=== PATIENT | male | born 1965 | race African-American/Black ===

== ENCOUNTER 2018-02-05 22:29 | Emergency (ER) | payer SELFPAY ==
[2018-02-05 22:39] VITALS: BP 156/99; PULSE 96; TEMP 98.8; BMI 24.4
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
== END 2018-02-06 00:11 | disposition home or self-care (01) ==
LOC: JER 22:29
DX: S02.32XA Fracture of orbital floor, left side, initial encounter for closed fracture (principal); S02.40DA Maxillary fracture, left side, initial encounter for closed fracture; S02.2XXA Fracture of nasal bones, initial encounter for closed fracture; Y04.2XXA Assault by strike against or bumped into by another person, initial encounter; Y93.89 Activity, other specified; Y92.414 Local residential or business street as the place of occurrence of the external cause; Y99.8 Other external cause status; H11.31 Conjunctival hemorrhage, right eye; Z59.0 Homelessness
CPT/HCPCS: 70450-TC; 70486-TC; 99284-25

== ENCOUNTER 2018-06-11 16:46 | Inpatient (IN) | payer OTHER ==
[2018-06-11 20:29] VITALS: BMI 24.5
[2018-06-11] MEDS ORDERED: MELATONIN 5 MG TABLETS PO PRN (22:00)
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
[2018-06-11] MEDS ORDERED: P-EPHED 60MG/TRIPROLIDI 2.5MG TABLET PO PRN (22:18)
[2018-06-11] MEDS ORDERED: LOPERAMIDE HCL 2 MG CAPSULE PO PRN (22:18)
[2018-06-11] MEDS ORDERED: MAGNESIUM HYDROX 2400MG/30ML ORAL SUSPENSION 30 ML CUP PO PRN (22:18)
[2018-06-11] MEDS ORDERED: chlordiazePOXIDE HCL 25 MG CAPSULE PO PRN (22:18)
[2018-06-11] MEDS ORDERED: hydrOXYzine PAMOATE 50 MG CAPSULE (FP) PO PRN (22:18)
[2018-06-11] MEDS ORDERED: MAGNESIUM CITRATE 300 ML BOTTLE PO PRN (22:18)
[2018-06-11] MEDS ORDERED: MENTHOL/PHENOL 1 EACH UD MM PRN (22:18)
[2018-06-11] MEDS ORDERED: MAG HYDROX/AL HYDROX/SIMETH 30 ML UNIT-DOSE CUP PO PRN (22:18)
[2018-06-11] MEDS ORDERED: NICOTINE POLACRILEX 2 MG GUM BUC PRN (22:18)
[2018-06-11] MEDS ORDERED: IBUPROFEN 400 MG TABLET (FP) PO PRN (22:18)
[2018-06-11] MEDS ORDERED: guaiFENesin/D-METHORPHAN HB 10 ML UNIT-DOSE CUPS PO PRN (22:18)
[2018-06-11] MEDS ORDERED: ACETAMINOPHEN 325 MG TABLET (FP) PO PRN (22:18)
[2018-06-11] MEDS: chlordiazePOXIDE HCL 25 MG CAPSULE PO SCH (23:56)
[2018-06-12] MEDS: chlordiazePOXIDE HCL 25 MG CAPSULE PO SCH ×4 (05:58→22:57)
[2018-06-12 10:34] LABS: HEMATOCRIT 36.2 % (35.4-49); HEMOGLOBIN 12.5 GM/dL (11.7-16.9); MCH 31.4 pg (25.7-33.7); MCHC 34.6 g/dl (32.0-35.9); MEAN CELL VOLUME 90.6 fl (80-96); MEAN PLT VOLUME 8.2 fl (7.5-11.1); PLATELET COUNT 281 K/MM3 (134-434); RDW 12.7 % (11.9-15.9); WHITE BLOOD COUNT 4.2 K/mm3 (4.0-10.0)
[2018-06-12 10:50] LABS: CHLORIDE 112 mmol/L (98-107); SODIUM 148 mmol/L (136-145)
[2018-06-12] MEDS: PRENATAL VITAMINS W/ FOLIC ACID TABLET (FP) PO SCH (11:04)
[2018-06-12 11:06] LABS: ALBUMIN 2.7 g/dl (3.4-5.0); ALK PHOS 85 U/L (45-117); ANION GAP 10 (8-16); BILIRUBIN,TOTAL 0.3 mg/dL (0.2-1.0); BLOOD UREA NITROGEN 19 mg/dL (7-18); CALCIUM 8.9 mg/dL (8.5-10.1); CO2 26 mmol/L (21-32); CREATININE 1.3 mg/dL (0.7-1.3); GLUCOSE,RANDOM 99 mg/dL (74-106); SGOT/AST 17 U/L (15-37); SGPT/ALT 25 U/L (12-78); TOT PROT 5.5 g/dl (6.4-8.2)
[2018-06-12] MEDS: NICOTINE 14 MG/24 HOURS TOPICAL PATCH TD SCH (11:06)
[2018-06-12] MEDS ORDERED: PNEUMOC 13-VAL CONJ-DIP CRM/PF 0.5 ML DISP.SYRIN IM ONE ×2 (12:00)
[2018-06-12] MEDS ORDERED: PNEUMOCOCCAL 23 VACCINE 0.5 ML VIAL IM ONE (12:00)
--- NOTE | 2018-06-12 13:16 | EKG ---
Test Reason : Blood Pressure : / mmHG Vent. Rate : 059 BPM Atrial Rate : 059 BPM P-R Int : 150 ms QRS Dur : 084 ms QT Int : 444 ms P-R-T Axes : -08 015 031 degrees QTc Int : 439 ms SINUS BRADYCARDIA WITH SINUS ARRHYTHMIA OTHERWISE NORMAL ECG NO PREVIOUS ECGS AVAILABLE Confirmed by Mario Alberto Ruiz MD ([id number]) on 06/12/2018 1:15:59 PM Referred By: Sreedhar Bob Confirmed By:Mario Alberto Ruiz MD
--- NOTE | 2018-06-12 14:36 | PN ---
S CIWA - CIWA Score Nausea/Vomitin-No Nausea/No Vomiting Muscle Tremors: None Anxiety: 4-Mod. Anxious/Guarded Agitation: 2 Paroxysmal Sweats: 2 Orientation: 0-Oriented Tacttile Disturbances: 2-Mild Itch/Numbness/Burn Auditory Disturbances: 0-None Visual Disturbances: 3-Moderate Sensitivity Headache: 0-None Present CIWA-Ar Total Score: 13 S Progress Note (SOAP) Subjective: Sweating, Anxious, Fatigue. Objective: PATIENT A & O X 3. NO ACUTE DISTRESS. 06/12/18 14:37 Vital Signs Temperature 97.3 F L 06/12/18 13:27 Pulse Rate 68 06/12/18 13:27 Respiratory Rate 15 06/12/18 13:27 Blood Pressure 127/80 06/12/18 13:27 O2 Sat by Pulse Oximetry (%) Laboratory Tests 06/12/18 06/12/18 06/12/18 07:30 07:30 07:30 WBC 4.2 RBC 4.00 Hgb 12.5 Hct 36.2 MCV 90.6 MCH 31.4 MCHC 34.6 RDW 12.7 Plt Count 281 MPV 8.2 Sodium 148 H Potassium 4.0 Chloride 112 H Carbon Dioxide 26 Anion Gap 10 BUN 19 H Creatinine 1.3 Creat Clearance w eGFR 57.75 Random Glucose 99 Calcium 8.9 Total Bilirubin 0.3 AST 17 ALT 25 Alkaline Phosphatase 85 Total Protein 5.5 L Albumin 2.7 L RPR Titer Nonreactive LABS NOTED. UA RESULTS PENDING. 06/12/18 14:38 Assessment: 06/12/18 14:37 WITHDRAWAL SYMPTOMS. Plan: CONTINUE DETOX. INCREASE DAILY PO FLUID INTAKE.
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
[2018-06-12] MEDS: THIAMINE HCL 100 MG TABLET (FP) PO SCH (22:56)
[2018-06-13] MEDS: chlordiazePOXIDE HCL 25 MG CAPSULE PO SCH ×3 (06:44→17:47)
[2018-06-13] MEDS: PRENATAL VITAMINS W/ FOLIC ACID TABLET (FP) PO SCH (10:32)
[2018-06-13] MEDS: NICOTINE 14 MG/24 HOURS TOPICAL PATCH TD SCH (10:33)
--- NOTE | 2018-06-13 12:16 | PN ---
S CIWA - CIWA Score Nausea/Vomitin-No Nausea/No Vomiting Muscle Tremors: 2 Anxiety: 3 Agitation: 0-Normal Activity Paroxysmal Sweats: 3 Orientation: 0-Oriented Tacttile Disturbances: 2-Mild Itch/Numbness/Burn Auditory Disturbances: 0-None Visual Disturbances: 2-Mild Sensitivity Headache: 0-None Present CIWA-Ar Total Score: 12 BHS Progress Note (SOAP) Subjective: Sweating, Anxious, Fatigue. Objective: PATIENT A & O X 3. NO ACUTE DISTRESS. 06/13/18 12:20 Vital Signs Temperature 97.7 F 06/13/18 09:57 Pulse Rate 72 06/13/18 09:57 Respiratory Rate 16 06/13/18 09:57 Blood Pressure 126/79 06/13/18 09:57 O2 Sat by Pulse Oximetry (%) Laboratory Tests 06/12/18 06/12/18 06/12/18 07:30 07:30 07:30 WBC 4.2 RBC 4.00 Hgb 12.5 Hct 36.2 MCV 90.6 MCH 31.4 MCHC 34.6 RDW 12.7 Plt Count 281 MPV 8.2 Sodium 148 H Potassium 4.0 Chloride 112 H Carbon Dioxide 26 Anion Gap 10 BUN 19 H Creatinine 1.3 Creat Clearance w eGFR 57.75 Random Glucose 99 Calcium 8.9 Total Bilirubin 0.3 AST 17 ALT 25 Alkaline Phosphatase 85 Total Protein 5.5 L Albumin 2.7 L RPR Titer Nonreactive LABS NOTED. UA RESULTS PENDING. 06/13/18 12:23 Assessment: 06/13/18 12:21 WITHDRAWAL SYMPTOMS. Plan: CONTINUE DETOX. ENCOURAGE AMBULATION.
[2018-06-13 19:22] LABS: URINE APPEARANCE SLCLOUDY; URINE BILIRUBIN NEGATIVE (<2.0 mg/dL); URINE COLOR YELLOW; URINE GLUCOSE (UA) NEGATIVE (NEGATIVE); URINE KETONE NEGATIVE (NEGATIVE); URINE LEUK ESTERASE NEGATIVE (NEGATIVE); URINE NITRITE NEGATIVE (NEGATIVE); URINE PROTEIN NEGATIVE (NEGATIVE); URINE UROBILINOGEN NEGATIVE mg/dL (0.2-1.0)
[2018-06-13] MEDS: chlordiazePOXIDE 5 MG CAPSULE PO SCH (22:17)
[2018-06-13] MEDS: THIAMINE HCL 100 MG TABLET (FP) PO SCH (22:17)
[2018-06-14] MEDS: chlordiazePOXIDE 5 MG CAPSULE PO SCH ×3 (06:20→17:13)
[2018-06-14] MEDS: PRENATAL VITAMINS W/ FOLIC ACID TABLET (FP) PO SCH (12:20)
[2018-06-14] MEDS: NICOTINE 14 MG/24 HOURS TOPICAL PATCH TD SCH (12:20)
--- NOTE | 2018-06-14 13:44 | PN ---
BHS Progress Note (SOAP) Subjective: Sweating, Fatigue. Objective: PATIENT A & O X 3. NO ACUTE DISTRESS. 06/14/18 13:43 Vital Signs Temperature 98.1 F 06/14/18 09:54 Pulse Rate 71 06/14/18 09:54 Respiratory Rate 18 06/14/18 09:54 Blood Pressure 119/71 06/14/18 09:54 O2 Sat by Pulse Oximetry (%) Laboratory Tests 06/12/18 06/12/18 06/12/18 07:30 07:30 07:30 WBC 4.2 RBC 4.00 Hgb 12.5 Hct 36.2 MCV 90.6 MCH 31.4 MCHC 34.6 RDW 12.7 Plt Count 281 MPV 8.2 Sodium 148 H Potassium 4.0 Chloride 112 H Carbon Dioxide 26 Anion Gap 10 BUN 19 H Creatinine 1.3 Creat Clearance w eGFR 57.75 Random Glucose 99 Calcium 8.9 Total Bilirubin 0.3 AST 17 ALT 25 Alkaline Phosphatase 85 Total Protein 5.5 L Albumin 2.7 L Urine Color Urine Appearance Urine pH Ur Specific [place] Urine Protein Urine Glucose (UA) Urine Ketones Urine Blood Urine Nitrite Urine Bilirubin Urine Urobilinogen Ur Leukocyte Esterase RPR Titer Nonreactive 06/13/18 13:35 WBC RBC Hgb Hct MCV MCH MCHC RDW Plt Count MPV Sodium Potassium Chloride Carbon Dioxide Anion Gap BUN Creatinine Creat Clearance w eGFR Random Glucose Calcium Total Bilirubin AST ALT Alkaline Phosphatase Total Protein Albumin Urine Color Yellow Urine Appearance Slcloudy Urine pH 8.0 Ur Specific [place] 1.019 Urine Protein Negative Urine Glucose (UA) Negative Urine Ketones Negative Urine Blood Negative Urine Nitrite Negative Urine Bilirubin Negative Urine Urobilinogen Negative Ur Leukocyte Esterase Negative RPR Titer LABS NOTED. Assessment: 06/14/18 13:43 WITHDRAWAL SYMPTOMS. Plan: CONTINUE DETOX. PATIENT SCHEDULED FOR D/C TOMORROW.
[2018-06-14] MEDS: chlordiazePOXIDE HCL 10 MG CAPSULE PO SCH (22:31)
[2018-06-14] MEDS: THIAMINE HCL 100 MG TABLET (FP) PO SCH (22:31)
[2018-06-15] MEDS: chlordiazePOXIDE HCL 10 MG CAPSULE PO SCH (06:02)
[2018-06-15] MEDS: PRENATAL VITAMINS W/ FOLIC ACID TABLET (FP) PO SCH (08:59)
[2018-06-15 09:32] VITALS: BP 135/82; PULSE 70; TEMP 97.9
--- NOTE | 2018-06-15 15:15 | PN ---
BHS Progress Note (SOAP) Subjective: Patient denies current Detox symptoms and reports that he feels well overall. Objective: PATIENT A & O X 3, OBSERVED AMBULATING ON UNIT. NO ACUTE DISTRESS. 06/15/18 15:14 Vital Signs Temperature 97.9 F 06/15/18 09:31 Pulse Rate 70 06/15/18 09:31 Respiratory Rate 18 06/15/18 09:31 Blood Pressure 135/82 06/15/18 09:31 O2 Sat by Pulse Oximetry (%) Laboratory Tests 06/12/18 06/12/18 06/12/18 07:30 07:30 07:30 WBC 4.2 RBC 4.00 Hgb 12.5 Hct 36.2 MCV 90.6 MCH 31.4 MCHC 34.6 RDW 12.7 Plt Count 281 MPV 8.2 Sodium 148 H Potassium 4.0 Chloride 112 H Carbon Dioxide 26 Anion Gap 10 BUN 19 H Creatinine 1.3 Creat Clearance w eGFR 57.75 Random Glucose 99 Calcium 8.9 Total Bilirubin 0.3 AST 17 ALT 25 Alkaline Phosphatase 85 Total Protein 5.5 L Albumin 2.7 L Urine Color Urine Appearance Urine pH Ur Specific [place] Urine Protein Urine Glucose (UA) Urine Ketones Urine Blood Urine Nitrite Urine Bilirubin Urine Urobilinogen Ur Leukocyte Esterase RPR Titer Nonreactive 06/13/18 13:35 WBC RBC Hgb Hct MCV MCH MCHC RDW Plt Count MPV Sodium Potassium Chloride Carbon Dioxide Anion Gap BUN Creatinine Creat Clearance w eGFR Random Glucose Calcium Total Bilirubin AST ALT Alkaline Phosphatase Total Protein Albumin Urine Color Yellow Urine Appearance Slcloudy Urine pH 8.0 Ur Specific [place] 1.019 Urine Protein Negative Urine Glucose (UA) Negative Urine Ketones Negative Urine Blood Negative Urine Nitrite Negative Urine Bilirubin Negative Urine Urobilinogen Negative Ur Leukocyte Esterase Negative RPR Titer LABS NOTED. Assessment: 06/15/18 15:14 COMPLETION OF DETOX REGIMEN. Plan: PATIENT SCHEDULED FOR DISCHARGE FROM DETOX UNIT TODAY.
--- NOTE | 2018-06-15 15:21 | DS ---
[facility] Detox Discharge Summary Admission Date: 06/11/18 Discharge Date: 06/15/18 - History Present History: Alcohol Dependence Additional Comments: [facility] ([facility]) FOR HOUSING AND TO '[facility]' OUTPATIENT SUBSTANCE USE TREATMENT PROGRAM (Elie BOND) FOR AFTERCARE. PATIENT WAS DISCHARGED FROM DETOX UNIT IN STABLE MEDICAL CONDITION. Pertinent Past History: Anxiety, Nicotine Dependence. - Physical Exam Results Vital Signs: Vital Signs Temperature 97.9 F 06/15/18 09:31 Pulse Rate 70 06/15/18 09:31 Respiratory Rate 18 06/15/18 09:31 Blood Pressure 135/82 06/15/18 09:31 O2 Sat by Pulse Oximetry (%) Pertinent Admission Physical Exam Findings: WITHDRAWAL SYMPTOMS. Laboratory Tests 06/12/18 06/12/18 06/12/18 07:30 07:30 07:30 WBC 4.2 RBC 4.00 Hgb 12.5 Hct 36.2 MCV 90.6 MCH 31.4 MCHC 34.6 RDW 12.7 Plt Count 281 MPV 8.2 Sodium 148 H Potassium 4.0 Chloride 112 H Carbon Dioxide 26 Anion Gap 10 BUN 19 H Creatinine 1.3 Creat Clearance w eGFR 57.75 Random Glucose 99 Calcium 8.9 Total Bilirubin 0.3 AST 17 ALT 25 Alkaline Phosphatase 85 Total Protein 5.5 L Albumin 2.7 L Urine Color Urine Appearance Urine pH Ur Specific [place] Urine Protein Urine Glucose (UA) Urine Ketones Urine Blood Urine Nitrite Urine Bilirubin Urine Urobilinogen Ur Leukocyte Esterase RPR Titer Nonreactive 06/13/18 13:35 WBC RBC Hgb Hct MCV MCH MCHC RDW Plt Count MPV Sodium Potassium Chloride Carbon Dioxide Anion Gap BUN Creatinine Creat Clearance w eGFR Random Glucose Calcium Total Bilirubin AST ALT Alkaline Phosphatase Total Protein Albumin Urine Color Yellow Urine Appearance Slcloudy Urine pH 8.0 Ur Specific [place] 1.019 Urine Protein Negative Urine Glucose (UA) Negative Urine Ketones Negative Urine Blood Negative Urine Nitrite Negative Urine Bilirubin Negative Urine Urobilinogen Negative Ur Leukocyte Esterase Negative RPR Titer LABS NOTED. - Treatment Hospital Course: Detox Protocol Followed, Detoxed Safely, Responded well, Discharged Condition Good Patient has Accepted a Rehab Referral to: PT. TO ATTEND [facility] OP SUBSTNACE TREATMENT PROGRAM (Elie BOND). - Medication Discharge Medications: Ambulatory Orders NK [No Known Home Medication] 02/05/18 - Diagnosis (1) Alcohol dependence with uncomplicated withdrawal Status: Acute (2) Nicotine dependence Status: Chronic Qualifiers: Nicotine product type: cigarettes Substance use status: uncomplicated Qualified Code(s): F17.210 - Nicotine dependence, cigarettes, uncomplicated (3) Substance induced mood disorder Status: Acute - AMA Did Patient Leave Against Medical Advice: No
== END 2018-06-15 09:10 | disposition home or self-care (01) | DRG 775 ==
LOC: YASAS 16:46 → Y3N 22:56
PROVIDERS: ADMIT Surgery; ATTEND Surgery
PROC: HZ2ZZZZ Detoxification Services for Substance Abuse Treatment (ICD-10-PCS; principal; 2018-06-11)
DX: F10.230 Alcohol dependence with withdrawal, uncomplicated (principal); F17.210 Nicotine dependence, cigarettes, uncomplicated; F19.24 Other psychoactive substance dependence with psychoactive substance-induced mood disorder
CPT/HCPCS: 36415; 80053; 81003; 85027; 86593; 93005; 93010

== ENCOUNTER 2018-07-24 08:17 | Inpatient (IN) | payer OTHER ==
[2018-07-24 08:36] VITALS: BMI 23.7
--- NOTE | 2018-07-24 09:01 | HP ---
COWS - Scale Resting Pulse: 1= NE 81-100 Sweatin= Chills/Flushing Restless Observation: 3= Extraneous Movement Pupil Size: 1= Pupils >than Normal Bone or Joint Aches: 2= Severe Diffuse Aches Runny Nose/ Eye Tearin= Runny Nose/Eyes GI Upset > 30mins: 2= Nausea/Diarrhea Tremor Observation: 2= Slight Tremor Visible Yawning Observation: 2= >3x During Session Anxiety or Irritability: 2=Irritable/Anxious Goose Flesh Skin: 0=Smooth Skin COWS Score: 18 CIWA Score - CIWA Score Nausea/Vomitin Muscle Tremors: 3 Anxiety: 3 Agitation: 2 Paroxysmal Sweats: 1-Minimal Palms Moist Orientation: 0-Oriented Tacttile Disturbances: 1-Very Mild Itch/Numbness Auditory Disturbances: 1-Very Mild Visual Disturbances: 1-Very Mild Sensitivity Headache: 2-Mild CIWA-Ar Total Score: 16 Admission ROS BHS - HPI Chief Complaint: i need help to stop using heroin and alcohol Allergies/Adverse Reactions: Allergies Allergy/AdvReac Type Severity Reaction Status Date / Time shrimp AdvReac Verified 07/24/18 09:11 History of Present Illness: this 52 years old male with heroin and alcoholism,seeking detox,withdrawal symptom,last treatment 06/11/18 to 06/15/18 syncope nicotine dependence weight loss anxiety,depression,insomnia multiples admissions to detox but keep relapsing longest period of sobriety 5 years Exam Limitations: No Limitations - Ebola screening Have you traveled outside of the country in the last 21 days: No Have you had contact with anyone from an Ebola affected area: No Have you been sick,other than usual withdrawal symptoms: No Do you have a fever: No - Review of Systems Constitutional: Chills, Loss of Appetite, Malaise, Night Sweats, Changes in sleep, Weakness EENT: reports: Tearing, Nose Congestion Respiratory: reports: No Symptoms reported Cardiac: reports: No Symptoms Reported GI: reports: Nausea, Vomiting, Abdominal cramping : reports: No Symptoms Reported Musculoskeletal: reports: Back Pain, Joint Pain, Muscle Pain, Joint Stiffness Integumentary: reports: Dryness Neuro: reports: Headache, Tremors Endocrine: reports: No Symptoms Reported Hematology: reports: No Symptoms Reported Psychiatric: reports: No Sypmtoms Reported, Judgement Intact, Mood/Affect Appropiate, Orientated x3, Agitated, Anxious, Depressed Other Systems: Reviewed and Negative (insomnia) Patient History - Patient Medical History Hx Anemia: No Hx Asthma: No Hx Chronic Obstructive Pulmonary Disease (COPD): No Hx Cancer: No Hx Cardiac Disorders: No Hx Congestive Heart Failure: No Hx Hypertension: No Hx Hypercholesterolemia: No Hx Pacemaker: No HX Cerebrovascular Accident: No Hx Seizures: No Hx Dementia: No Hx Diabetes: No Hx Gastrointestinal Disorders: No Hx Liver Disease: No Hx Genitourinary Disorders: No Hx Sexually Transmitted Disorders: No Hx Renal Disease (ESRD): No Hx Thyroid Disease: No Hx Human Immunodeficiency Virus (HIV): No (last 06/11/18 to 06/15/18) Hx Hepatitis C: No Hx Depression: No Hx Suicide Attempt: No Hx Bipolar Disorder: No Hx Schizophrenia: No Other Medical History: no suicidal,no homicidal - Patient Surgical History Past Surgical History: No Hx Neurologic Surgery: No Hx Cataract Extraction: No Hx Cardiac Surgery: No Hx Lung Surgery: No Hx Breast Surgery: No Hx Breast Biopsy: No Hx Abdominal Surgery: No Hx Appendectomy: No Hx Cholecystectomy: No Hx Genitourinary Surgery: No Hx Orthopedic Surgery: No Anesthesia Reaction: No - PPD History Previous Implant?: Yes Documented Results: Negative w/proof Implanted On Prior [facility] Admission?: Yes Date: 06/14/18 PPD to be Administered?: No - Smoking Cessation Smoking history: Current every day smoker Have you smoked in the past 12 months: Yes Aproximately how many cigarettes per day: 4 Cigars Per Day: 0 Hx Chewing Tobacco Use: No Initiated information on smoking cessation: Yes 'Breaking Loose' booklet given: 07/24/18 - Substance & Tx. History Hx Alcohol Use: Yes Hx Substance Use: Yes Substance Use Type: Alcohol, Heroin Hx Substance Use Treatment: Yes ([facility] 06/11/18 to 06/15/18) - Substances Abused Heroin Route: Inhalation Frequency: Daily Amount used: 3 bags Age of first use: 27 Date of Last Use: 07/23/18 Alcohol Route: Oral Frequency: Daily Amount used: 1 pint of vodka/2 of 6 packs of 12 ozs of beer Age of first use: 17 Date of Last Use: 07/24/18 Family Disease History - Family Disease History Family Disease History: Other: Father (ALCOHOLISM- CIRRHOSIS OF LIVER) Admission Physical Exam BHS - Vital Signs Vital Signs: Vital Signs - 24 hr 07/24/18 08:33 Temperature 97.6 F Pulse Rate 81 Respiratory 19 Rate Blood Pressure 135/79 - Physical General Appearance: Yes: Moderate Distress, Tremorous, Irritable, Sweating, Anxious HEENTM: Yes: Normal ENT Inspection, BRUCE, Pharynx Normal Respiratory: Yes: Lungs Clear, Normal Breath Sounds, No Respiratory Distress Neck: Yes: Within Normal Limits, Supple, Trachea in good position Breast: Yes: Within Normal Limits Cardiology: Yes: Within Normal Limits, Regular Rhythm, Regular Rate, S1, S2 Genitourinary: Yes: Within Normal Limits Back: Yes: Muscle Spasm Musculoskeletal: Yes: full range of Motion, Back pain, Muscle Pain Extremities: Yes: Within Normal Limits, Normal Range of Motion, Tremors Neurological: Yes: tattoo designer II-XII NML intact, Fully Oriented, Alert, Motor Strength 5/5 Integumentary: Yes: Dry Lymphatic: Yes: Within Normal Limits - Diagnostic (1) Opioid dependence with withdrawal Current Visit: Yes Status: Acute (2) Alcohol dependence with uncomplicated withdrawal Current Visit: Yes Status: Acute (3) Nicotine dependence Current Visit: Yes Status: Acute Qualifiers: Nicotine product type: cigarettes Substance use status: uncomplicated Qualified Code(s): F17.210 - Nicotine dependence, cigarettes, uncomplicated (4) Syncope Current Visit: Yes Status: Acute Cleared for Admission [facility] - Detox or Rehab [facility] Level of Care: Medically Managed Detox Regimen/Protocol: Methadone/Librium [facility] Breath Alcohol Content Breath Alcohol Content: 0 Urine Drug Screen - Results Drug Screen Negative: No Urine Drug Screen Results: ANNE-MARIE-Cocaine, OPI-Opiates, FEN-Fentanyl
[2018-07-24] MEDS ORDERED: MENTHOL/PHENOL 1 EACH UD MM PRN (09:11)
[2018-07-24] MEDS ORDERED: MAGNESIUM CITRATE 300 ML BOTTLE PO PRN (09:11)
[2018-07-24] MEDS ORDERED: MAGNESIUM HYDROX 2400MG/30ML ORAL SUSPENSION 30 ML CUP PO PRN (09:11)
[2018-07-24] MEDS ORDERED: LOPERAMIDE HCL 2 MG CAPSULE PO PRN (09:11)
[2018-07-24] MEDS ORDERED: guaiFENesin/D-METHORPHAN HB 10 ML UNIT-DOSE CUPS PO PRN (09:11)
[2018-07-24] MEDS ORDERED: ACETAMINOPHEN 325 MG TABLET (FP) PO PRN (09:11)
[2018-07-24] MEDS ORDERED: IBUPROFEN 400 MG TABLET (FP) PO PRN (09:11)
[2018-07-24] MEDS ORDERED: hydrOXYzine PAMOATE 25 MG CAPSULE (FP) PO PRN (09:11)
[2018-07-24] MEDS ORDERED: P-EPHED 60MG/TRIPROLIDI 2.5MG TABLET PO PRN (09:11)
[2018-07-24] MEDS ORDERED: chlordiazePOXIDE HCL 25 MG CAPSULE PO PRN (09:11)
[2018-07-24] MEDS ORDERED: MAG HYDROX/AL HYDROX/SIMETH 30 ML UNIT-DOSE CUP PO PRN (09:11)
[2018-07-24] MEDS ORDERED: METHADONE HCL 10 MG TABLET (FOR DETOX USE ONLY) PO ONE ×2 (10:10→23:00)
[2018-07-24] MEDS: PRENATAL VITAMINS W/ FOLIC ACID TABLET (FP) PO SCH (11:53)
[2018-07-24] MEDS: chlordiazePOXIDE HCL 25 MG CAPSULE PO SCH ×3 (11:55→22:04)
--- NOTE | 2018-07-24 16:04 | EKG ---
Test Reason : Blood Pressure : / mmHG Vent. Rate : 077 BPM Atrial Rate : 077 BPM P-R Int : 148 ms QRS Dur : 088 ms QT Int : 408 ms P-R-T Axes : 078 041 029 degrees QTc Int : 461 ms NORMAL SINUS RHYTHM NORMAL ECG WHEN COMPARED WITH ECG OF 11-JUN-2018 23:41, NO SIGNIFICANT CHANGE WAS FOUND Confirmed by Mario Alberto Ruiz MD ([id number]) on 07/24/2018 4:04:03 PM Referred By: Confirmed By:Mario Alberto Ruiz MD
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
[2018-07-24 18:45] LABS: URINE APPEARANCE CLEAR; URINE BILIRUBIN NEGATIVE (<2.0 mg/dL); URINE COLOR STRAW; URINE GLUCOSE (UA) NEGATIVE (NEGATIVE); URINE KETONE NEGATIVE (NEGATIVE); URINE LEUK ESTERASE NEGATIVE (NEGATIVE); URINE NITRITE NEGATIVE (NEGATIVE); URINE PROTEIN NEGATIVE (NEGATIVE); URINE UROBILINOGEN NEGATIVE mg/dL (0.2-1.0)
[2018-07-24] MEDS ORDERED: MELATONIN 5 MG TABLETS PO PRN (22:00)
[2018-07-24] MEDS: THIAMINE HCL 100 MG TABLET (FP) PO SCH (22:04)
[2018-07-25] MEDS: chlordiazePOXIDE HCL 25 MG CAPSULE PO SCH ×4 (06:29→22:10)
[2018-07-25] MEDS ORDERED: METHADONE HCL 10 MG TABLET (FOR DETOX USE ONLY) PO SCH (10:00)
[2018-07-25] MEDS: PRENATAL VITAMINS W/ FOLIC ACID TABLET (FP) PO SCH (10:21)
[2018-07-25 10:26] LABS: HEMOGLOBIN 12.5 GM/dL (11.7-16.9); MCH 29.9 pg (25.7-33.7); MCHC 32.8 g/dl (32.0-35.9); MEAN PLT VOLUME 8.2 fl (7.5-11.1); PLATELET COUNT 228 K/MM3 (134-434); RBC 4.17 M/mm3 (4.00-5.60); RDW 12.2 % (11.9-15.9); WHITE BLOOD COUNT 6.7 K/mm3 (4.0-10.0)
[2018-07-25 11:10] LABS: ALBUMIN 3.3 g/dl (3.4-5.0); ALK PHOS 56 U/L (45-117); ANION GAP 11 MMOL/L (8-16); BILIRUBIN,TOTAL 0.2 mg/dL (0.2-1); BLOOD UREA NITROGEN 17 mg/dL (7-18); CALCIUM 8.5 mg/dL (8.5-10.1); CHLORIDE 107 mmol/L (98-107); CO2 27 mmol/L (21-32); CREATININE 1.3 mg/dL (0.55-1.3); GLUCOSE,RANDOM 94 mg/dL (74-106); POTASSIUM 3.9 mmol/L (3.5-5.1); SGOT/AST 19 U/L (15-37); SGPT/ALT 27 U/L (13-61); SODIUM 145 mmol/L (136-145); TOT PROT 6.2 g/dl (6.4-8.2)
[2018-07-25] MEDS ORDERED: FLU VACCINE QUAD 60 MCG/0.5 ML (MDV 18-19) IM ONE (12:00)
--- NOTE | 2018-07-25 13:43 | PN ---
S CIWA - CIWA Score Nausea/Vomitin Muscle Tremors: 4-Moderate,w/Arms Extend Anxiety: 4-Mod. Anxious/Guarded Agitation: 4-Moderately Restless Paroxysmal Sweats: 3 Orientation: 0-Oriented Tacttile Disturbances: 1-Very Mild Itch/Numbness Auditory Disturbances: 0-None Visual Disturbances: 0-None Headache: 0-None Present CIWA-Ar Total Score: 19 BHS COWS - Scale Resting Pulse: 0= IN 80 or Below Sweatin=Flushed/Facial Moisture Restless Observation: 3= Extraneous Movement Pupil Size: 1= Pupils >than Normal Bone or Joint Aches: 2= Severe Diffuse Aches Runny Nose/ Eye Tearin= Runny Nose/Eyes GI Upset > 30mins: 2= Nausea/Diarrhea Tremor Observation of Outstretched Hands: 2= Slight Tremor Visible Yawning Observation: 1= 1-2x During Session Anxiety or Irritability: 2=Irritable/Anxious Goose Flesh Skin: 0=Smooth Skin COWS Score: 17 [facility] Progress Note (SOAP) Subjective: Anxious, sweating, interrupted sleep Objective: 07/25/18 13:43 Last Vital Signs Temp Pulse Resp BP Pulse Ox 96 F L 80 18 127/76 07/25/18 09:04 07/25/18 13:34 07/25/18 13:34 07/25/18 13:34 Laboratory Tests 07/24/18 07/25/18 07/25/18 16:30 06:00 06:00 WBC 6.7 RBC 4.17 Hgb 12.5 Hct 38.0 MCV 91.0 MCH 29.9 MCHC 32.8 RDW 12.2 Plt Count 228 MPV 8.2 Sodium 145 Potassium 3.9 Chloride 107 Carbon Dioxide 27 Anion Gap 11 BUN 17 Creatinine 1.3 Creat Clearance w eGFR 57.75 Random Glucose 94 Calcium 8.5 Total Bilirubin 0.2 AST 19 ALT 27 Alkaline Phosphatase 56 Total Protein 6.2 L Albumin 3.3 L Urine Color Straw Urine Appearance Clear Urine pH 6.0 D Ur Specific [place] 1.003 Urine Protein Negative Urine Glucose (UA) Negative Urine Ketones Negative Urine Blood Negative Urine Nitrite Negative Urine Bilirubin Negative Urine Urobilinogen Negative Ur Leukocyte Esterase Negative RPR Titer 07/25/18 06:00 WBC RBC Hgb Hct MCV MCH MCHC RDW Plt Count MPV Sodium Potassium Chloride Carbon Dioxide Anion Gap BUN Creatinine Creat Clearance w eGFR Random Glucose Calcium Total Bilirubin AST ALT Alkaline Phosphatase Total Protein Albumin Urine Color Urine Appearance Urine pH Ur Specific [place] Urine Protein Urine Glucose (UA) Urine Ketones Urine Blood Urine Nitrite Urine Bilirubin Urine Urobilinogen Ur Leukocyte Esterase RPR Titer Nonreactive Labs reviewed: azotemia Assessment: 07/25/18 13:44 Withdrawal sxs Noted with azotemia Plan: Continue detox Azotemia: encouraged PO water intake
[2018-07-25] MEDS: THIAMINE HCL 100 MG TABLET (FP) PO SCH (22:10)
[2018-07-26] MEDS: chlordiazePOXIDE HCL 25 MG CAPSULE PO SCH (06:10)
[2018-07-26] MEDS: PRENATAL VITAMINS W/ FOLIC ACID TABLET (FP) PO SCH (10:38)
[2018-07-26] MEDS: chlordiazePOXIDE 5 MG CAPSULE PO SCH ×3 (10:38→22:27)
[2018-07-26] MEDS: METHADONE HCL 5 MG TABLET (FOR DETOX USE ONLY) PO SCH (10:38)
[2018-07-26] MEDS ORDERED: cloNIDine HCL 0.1 MG TABLET PO PRN (10:47)
--- NOTE | 2018-07-26 12:41 | PN ---
[facility] CIWA - CIWA Score Nausea/Vomitin Muscle Tremors: 3 Anxiety: 3 Agitation: 3 Paroxysmal Sweats: 3 Orientation: 0-Oriented Tacttile Disturbances: 0-None Auditory Disturbances: 0-None Visual Disturbances: 0-None Headache: 1-Very Mild CIWA-Ar Total Score: 15 [facility] COWS - Scale Resting Pulse: 0= [place] 80 or Below Sweatin= Chills/Flushing Restless Observation: 3= Extraneous Movement Pupil Size: 0= Normal to Room Light Bone or Joint Aches: 2= Severe Diffuse Aches Runny Nose/ Eye Tearin= Nasal Congestion GI Upset > 30mins: 3= Vomiting/Diarrhea Tremor Observation of Outstretched Hands: 2= Slight Tremor Visible Yawning Observation: 1= 1-2x During Session Anxiety or Irritability: 2=Irritable/Anxious Goose Flesh Skin: 0=Smooth Skin COWS Score: 15 [facility] Progress Note (SOAP) Subjective: Sweating, anxious Objective: 07/26/18 12:35 Last Vital Signs Temp Pulse Resp BP Pulse Ox 97.7 F 75 18 149/94 07/26/18 09:30 07/26/18 09:30 07/26/18 09:30 07/26/18 09:30 Noted with elevated blood pressure: 149/94 Laboratory Tests 07/24/18 07/25/18 07/25/18 16:30 06:00 06:00 WBC 6.7 RBC 4.17 Hgb 12.5 Hct 38.0 MCV 91.0 MCH 29.9 MCHC 32.8 RDW 12.2 Plt Count 228 MPV 8.2 Sodium 145 Potassium 3.9 Chloride 107 Carbon Dioxide 27 Anion Gap 11 BUN 17 Creatinine 1.3 Creat Clearance w eGFR 57.75 Random Glucose 94 Calcium 8.5 Total Bilirubin 0.2 AST 19 ALT 27 Alkaline Phosphatase 56 Total Protein 6.2 L Albumin 3.3 L Urine Color Straw Urine Appearance Clear Urine pH 6.0 D Ur Specific [place] 1.003 Urine Protein Negative Urine Glucose (UA) Negative Urine Ketones Negative Urine Blood Negative Urine Nitrite Negative Urine Bilirubin Negative Urine Urobilinogen Negative Ur Leukocyte Esterase Negative RPR Titer 07/25/18 06:00 WBC RBC Hgb Hct MCV MCH MCHC RDW Plt Count MPV Sodium Potassium Chloride Carbon Dioxide Anion Gap BUN Creatinine Creat Clearance w eGFR Random Glucose Calcium Total Bilirubin AST ALT Alkaline Phosphatase Total Protein Albumin Urine Color Urine Appearance Urine pH Ur Specific [place] Urine Protein Urine Glucose (UA) Urine Ketones Urine Blood Urine Nitrite Urine Bilirubin Urine Urobilinogen Ur Leukocyte Esterase RPR Titer Nonreactive Labs reviewed: GFR 57.75 Assessment: 07/26/18 12:41 Withdrawal sxs Noted with azotemia Plan: Continue detox Azotemia: encouraged PO water hydration
[2018-07-26] MEDS: THIAMINE HCL 100 MG TABLET (FP) PO SCH (22:27)
[2018-07-27] MEDS: chlordiazePOXIDE 5 MG CAPSULE PO SCH (05:29)
[2018-07-27] MEDS: METHADONE HCL 5 MG TABLET (FOR DETOX USE ONLY) PO SCH (10:27)
[2018-07-27] MEDS: PRENATAL VITAMINS W/ FOLIC ACID TABLET (FP) PO SCH (10:27)
[2018-07-27] MEDS: chlordiazePOXIDE HCL 10 MG CAPSULE PO SCH ×3 (10:28→22:43)
--- NOTE | 2018-07-27 15:53 | PN ---
[facility] Progress Note (SOAP) Subjective: Sweating Objective: 07/27/18 15:51 Last Vital Signs Temp Pulse Resp BP Pulse Ox 98.3 F 76 18 125/74 07/27/18 13:30 07/27/18 13:30 07/27/18 13:30 07/27/18 13:30 Laboratory Tests 07/24/18 07/25/18 07/25/18 16:30 06:00 06:00 WBC 6.7 RBC 4.17 Hgb 12.5 Hct 38.0 MCV 91.0 MCH 29.9 MCHC 32.8 RDW 12.2 Plt Count 228 MPV 8.2 Sodium 145 Potassium 3.9 Chloride 107 Carbon Dioxide 27 Anion Gap 11 BUN 17 Creatinine 1.3 Creat Clearance w eGFR 57.75 Random Glucose 94 Calcium 8.5 Total Bilirubin 0.2 AST 19 ALT 27 Alkaline Phosphatase 56 Total Protein 6.2 L Albumin 3.3 L Urine Color Straw Urine Appearance Clear Urine pH 6.0 D Ur Specific [place] 1.003 Urine Protein Negative Urine Glucose (UA) Negative Urine Ketones Negative Urine Blood Negative Urine Nitrite Negative Urine Bilirubin Negative Urine Urobilinogen Negative Ur Leukocyte Esterase Negative RPR Titer 07/25/18 06:00 WBC RBC Hgb Hct MCV MCH MCHC RDW Plt Count MPV Sodium Potassium Chloride Carbon Dioxide Anion Gap BUN Creatinine Creat Clearance w eGFR Random Glucose Calcium Total Bilirubin AST ALT Alkaline Phosphatase Total Protein Albumin Urine Color Urine Appearance Urine pH Ur Specific [place] Urine Protein Urine Glucose (UA) Urine Ketones Urine Blood Urine Nitrite Urine Bilirubin Urine Urobilinogen Ur Leukocyte Esterase RPR Titer Nonreactive Labs reviewed: azotemia Assessment: 07/27/18 15:52 Withdrawal sxs Noted with azotemia Plan: Continue detox Azotemia: encouraged to drink more water for hydration
[2018-07-27] MEDS: THIAMINE HCL 100 MG TABLET (FP) PO SCH (22:42)
[2018-07-28] MEDS: chlordiazePOXIDE HCL 10 MG CAPSULE PO SCH (05:20)
[2018-07-28] MEDS ORDERED: METHADONE HCL 10 MG TABLET (FOR DETOX USE ONLY) PO SCH (10:00)
[2018-07-28] MEDS: PRENATAL VITAMINS W/ FOLIC ACID TABLET (FP) PO SCH (10:50)
--- NOTE | 2018-07-28 15:26 | PN ---
[facility] Progress Note Note: Vital Signs Temperature 97.6 F 07/28/18 09:20 Pulse Rate 66 07/28/18 13:30 Respiratory Rate 18 07/28/18 13:30 Blood Pressure 126/78 07/28/18 13:30 O2 Sat by Pulse Oximetry (%) Laboratory Last Values WBC 6.7 K/mm3 (4.0-10.0) 07/25/18 06:00 RBC 4.17 M/mm3 (4.00-5.60) 07/25/18 06:00 Hgb 12.5 GM/dL (11.7-16.9) 07/25/18 06:00 Hct 38.0 % (35.4-49) 07/25/18 06:00 MCV 91.0 fl (80-96) 07/25/18 06:00 MCH 29.9 pg (25.7-33.7) 07/25/18 06:00 MCHC 32.8 g/dl (32.0-35.9) 07/25/18 06:00 RDW 12.2 % (11.9-15.9) 07/25/18 06:00 Plt Count 228 K/MM3 (134-434) 07/25/18 06:00 MPV 8.2 fl (7.5-11.1) 07/25/18 06:00 Sodium 145 mmol/L (136-145) 07/25/18 06:00 Potassium 3.9 mmol/L (3.5-5.1) 07/25/18 06:00 Chloride 107 mmol/L (98-107) 07/25/18 06:00 Carbon Dioxide 27 mmol/L (21-32) 07/25/18 06:00 Anion Gap 11 MMOL/L (8-16) 07/25/18 06:00 BUN 17 mg/dL (7-18) 07/25/18 06:00 Creatinine 1.3 mg/dL (0.55-1.3) 07/25/18 06:00 Creat Clearance w eGFR 57.75 (>60) 07/25/18 06:00 Random Glucose 94 mg/dL (74-106) 07/25/18 06:00 Calcium 8.5 mg/dL (8.5-10.1) 07/25/18 06:00 Total Bilirubin 0.2 mg/dL (0.2-1) 07/25/18 06:00 AST 19 U/L (15-37) 07/25/18 06:00 ALT 27 U/L (13-61) 07/25/18 06:00 Alkaline Phosphatase 56 U/L (45-117) 07/25/18 06:00 Total Protein 6.2 g/dl (6.4-8.2) L 07/25/18 06:00 Albumin 3.3 g/dl (3.4-5.0) L 07/25/18 06:00 Urine Color Straw 07/24/18 16:30 Urine Appearance Clear 07/24/18 16:30 Urine pH 6.0 (5.0-8.0) D 07/24/18 16:30 Ur Specific [place] 1.003 (1.001-1.035) 07/24/18 16:30 Urine Protein Negative (NEGATIVE) 07/24/18 16:30 Urine Glucose (UA) Negative (NEGATIVE) 07/24/18 16:30 Urine Ketones Negative (NEGATIVE) 07/24/18 16:30 Urine Blood Negative (NEGATIVE) 07/24/18 16:30 Urine Nitrite Negative (NEGATIVE) 07/24/18 16:30 Urine Bilirubin Negative (<2.0 mg/dL) 07/24/18 16:30 Urine Urobilinogen Negative mg/dL (0.2-1.0) 07/24/18 16:30 Ur Leukocyte Esterase Negative (NEGATIVE) 07/24/18 16:30 RPR Titer Nonreactive (NONREACTIVE) 07/25/18 06:00 c/o fatigue AOx3 no distress Full ROM ambulating independently in the unit no adventitious breath sounds withdrawal sx increase PO fluids continue detox continue to monitor
[2018-07-28] MEDS: THIAMINE HCL 100 MG TABLET (FP) PO SCH (22:30)
[2018-07-29] MEDS ORDERED: METHADONE HCL 5 MG TABLET (FOR DETOX USE ONLY) PO SCH (06:00)
[2018-07-29 06:44] VITALS: BP 122/78; PULSE 62; TEMP 97
== END 2018-07-29 09:00 | disposition home or self-care (01) | DRG 773 ==
LOC: YASAS 08:17 → Y6N 09:26 → Y3N 11:00
PROC: HZ2ZZZZ Detoxification Services for Substance Abuse Treatment (ICD-10-PCS; principal; 2018-07-24)
DX: F11.23 Opioid dependence with withdrawal (principal); F10.230 Alcohol dependence with withdrawal, uncomplicated; F14.10 Cocaine abuse, uncomplicated; F17.210 Nicotine dependence, cigarettes, uncomplicated; F19.24 Other psychoactive substance dependence with psychoactive substance-induced mood disorder; R55 Syncope and collapse; R79.89 Other specified abnormal findings of blood chemistry
CPT/HCPCS: 36415; 80053; 81003; 85027; 86593; 93005; 93010; J0735

== ENCOUNTER 2018-08-01 09:29 | Inpatient (IN) | payer OTHER ==
[2018-08-01 09:56] VITALS: BMI 22.3
--- NOTE | 2018-08-01 10:47 | HP ---
[facility] Rehab Assess/Revision - Admission History Admitted to Rehab from: [facility] - Vital signs Vital Signs: Vital Signs Period Temp Pulse Resp BP Sys/Santos Pulse Ox Last 24 Hr 97.8 F 86 18 121/68 - Findings Detox History & Physical reviewed: Yes Concur with findings: Yes Comments/Additional Findings: for rehab as protocol Inpatient Rehab Admission - Initial Determination Are CD services needed?: Yes Free of communicable disease: Yes Not in need of hospitalization: Yes - Rehab Admission Criteria Previous failed treatment: Yes Poor recovery environment: Yes Comorbidities: Yes Lacks judgement: No Patient is meeting Inpatient Rehab admission criteria:: Yes
[2018-08-01] MEDS ORDERED: ACETAMINOPHEN 325 MG TABLET (FP) PO PRN (10:48)
[2018-08-01] MEDS ORDERED: P-EPHED 60MG/TRIPROLIDI 2.5MG TABLET PO PRN (10:48)
[2018-08-01] MEDS ORDERED: MENTHOL/PHENOL 1 EACH UD MM PRN (10:48)
[2018-08-01] MEDS ORDERED: MAGNESIUM HYDROX 2400MG/30ML ORAL SUSPENSION 30 ML CUP PO PRN (10:48)
[2018-08-01] MEDS ORDERED: LOPERAMIDE HCL 2 MG CAPSULE PO PRN (10:48)
[2018-08-01] MEDS ORDERED: IBUPROFEN 400 MG TABLET (FP) PO PRN (10:48)
[2018-08-01] MEDS ORDERED: hydrOXYzine PAMOATE 50 MG CAPSULE (FP) PO PRN (10:48)
[2018-08-01] MEDS ORDERED: MAG HYDROX/AL HYDROX/SIMETH 30 ML UNIT-DOSE CUP PO PRN (10:48)
[2018-08-01] MEDS ORDERED: MAGNESIUM CITRATE 300 ML BOTTLE PO PRN (10:48)
[2018-08-01] MEDS ORDERED: guaiFENesin/D-METHORPHAN HB 10 ML UNIT-DOSE CUPS PO PRN (10:48)
[2018-08-01 12:52] VITALS: BP 141/74; PULSE 83; TEMP 98.4
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
[2018-08-01 14:39] LABS: URINE APPEARANCE CLEAR; URINE BILIRUBIN NEGATIVE (<2.0 mg/dL); URINE COLOR YELLOW; URINE GLUCOSE (UA) NEGATIVE (NEGATIVE); URINE KETONE NEGATIVE (NEGATIVE); URINE LEUK ESTERASE NEGATIVE (NEGATIVE); URINE NITRITE NEGATIVE (NEGATIVE); URINE PROTEIN NEGATIVE (NEGATIVE)
[2018-08-01] MEDS: THIAMINE HCL 100 MG TABLET (FP) PO SCH (21:13)
[2018-08-01] MEDS ORDERED: MELATONIN 5 MG TABLETS PO PRN (22:00)
[2018-08-02] MEDS: PRENATAL VITAMINS W/ FOLIC ACID TABLET (FP) PO SCH (10:20)
[2018-08-02] MEDS: THIAMINE HCL 100 MG TABLET (FP) PO SCH (21:11)
[2018-08-03] MEDS: PRENATAL VITAMINS W/ FOLIC ACID TABLET (FP) PO SCH (10:12)
--- NOTE | 2018-08-03 15:51 | PN ---
[facility] Progress Note Note: patient decided to sign out today.He didnt meet his treatment goals and will continue to address his issues on outpatient basis .See staff notes for details.
== END 2018-08-03 15:50 | disposition left against medical advice (07) | DRG 770 ==
LOC: YASAS 09:29 → Y5N 11:19
PROVIDERS: ADMIT Psychiatry & Neurology Psychiatry; ATTEND Psychiatry & Neurology Psychiatry
PROC: HZ42ZZZ Group Counseling for Substance Abuse Treatment, Cognitive-Behavioral (ICD-10-PCS; principal; 2018-08-01)
DX: F11.20 Opioid dependence, uncomplicated (principal); F10.20 Alcohol dependence, uncomplicated; F17.210 Nicotine dependence, cigarettes, uncomplicated
CPT/HCPCS: 81003

== ENCOUNTER 2018-08-30 08:27 | Inpatient (IN) | payer OTHER ==
--- NOTE | 2018-08-30 08:50 | HP ---
COWS - Scale Resting Pulse: 1= [place] 81-100 Sweatin= Chills/Flushing Restless Observation: 1= Difficult to Sit Still Pupil Size: 1= Pupils >than Normal Bone or Joint Aches: 2= Severe Diffuse Aches Runny Nose/ Eye Tearin= Runny Nose/Eyes GI Upset > 30mins: 2= Nausea/Diarrhea Tremor Observation: 2= Slight Tremor Visible Yawning Observation: 1= 1-2x During Session Anxiety or Irritability: 2=Irritable/Anxious Goose Flesh Skin: 0=Smooth Skin COWS Score: 15 CIWA Score Nausea/Vomitin Muscle Tremors: 2 Anxiety: 2 Agitation: 2 Paroxysmal Sweats: 1-Minimal Palms Moist Orientation: 0-Oriented Tacttile Disturbances: 1-Very Mild Itch/Numbness Auditory Disturbances: 1-Very Mild Visual Disturbances: 1-Very Mild Sensitivity Headache: 2-Mild CIWA-Ar Total Score: 14 - Admission Criteria [facility] Guidelines: Admission for Medically Managed Detox: Requires at least one of the followin. CIWA greater than 12 2. Seizures within the past 24 hours 3. Delirium tremens within the past 24 hours 4. Hallucinations within the past 24 hours 5. Acute intervention needed for co occurring medical disorder 6. Acute intervention needed for co occurring psychiatric disorder 7. Severe withdrawal that cannot be handled at a lower level of care (continued vomiting, continued diarrhea, abnormal vital signs) requiring intravenous medication and/or fluids 8. Patient presents the following: CIWA greater than 12 Admission Criteria Met: Admission criteria met Admission ROS S - [facility] Chief Complaint: i need help to stop using heroin and alcohol Allergies/Adverse Reactions: Allergies Allergy/AdvReac Type Severity Reaction Status Date / Time shrimp Allergy Severe Hives Verified 08/30/18 08:51 NKDA Allergy Uncoded 08/30/18 08:51 History of Present Illness: this 53 years old male with heroin and alcohol dependence,seeking detox, withdrawal symptom,last detox 08/03/18 to 07/29/18, rehab 08/01/18 to 08/03/18 not completed nicotine dependence weight loss multiple admissions in the past but keep relapsing no significant period of sobriety Exam Limitations: No Limitations - Ebola screening Have you traveled outside of the country in the last 21 days: No Have you had contact with anyone from an Ebola affected area: No Do you have a fever: No - Review of Systems Constitutional: Chills, Loss of Appetite, Malaise, Night Sweats, Changes in sleep, Weakness, Unintentional Wgt. Loss EENT: reports: Tearing, Nose Congestion Respiratory: reports: No Symptoms reported Cardiac: reports: No Symptoms Reported GI: reports: Nausea, Poor Appetite, Abdominal cramping : reports: No Symptoms Reported Musculoskeletal: reports: Back Pain, Muscle Pain Integumentary: reports: Dryness Neuro: reports: Tremors Endocrine: reports: No Symptoms Reported Hematology: reports: No Symptoms Reported Psychiatric: reports: No Sypmtoms Reported, Judgement Intact, Mood/Affect Appropiate, Orientated x3, Agitated Other Systems: Reviewed and Negative Patient History - Patient Medical History Hx Anemia: No Hx Asthma: No Hx Chronic Obstructive Pulmonary Disease (COPD): No Hx Cancer: No Hx Cardiac Disorders: No Hx Congestive Heart Failure: No Hx Hypertension: No Hx Hypercholesterolemia: No Hx Pacemaker: No HX Cerebrovascular Accident: No Hx Seizures: No Hx Dementia: No Hx Diabetes: No Hx Gastrointestinal Disorders: No Hx Liver Disease: No Hx Genitourinary Disorders: No Hx Sexually Transmitted Disorders: No Hx Renal Disease (ESRD): No Hx Thyroid Disease: No Hx Human Immunodeficiency Virus (HIV): No (last 08/09 negative) Hx Hepatitis C: No Hx Depression: No Hx Suicide Attempt: No Hx Bipolar Disorder: No Hx Schizophrenia: No Other Medical History: no suicidal,no homicidal - Patient Surgical History Past Surgical History: No Hx Neurologic Surgery: No Hx Cataract Extraction: No Hx Cardiac Surgery: No Hx Lung Surgery: No Hx Breast Surgery: No Hx Breast Biopsy: No Hx Abdominal Surgery: No Hx Appendectomy: No Hx Cholecystectomy: No Hx Genitourinary Surgery: No Hx Section: No Hx Orthopedic Surgery: No Anesthesia Reaction: No - PPD History Previous Implant?: Yes Documented Results: Negative w/proof Implanted On Prior R Admission?: No Date: 06/14/18 Results: 0 mm PPD to be Administered?: No - Smoking Cessation Smoking history: Current every day smoker Have you smoked in the past 12 months: Yes Aproximately how many cigarettes per day: 4 Cigars Per Day: 0 Hx Chewing Tobacco Use: No Initiated information on smoking cessation: Yes 'Breaking Loose' booklet given: 08/30/18 - Substance & Tx. History Hx Alcohol Use: Yes Hx Substance Use: Yes Substance Use Type: Alcohol, Heroin Hx Substance Use Treatment: Yes ([facility] 07/24/18 to 07/29/18 detox,rehab 08/01/18 to 08/03/18 not completed) - Substances Abused Heroin Route: Inhalation Frequency: Daily Amount used: 4 bags Age of first use: 17 Date of Last Use: 08/29/18 Alcohol Route: Oral Frequency: Daily Amount used: 3pints of vodka Age of first use: 20 Date of Last Use: 08/30/18 Family Disease History - Family Disease History Family Disease History: Other: Father (ALCOHOLISM- CIRRHOSIS OF LIVER) Admission Physical Exam [facility] - Physical General Appearance: Yes: Moderate Distress, Tremorous, Irritable, Sweating, Anxious HEENTM: Yes: Normal ENT Inspection, Normocephalic, BRUCE, Pharynx Normal Respiratory: Yes: Within Normal Limits, Lungs Clear, Normal Breath Sounds Neck: Yes: Within Normal Limits, Supple, Trachea in good position Breast: Yes: Within Normal Limits Cardiology: Yes: Within Normal Limits, Regular Rhythm, Regular Rate, S1, S2 Abdominal: Yes: Within Normal Limits, Normal Bowel Sounds, Non Tender, Soft Genitourinary: Yes: Within Normal Limits Back: Yes: Within Normal Limits, Normal Inspection, Muscle Spasm Musculoskeletal: Yes: full range of Motion, Back pain, Joint Stiffness, Muscle Pain Extremities: Yes: Within Normal Limits, Normal Range of Motion, Tremors Neurological: Yes: safety attendant II-XII NML intact, Alert, Motor Strength 5/5 Integumentary: Yes: Dry Lymphatic: Yes: Within Normal Limits - Diagnostic (1) Opioid dependence with withdrawal Current Visit: No Status: Acute (2) Alcohol dependence with uncomplicated withdrawal Current Visit: No Status: Acute (3) Nicotine dependence Current Visit: No Status: Chronic Qualifiers: Nicotine product type: cigarettes Substance use status: uncomplicated Qualified Code(s): F17.210 - Nicotine dependence, cigarettes, uncomplicated (4) Dehydration Current Visit: Yes Status: Acute Cleared for Admission [facility] - Detox or Rehab [facility] Level of Care: Medically Managed Detox Regimen/Protocol: Methadone/Librium S Breath Alcohol Content Breath Alcohol Content: 0
[2018-08-30 08:58] VITALS: BMI 23.7
[2018-08-30] MEDS ORDERED: ACETAMINOPHEN 325 MG TABLET (FP) PO PRN (09:10)
[2018-08-30] MEDS ORDERED: MAG HYDROX/AL HYDROX/SIMETH 30 ML UNIT-DOSE CUP PO PRN (09:10)
[2018-08-30] MEDS ORDERED: LOPERAMIDE HCL 2 MG CAPSULE PO PRN (09:10)
[2018-08-30] MEDS ORDERED: chlordiazePOXIDE HCL 25 MG CAPSULE PO PRN (09:10)
[2018-08-30] MEDS ORDERED: MAGNESIUM HYDROX 2400MG/30ML ORAL SUSPENSION 30 ML CUP PO PRN (09:10)
[2018-08-30] MEDS ORDERED: MAGNESIUM CITRATE 300 ML BOTTLE PO PRN (09:10)
[2018-08-30] MEDS ORDERED: MENTHOL/PHENOL 1 EACH UD MM PRN (09:10)
[2018-08-30] MEDS ORDERED: hydrOXYzine PAMOATE 25 MG CAPSULE (FP) PO PRN (09:10)
[2018-08-30] MEDS ORDERED: IBUPROFEN 400 MG TABLET (FP) PO PRN (09:10)
[2018-08-30] MEDS ORDERED: P-EPHED 60MG/TRIPROLIDI 2.5MG TABLET PO PRN (09:10)
[2018-08-30] MEDS ORDERED: guaiFENesin/D-METHORPHAN HB 10 ML UNIT-DOSE CUPS PO PRN (09:10)
[2018-08-30] MEDS ORDERED: METHADONE HCL 10 MG TABLET (FOR DETOX USE ONLY) PO ONE ×2 (10:00→23:00)
[2018-08-30] MEDS: chlordiazePOXIDE HCL 25 MG CAPSULE PO SCH ×3 (11:30→22:18)
[2018-08-30] MEDS: PRENATAL VITAMINS W/ FOLIC ACID TABLET (FP) PO SCH (11:30)
--- NOTE | 2018-08-30 13:15 | EKG ---
Test Reason : Blood Pressure : / mmHG Vent. Rate : 080 BPM Atrial Rate : 080 BPM P-R Int : 148 ms QRS Dur : 086 ms QT Int : 390 ms P-R-T Axes : 066 041 031 degrees QTc Int : 449 ms NORMAL SINUS RHYTHM NORMAL ECG WHEN COMPARED WITH ECG OF 24-JUL-2018 11:25, NO SIGNIFICANT CHANGE WAS FOUND Confirmed by LEILANI STUBBS MD ([id number]) on 08/30/2018 1:15:05 PM Referred By: Confirmed By:LEILANI STUBBS MD
[2018-08-30 18:29] LABS: URINE APPEARANCE CLEAR; URINE BILIRUBIN NEGATIVE (<2.0 mg/dL); URINE COLOR YELLOW; URINE GLUCOSE (UA) NEGATIVE (NEGATIVE); URINE KETONE NEGATIVE (NEGATIVE); URINE LEUK ESTERASE NEGATIVE (NEGATIVE); URINE NITRITE NEGATIVE (NEGATIVE); URINE PROTEIN NEGATIVE (NEGATIVE); URINE UROBILINOGEN NEGATIVE mg/dL (0.2-1.0)
[2018-08-30] MEDS ORDERED: MELATONIN 5 MG TABLETS PO PRN (22:00)
[2018-08-30] MEDS: THIAMINE HCL 100 MG TABLET (FP) PO SCH (22:18)
[2018-08-31] MEDS: chlordiazePOXIDE HCL 25 MG CAPSULE PO SCH ×4 (05:53→22:25)
[2018-08-31] MEDS ORDERED: METHADONE HCL 10 MG TABLET (FOR DETOX USE ONLY) PO SCH (10:00)
[2018-08-31 10:08] LABS: HEMATOCRIT 37.3 % (35.4-49); HEMOGLOBIN 12.4 GM/dL (11.7-16.9); MCH 29.6 pg (25.7-33.7); MCHC 33.2 g/dl (32.0-35.9); MEAN CELL VOLUME 88.9 fl (80-96); MEAN PLT VOLUME 8.1 fl (7.5-11.1); PLATELET COUNT 223 K/MM3 (134-434); RDW 12.6 % (11.9-15.9); WHITE BLOOD COUNT 7.3 K/mm3 (4.0-10.0)
[2018-08-31] MEDS: PRENATAL VITAMINS W/ FOLIC ACID TABLET (FP) PO SCH (10:48)
[2018-08-31 11:09] LABS: ALBUMIN 3.3 g/dl (3.4-5.0); ALK PHOS 67 U/L (45-117); ANION GAP 10 MMOL/L (8-16); BILIRUBIN,TOTAL 0.3 mg/dL (0.2-1); BLOOD UREA NITROGEN 19 mg/dL (7-18); CALCIUM 8.7 mg/dL (8.5-10.1); CHLORIDE 106 mmol/L (98-107); CO2 26 mmol/L (21-32); CREATININE 1.1 mg/dL (0.55-1.3); GLUCOSE,RANDOM 109 mg/dL (74-106); POTASSIUM 3.9 mmol/L (3.5-5.1); SGOT/AST 17 U/L (15-37); SGPT/ALT 23 U/L (13-61); SODIUM 142 mmol/L (136-145); TOT PROT 6.3 g/dl (6.4-8.2)
--- NOTE | 2018-08-31 15:56 | PN ---
[facility] CIWA - CIWA Score Nausea/Vomitin-Mild Nausea/No Vomiting Muscle Tremors: 4-Moderate,w/Arms Extend Anxiety: 4-Mod. Anxious/Guarded Agitation: 3 Paroxysmal Sweats: 3 Orientation: 0-Oriented Tacttile Disturbances: 1-Very Mild Itch/Numbness Auditory Disturbances: 0-None Visual Disturbances: 0-None Headache: 0-None Present CIWA-Ar Total Score: 16 [facility] COWS - Scale Resting Pulse: 0= [place] 80 or Below Sweatin= Chills/Flushing Restless Observation: 3= Extraneous Movement Pupil Size: 1= Pupils >than Normal Bone or Joint Aches: 2= Severe Diffuse Aches Runny Nose/ Eye Tearin= Runny Nose/Eyes GI Upset > 30mins: 3= Vomiting/Diarrhea Tremor Observation of Outstretched Hands: 2= Slight Tremor Visible Yawning Observation: 0= None Anxiety or Irritability: 2=Irritable/Anxious Goose Flesh Skin: 0=Smooth Skin COWS Score: 16 S Progress Note (SOAP) Subjective: Sweating, interrupted sleep, chills Objective: 08/31/18 15:55 Last Vital Signs Temp Pulse Resp BP Pulse Ox 97.8 F 77 20 119/68 08/31/18 15:44 08/31/18 15:44 08/31/18 15:44 08/31/18 15:44 Laboratory Tests 08/30/18 08/31/18 08/31/18 15:48 06:00 06:00 WBC 7.3 RBC 4.20 Hgb 12.4 Hct 37.3 MCV 88.9 MCH 29.6 MCHC 33.2 RDW 12.6 Plt Count 223 MPV 8.1 Sodium 142 Potassium 3.9 Chloride 106 Carbon Dioxide 26 Anion Gap 10 BUN 19 H Creatinine 1.1 Creat Clearance w eGFR > 60 Random Glucose 109 H Calcium 8.7 Total Bilirubin 0.3 AST 17 ALT 23 Alkaline Phosphatase 67 Total Protein 6.3 L Albumin 3.3 L Urine Color Yellow Urine Appearance Clear Urine pH 5.0 Ur Specific [place] 1.016 Urine Protein Negative Urine Glucose (UA) Negative Urine Ketones Negative Urine Blood Negative Urine Nitrite Negative Urine Bilirubin Negative Urine Urobilinogen Negative Ur Leukocyte Esterase Negative RPR Titer 08/31/18 06:00 WBC RBC Hgb Hct MCV MCH MCHC RDW Plt Count MPV Sodium Potassium Chloride Carbon Dioxide Anion Gap BUN Creatinine Creat Clearance w eGFR Random Glucose Calcium Total Bilirubin AST ALT Alkaline Phosphatase Total Protein Albumin Urine Color Urine Appearance Urine pH Ur Specific [place] Urine Protein Urine Glucose (UA) Urine Ketones Urine Blood Urine Nitrite Urine Bilirubin Urine Urobilinogen Ur Leukocyte Esterase RPR Titer Nonreactive Labs reviewed Assessment: 08/31/18 15:56 Withdrawal sxs Plan: Continue detox Encouraged PO water intake
[2018-08-31] MEDS: THIAMINE HCL 100 MG TABLET (FP) PO SCH (22:25)
[2018-09-01] MEDS: chlordiazePOXIDE HCL 25 MG CAPSULE PO SCH (05:27)
--- NOTE | 2018-09-01 11:42 | PN ---
S CIWA - CIWA Score Nausea/Vomitin-No Nausea/No Vomiting Muscle Tremors: 2 Anxiety: 2 Agitation: 3 Paroxysmal Sweats: 2 Orientation: 0-Oriented Tacttile Disturbances: 1-Very Mild Itch/Numbness Auditory Disturbances: 0-None Visual Disturbances: 0-None Headache: 2-Mild CIWA-Ar Total Score: 12 BHS COWS - Scale Resting Pulse: 0= [place] 80 or Below Sweatin=Flushed/Facial Moisture Restless Observation: 1= Difficult to Sit Still Pupil Size: 1= Pupils >than Normal Bone or Joint Aches: 1= Mild Discomfort Runny Nose/ Eye Tearin= Runny Nose/Eyes GI Upset > 30mins: 0= None Tremor Observation of Outstretched Hands: 2= Slight Tremor Visible Yawning Observation: 2= >3x During Session Anxiety or Irritability: 2=Irritable/Anxious Goose Flesh Skin: 0=Smooth Skin COWS Score: 13 [facility] Progress Note (SOAP) Subjective: chills, sweats, interrupted sleep, anxious Objective: 09/01/18 11:44 Vital Signs Temperature 97.2 F L 09/01/18 06:13 Pulse Rate 80 09/01/18 06:13 Respiratory Rate 18 09/01/18 06:13 Blood Pressure 128/70 09/01/18 06:13 O2 Sat by Pulse Oximetry (%) Laboratory Last Values WBC 7.3 K/mm3 (4.0-10.0) 08/31/18 06:00 RBC 4.20 M/mm3 (4.00-5.60) 08/31/18 06:00 Hgb 12.4 GM/dL (11.7-16.9) 08/31/18 06:00 Hct 37.3 % (35.4-49) 08/31/18 06:00 MCV 88.9 fl (80-96) 08/31/18 06:00 MCH 29.6 pg (25.7-33.7) 08/31/18 06:00 MCHC 33.2 g/dl (32.0-35.9) 08/31/18 06:00 RDW 12.6 % (11.9-15.9) 08/31/18 06:00 Plt Count 223 K/MM3 (134-434) 08/31/18 06:00 MPV 8.1 fl (7.5-11.1) 08/31/18 06:00 Sodium 142 mmol/L (136-145) 08/31/18 06:00 Potassium 3.9 mmol/L (3.5-5.1) 08/31/18 06:00 Chloride 106 mmol/L (98-107) 08/31/18 06:00 Carbon Dioxide 26 mmol/L (21-32) 08/31/18 06:00 Anion Gap 10 MMOL/L (8-16) 08/31/18 06:00 BUN 19 mg/dL (7-18) H 08/31/18 06:00 Creatinine 1.1 mg/dL (0.55-1.3) 08/31/18 06:00 Creat Clearance w eGFR > 60 (>60) 08/31/18 06:00 Random Glucose 109 mg/dL (74-106) H 08/31/18 06:00 Calcium 8.7 mg/dL (8.5-10.1) 08/31/18 06:00 Total Bilirubin 0.3 mg/dL (0.2-1) 08/31/18 06:00 AST 17 U/L (15-37) 08/31/18 06:00 ALT 23 U/L (13-61) 08/31/18 06:00 Alkaline Phosphatase 67 U/L (45-117) 08/31/18 06:00 Total Protein 6.3 g/dl (6.4-8.2) L 08/31/18 06:00 Albumin 3.3 g/dl (3.4-5.0) L 08/31/18 06:00 Urine Color Yellow 08/30/18 15:48 Urine Appearance Clear 08/30/18 15:48 Urine pH 5.0 (5.0-8.0) 08/30/18 15:48 Ur Specific [place] 1.016 (1.010-1.035) 08/30/18 15:48 Urine Protein Negative (NEGATIVE) 08/30/18 15:48 Urine Glucose (UA) Negative (NEGATIVE) 08/30/18 15:48 Urine Ketones Negative (NEGATIVE) 08/30/18 15:48 Urine Blood Negative (NEGATIVE) 08/30/18 15:48 Urine Nitrite Negative (NEGATIVE) 08/30/18 15:48 Urine Bilirubin Negative (<2.0 mg/dL) 08/30/18 15:48 Urine Urobilinogen Negative mg/dL (0.2-1.0) 08/30/18 15:48 Ur Leukocyte Esterase Negative (NEGATIVE) 08/30/18 15:48 RPR Titer Nonreactive (NONREACTIVE) 08/31/18 06:00 labs reviewed AOx3 no distress no adventitious breath sounds full ROM, ambulatory Assessment: 09/01/18 11:46 withdrawal sx Plan: continue detox continue to monitor
[2018-09-01] MEDS: PRENATAL VITAMINS W/ FOLIC ACID TABLET (FP) PO SCH (12:34)
[2018-09-01] MEDS: METHADONE HCL 5 MG TABLET (FOR DETOX USE ONLY) PO SCH (12:34)
[2018-09-01] MEDS: chlordiazePOXIDE 5 MG CAPSULE PO SCH ×3 (12:34→22:12)
[2018-09-01] MEDS: THIAMINE HCL 100 MG TABLET (FP) PO SCH (22:12)
[2018-09-02] MEDS: chlordiazePOXIDE 5 MG CAPSULE PO SCH (05:32)
[2018-09-02] MEDS: PRENATAL VITAMINS W/ FOLIC ACID TABLET (FP) PO SCH (10:38)
[2018-09-02] MEDS: METHADONE HCL 5 MG TABLET (FOR DETOX USE ONLY) PO SCH (10:39)
[2018-09-02] MEDS: chlordiazePOXIDE HCL 10 MG CAPSULE PO SCH ×2 (10:46→17:15)
--- NOTE | 2018-09-02 15:01 | PN ---
[facility] Progress Note (SOAP) Subjective: Chills, runny nose Objective: 09/02/18 15:01 Last Vital Signs Temp Pulse Resp BP Pulse Ox 96.5 F L 97 H 20 127/83 09/02/18 14:49 09/02/18 14:49 09/02/18 14:49 09/02/18 14:49 Laboratory Tests 08/30/18 08/31/18 08/31/18 15:48 06:00 06:00 WBC 7.3 RBC 4.20 Hgb 12.4 Hct 37.3 MCV 88.9 MCH 29.6 MCHC 33.2 RDW 12.6 Plt Count 223 MPV 8.1 Sodium 142 Potassium 3.9 Chloride 106 Carbon Dioxide 26 Anion Gap 10 BUN 19 H Creatinine 1.1 Creat Clearance w eGFR > 60 Random Glucose 109 H Calcium 8.7 Total Bilirubin 0.3 AST 17 ALT 23 Alkaline Phosphatase 67 Total Protein 6.3 L Albumin 3.3 L Urine Color Yellow Urine Appearance Clear Urine pH 5.0 Ur Specific [place] 1.016 Urine Protein Negative Urine Glucose (UA) Negative Urine Ketones Negative Urine Blood Negative Urine Nitrite Negative Urine Bilirubin Negative Urine Urobilinogen Negative Ur Leukocyte Esterase Negative RPR Titer 08/31/18 06:00 WBC RBC Hgb Hct MCV MCH MCHC RDW Plt Count MPV Sodium Potassium Chloride Carbon Dioxide Anion Gap BUN Creatinine Creat Clearance w eGFR Random Glucose Calcium Total Bilirubin AST ALT Alkaline Phosphatase Total Protein Albumin Urine Color Urine Appearance Urine pH Ur Specific [place] Urine Protein Urine Glucose (UA) Urine Ketones Urine Blood Urine Nitrite Urine Bilirubin Urine Urobilinogen Ur Leukocyte Esterase RPR Titer Nonreactive Labs reviewed Assessment: 09/02/18 15:01 Withdrawal sxs Plan: Continue detox Encouraged PO water intake
[2018-09-02 18:11] VITALS: BP 116/61; PULSE 77; TEMP 97.7
--- NOTE | 2018-09-02 18:18 | PN ---
[facility] Progress Note Note: patient did not want to complete treatment,stated he has to go to work ,all attempts to convince patient to stay by counselor,nursing staff with no avail,patient did not want to wait,sign release ama,advise to go to er if emergency medical problem
--- NOTE | 2018-09-02 18:22 | DS ---
[facility] Detox Discharge Summary Admission Date: 08/30/18 Discharge Date: 09/02/18 - History Present History: Alcohol Dependence, Opioid Dependence Additional Comments: patient disned releas ama Pertinent Past History: nicotine dependence dehydration - Physical Exam Results Vital Signs: Vital Signs Temperature 97.7 F 09/02/18 18:00 Pulse Rate 77 09/02/18 18:00 Respiratory Rate 18 09/02/18 18:00 Blood Pressure 116/61 09/02/18 18:00 O2 Sat by Pulse Oximetry (%) Pertinent Admission Physical Exam Findings: withdrawal sign and symptom Vital Signs Temperature 97.7 F 09/02/18 18:00 Pulse Rate 77 09/02/18 18:00 Respiratory Rate 18 09/02/18 18:00 Blood Pressure 116/61 09/02/18 18:00 O2 Sat by Pulse Oximetry (%) - Medication Discharge Medications: Ambulatory Orders NK [No Known Home Medication] 02/05/18 - Diagnosis (1) Opioid dependence with withdrawal Current Visit: Yes Status: Acute (2) Alcohol dependence with uncomplicated withdrawal Current Visit: Yes Status: Acute (3) Nicotine dependence Current Visit: Yes Status: Chronic Qualifiers: Nicotine product type: cigarettes Substance use status: uncomplicated Qualified Code(s): F17.210 - Nicotine dependence, cigarettes, uncomplicated (4) Dehydration Current Visit: Yes Status: Acute - AMA Did Patient Leave Against Medical Advice: Yes
[2018-09-03] MEDS ORDERED: METHADONE HCL 10 MG TABLET (FOR DETOX USE ONLY) PO SCH (10:00)
[2018-09-04] MEDS ORDERED: METHADONE HCL 5 MG TABLET (FOR DETOX USE ONLY) PO SCH (06:00)
== END 2018-09-02 18:40 | disposition left against medical advice (07) | DRG 770 ==
LOC: YASAS 08:27 → Y3N 09:41
PROC: HZ2ZZZZ Detoxification Services for Substance Abuse Treatment (ICD-10-PCS; principal; 2018-08-30)
DX: F11.23 Opioid dependence with withdrawal (principal); F10.230 Alcohol dependence with withdrawal, uncomplicated; F14.10 Cocaine abuse, uncomplicated; F17.210 Nicotine dependence, cigarettes, uncomplicated; E86.0 Dehydration
CPT/HCPCS: 36415; 80053; 81003; 85027; 86593; 93005; 93010

== ENCOUNTER 2018-10-04 09:16 | Inpatient (IN) | payer OTHER ==
[2018-10-04 11:36] VITALS: BMI 23.7
--- NOTE | 2018-10-04 13:35 | HP ---
COWS - Scale Resting Pulse: 0= [place] 80 or Below Sweatin= Chills/Flushing Restless Observation: 3= Extraneous Movement Pupil Size: 1= Pupils >than Normal Bone or Joint Aches: 2= Severe Diffuse Aches Runny Nose/ Eye Tearin= Runny Nose/Eyes GI Upset > 30mins: 2= Nausea/Diarrhea Tremor Observation: 2= Slight Tremor Visible Yawning Observation: 2= >3x During Session Anxiety or Irritability: 2=Irritable/Anxious Goose Flesh Skin: 0=Smooth Skin COWS Score: 17 CIWA Score Nausea/Vomitin Muscle Tremors: 2 Anxiety: 2 Agitation: 2 Paroxysmal Sweats: 1-Minimal Palms Moist Orientation: 0-Oriented Tacttile Disturbances: 1-Very Mild Itch/Numbness Auditory Disturbances: 1-Very Mild Visual Disturbances: 0-None Headache: 2-Mild CIWA-Ar Total Score: 13 - Admission Criteria OASAS Guidelines: Admission for Medically Managed Detox: Requires at least one of the followin. CIWA greater than 12 2. Seizures within the past 24 hours 3. Delirium tremens within the past 24 hours 4. Hallucinations within the past 24 hours 5. Acute intervention needed for co occurring medical disorder 6. Acute intervention needed for co occurring psychiatric disorder 7. Severe withdrawal that cannot be handled at a lower level of care (continued vomiting, continued diarrhea, abnormal vital signs) requiring intravenous medication and/or fluids 8. Patient presents the following: CIWA greater than 12 Admission Criteria Met: Admission criteria met Admission ROS [facility] Chief Complaint: i need help to stop using heroin,alcohol,cocaine Allergies/Adverse Reactions: Allergies Allergy/AdvReac Type Severity Reaction Status Date / Time shrimp Allergy Severe Hives Verified 10/04/18 12:00 No Known Drug Allergies Allergy Unknown Verified 10/04/18 13:55 NKDA Allergy Uncoded 10/04/18 12:00 History of Present Illness: this 53 years old male with heroin,alcohol and cocaine dependence seeking detox, withdrawal symptom,last detox [facility] 08/30/18 to 09/02/18 not completed extensive history of heroin,alcohol and cocaine dependence but keep relapsing nicotine dependence weight loss no significant period of sobriety plan for rehab after detox Exam Limitations: No Limitations - Ebola screening Have you traveled outside of the country in the last 21 days: No Have you had contact with anyone from an Ebola affected area: No Have you been sick,other than usual withdrawal symptoms: No - Review of Systems Constitutional: Chills, Loss of Appetite, Malaise, Night Sweats, Changes in sleep, Weakness, Unintentional Wgt. Loss EENT: reports: Tearing, Nose Congestion Respiratory: reports: No Symptoms reported Cardiac: reports: No Symptoms Reported GI: reports: Diarrhea, Nausea, Vomiting, Abdominal cramping : reports: No Symptoms Reported Musculoskeletal: reports: Back Pain, Joint Pain, Muscle Pain, Joint Stiffness Integumentary: reports: Dryness Neuro: reports: Headache, Tremors Endocrine: reports: No Symptoms Reported Hematology: reports: No Symptoms Reported Psychiatric: reports: No Sypmtoms Reported, Judgement Intact, Mood/Affect Appropiate, Orientated x3 Other Systems: Reviewed and Negative Patient History - Patient Medical History Hx Anemia: No Hx Asthma: No Hx Chronic Obstructive Pulmonary Disease (COPD): No Hx Cancer: No Hx Cardiac Disorders: No Hx Congestive Heart Failure: No Hx Hypertension: No Hx Hypercholesterolemia: No Hx Pacemaker: No HX Cerebrovascular Accident: No Hx Seizures: No Hx Dementia: No Hx Diabetes: No Hx Gastrointestinal Disorders: No Hx Liver Disease: No Hx Genitourinary Disorders: No Hx Sexually Transmitted Disorders: No Hx Renal Disease (ESRD): No Hx Thyroid Disease: No Hx Human Immunodeficiency Virus (HIV): No (last 08/09 negative) Hx Hepatitis C: No Hx Depression: No Hx Suicide Attempt: No Hx Bipolar Disorder: No Hx Schizophrenia: No Other Medical History: no suicidal,no homicidal - Patient Surgical History Past Surgical History: No Hx Neurologic Surgery: No Hx Cataract Extraction: No Hx Cardiac Surgery: No Hx Lung Surgery: No Hx Breast Surgery: No Hx Breast Biopsy: No Hx Abdominal Surgery: No Hx Appendectomy: No Hx Cholecystectomy: No Hx Genitourinary Surgery: No Hx Section: No Hx Orthopedic Surgery: No Anesthesia Reaction: No - PPD History Previous Implant?: Yes Documented Results: Negative w/proof Implanted On Prior [facility] Admission?: Yes Date: 06/14/18 Results: 0 mm PPD to be Administered?: No - Smoking Cessation Smoking history: Current every day smoker Have you smoked in the past 12 months: Yes Aproximately how many cigarettes per day: 20 Cigars Per Day: 0 Hx Chewing Tobacco Use: No Initiated information on smoking cessation: Yes 'Breaking Loose' booklet given: 10/04/18 - Substance & Tx. History Hx Alcohol Use: Yes Hx Substance Use: Yes Substance Use Type: Alcohol, Cocaine, Heroin Hx Substance Use Treatment: Yes ([facility] 08/30/18 to 09/02/18 not completed) - Substances Abused Heroin Route: Inhalation Frequency: Daily Amount used: 5 bags Age of first use: 17 Date of Last Use: 10/03/18 Cocaine Route: Inhalation Frequency: Daily Amount used: $50 Age of first use: 17 Date of Last Use: 10/03/18 Alcohol-beer Route: Oral Frequency: Daily Amount used: 2-6 pks. Age of first use: 17 Date of Last Use: 10/03/18 Family Disease History - Family Disease History Family Disease History: Other: Father (ALCOHOLISM- CIRRHOSIS OF LIVER) Admission Physical Exam [facility] - Vital Signs Vital Signs: Vital Signs - 24 hr 10/04/18 11:15 Temperature 98 F Pulse Rate 80 Respiratory 20 Rate Blood Pressure 124/68 - Physical General Appearance: Yes: Moderate Distress, Tremorous, Irritable, Sweating, Anxious HEENTM: Yes: Normal ENT Inspection, BRUCE, Pharynx Normal Respiratory: Yes: Lungs Clear, Normal Breath Sounds, No Respiratory Distress Neck: Yes: Within Normal Limits, Supple, Trachea in good position Breast: Yes: Within Normal Limits Cardiology: Yes: Within Normal Limits, Regular Rhythm, Regular Rate, S1, S2 Abdominal: Yes: Within Normal Limits, Normal Bowel Sounds, Non Tender, Flat, Soft Genitourinary: Yes: Within Normal Limits Back: Yes: Muscle Spasm Musculoskeletal: Yes: Back pain, Joint Stiffness, Muscle Pain Extremities: Yes: Within Normal Limits, Normal Range of Motion, Tremors Neurological: Yes: Within Normal Limits, director credit risk II-XII NML intact, Fully Oriented, Alert, Motor Strength 5/5 Integumentary: Yes: Dry Lymphatic: Yes: Within Normal Limits - Diagnostic (1) Opioid dependence with withdrawal Current Visit: Yes Status: Acute (2) Alcohol dependence with uncomplicated withdrawal Current Visit: Yes Status: Acute (3) Dehydration Current Visit: No Status: Acute (4) Syncope Current Visit: No Status: Acute (5) Cocaine dependence Current Visit: Yes Status: Chronic Cleared for Admission [facility] - Detox or Rehab [facility] Level of Care: Medically Managed Detox Regimen/Protocol: Methadone/Librium [facility] Breath Alcohol Content Breath Alcohol Content: 0 Urine Drug Screen - Results Drug Screen Negative: No Urine Drug Screen Results: ANNE-MARIE-Cocaine, OPI-Opiates, BZO-Benzodiazepines, BUP- Suboxone
[2018-10-04] MEDS ORDERED: chlordiazePOXIDE HCL 25 MG CAPSULE PO PRN (13:45)
[2018-10-04] MEDS ORDERED: MAGNESIUM CITRATE 300 ML BOTTLE PO PRN (13:46)
[2018-10-04] MEDS ORDERED: guaiFENesin/D-METHORPHAN HB 10 ML UNIT-DOSE CUPS PO PRN (13:46)
[2018-10-04] MEDS ORDERED: LOPERAMIDE HCL 2 MG CAPSULE PO PRN (13:46)
[2018-10-04] MEDS ORDERED: hydrOXYzine PAMOATE 50 MG CAPSULE (FP) PO PRN (13:46)
[2018-10-04] MEDS ORDERED: P-EPHED 60MG/TRIPROLIDI 2.5MG TABLET PO PRN (13:46)
[2018-10-04] MEDS ORDERED: NICOTINE POLACRILEX 2 MG GUM BUC PRN (13:46)
[2018-10-04] MEDS ORDERED: MENTHOL/PHENOL 1 EACH UD MM PRN (13:46)
[2018-10-04] MEDS ORDERED: ACETAMINOPHEN 325 MG TABLET (FP) PO PRN (13:46)
[2018-10-04] MEDS ORDERED: MAG HYDROX/AL HYDROX/SIMETH 30 ML UNIT-DOSE CUP PO PRN (13:46)
[2018-10-04] MEDS ORDERED: IBUPROFEN 400 MG TABLET (FP) PO PRN (13:46)
[2018-10-04] MEDS ORDERED: MAGNESIUM HYDROX 2400MG/30ML ORAL SUSPENSION 30 ML CUP PO PRN (13:46)
[2018-10-04] MEDS ORDERED: METHADONE HCL 10 MG TABLET (FOR DETOX USE ONLY) PO ONE ×2 (14:00→23:00)
[2018-10-04] MEDS: chlordiazePOXIDE HCL 25 MG CAPSULE PO SCH ×2 (17:51→22:09)
[2018-10-04] MEDS: THIAMINE HCL 100 MG TABLET (FP) PO SCH (22:10)
[2018-10-05] MEDS: chlordiazePOXIDE HCL 25 MG CAPSULE PO SCH ×4 (07:34→22:24)
[2018-10-05] MEDS ORDERED: METHADONE HCL 10 MG TABLET (FOR DETOX USE ONLY) PO SCH (10:00)
[2018-10-05 10:32] LABS: HEMATOCRIT 37.2 % (35.4-49); MCH 28.9 pg (25.7-33.7); MCHC 32.2 g/dl (32.0-35.9); MEAN CELL VOLUME 89.7 fl (80-96); MEAN PLT VOLUME 8.1 fl (7.5-11.1); PLATELET COUNT 234 K/MM3 (134-434); RBC 4.15 M/mm3 (4.00-5.60); RDW 12.9 % (11.9-15.9); WHITE BLOOD COUNT 5.7 K/mm3 (4.0-10.0)
[2018-10-05] MEDS: NICOTINE 21 MG/24 HOURS TOPICAL PATCH TD SCH (10:49)
[2018-10-05] MEDS: PRENATAL VITAMINS W/ FOLIC ACID TABLET (FP) PO SCH (10:49)
[2018-10-05 10:58] LABS: ALBUMIN 3.2 g/dl (3.4-5.0); ALK PHOS 64 U/L (45-117); ANION GAP 5 MMOL/L (8-16); BILIRUBIN,TOTAL 0.2 mg/dL (0.2-1); BLOOD UREA NITROGEN 18 mg/dL (7-18); CALCIUM 8.3 mg/dL (8.5-10.1); CHLORIDE 109 mmol/L (98-107); CO2 28 mmol/L (21-32); CREATININE 1.2 mg/dL (0.55-1.3); GLUCOSE,RANDOM 84 mg/dL (74-106); POTASSIUM 4.4 mmol/L (3.5-5.1); SGOT/AST 15 U/L (15-37); SGPT/ALT 22 U/L (13-61); SODIUM 143 mmol/L (136-145); TOT PROT 6.1 g/dl (6.4-8.2)
--- NOTE | 2018-10-05 13:01 | PN ---
S CIWA - CIWA Score Nausea/Vomitin-No Nausea/No Vomiting Muscle Tremors: 3 Anxiety: 3 Agitation: 2 Paroxysmal Sweats: No Perspiration Orientation: 0-Oriented Tacttile Disturbances: 0-None Auditory Disturbances: 0-None Visual Disturbances: 0-None Headache: 2-Mild CIWA-Ar Total Score: 10 [facility] COWS - Scale Resting Pulse: 0= [place] 80 or Below Sweatin= Chills/Flushing Restless Observation: 1= Difficult to Sit Still Pupil Size: 0= Normal to Room Light Bone or Joint Aches: 1= Mild Discomfort Runny Nose/ Eye Tearin= None GI Upset > 30mins: 0= None Tremor Observation of Outstretched Hands: 2= Slight Tremor Visible Yawning Observation: 1= 1-2x During Session Anxiety or Irritability: 2=Irritable/Anxious Goose Flesh Skin: 3=Piloerection COWS Score: 11 BHS Progress Note (SOAP) Subjective: PATIENT C/O SLEEP DISTURBANCE. +ANXIETY/IRRITABILITY, CHILLS AND SHAKES. Objective: Vital Signs Temperature 98 F 10/05/18 06:17 Pulse Rate 72 10/05/18 06:17 Respiratory Rate 18 10/05/18 06:17 Blood Pressure 144/86 10/05/18 06:17 O2 Sat by Pulse Oximetry (%) Laboratory Tests 10/05/18 10/05/18 05:45 05:45 WBC 5.7 RBC 4.15 Hgb 12.0 Hct 37.2 MCV 89.7 MCH 28.9 MCHC 32.2 RDW 12.9 Plt Count 234 MPV 8.1 Sodium 143 Potassium 4.4 Chloride 109 H Carbon Dioxide 28 Anion Gap 5 L BUN 18 Creatinine 1.2 Creat Clearance w eGFR > 60 Random Glucose 84 Calcium 8.3 L Total Bilirubin 0.2 AST 15 ALT 22 Alkaline Phosphatase 64 Total Protein 6.1 L Albumin 3.2 L PE: ALERT AND ORIENTED X 3 PATIENT SLEEPY AND IRRITABLE EXT FULL ROM, +SHAKES, AMB AD THUY SKIN + GOOSEFLESH Assessment: 10/05/18 13:01 WITHDRAWAL SX Plan: CONTINUE DETOX ENCOURAGE ORAL FLUIDS CONTINUE TO MONITOR CLINICALLY
[2018-10-05] MEDS: THIAMINE HCL 100 MG TABLET (FP) PO SCH (22:24)
[2018-10-06] MEDS: chlordiazePOXIDE HCL 25 MG CAPSULE PO SCH ×2 (05:21→10:50)
[2018-10-06] MEDS: METHADONE HCL 5 MG TABLET (FOR DETOX USE ONLY) PO SCH (10:50)
[2018-10-06] MEDS: PRENATAL VITAMINS W/ FOLIC ACID TABLET (FP) PO SCH (10:50)
[2018-10-06] MEDS: NICOTINE 21 MG/24 HOURS TOPICAL PATCH TD SCH (10:51)
--- NOTE | 2018-10-06 15:36 | PN ---
[facility] CIWA - CIWA Score Nausea/Vomitin Muscle Tremors: 2 Anxiety: 2 Agitation: 2 Paroxysmal Sweats: 2 Orientation: 0-Oriented Tacttile Disturbances: 1-Very Mild Itch/Numbness Auditory Disturbances: 0-None Visual Disturbances: 0-None Headache: 1-Very Mild CIWA-Ar Total Score: 12 S COWS - Scale Resting Pulse: 0= [place] 80 or Below Sweatin= Chills/Flushing Restless Observation: 1= Difficult to Sit Still Pupil Size: 0= Normal to Room Light Bone or Joint Aches: 1= Mild Discomfort Runny Nose/ Eye Tearin= Nasal Congestion GI Upset > 30mins: 1= Stomach Cramp Tremor Observation of Outstretched Hands: 2= Slight Tremor Visible Yawning Observation: 0= None Anxiety or Irritability: 2=Irritable/Anxious Goose Flesh Skin: 0=Smooth Skin COWS Score: 9 [facility] Progress Note (SOAP) Subjective: Sweats, tremors, interrupted sleep and generalized muscle aches Objective: 10/06/18 15:36 Vital Signs Temperature 96.9 F L 10/06/18 13:52 Pulse Rate 67 10/06/18 13:52 Respiratory Rate 18 10/06/18 13:52 Blood Pressure 114/66 10/06/18 13:52 O2 Sat by Pulse Oximetry (%) Laboratory Last Values WBC 5.7 K/mm3 (4.0-10.0) 10/05/18 05:45 RBC 4.15 M/mm3 (4.00-5.60) 10/05/18 05:45 Hgb 12.0 GM/dL (11.7-16.9) 10/05/18 05:45 Hct 37.2 % (35.4-49) 10/05/18 05:45 MCV 89.7 fl (80-96) 10/05/18 05:45 MCH 28.9 pg (25.7-33.7) 10/05/18 05:45 MCHC 32.2 g/dl (32.0-35.9) 10/05/18 05:45 RDW 12.9 % (11.9-15.9) 10/05/18 05:45 Plt Count 234 K/MM3 (134-434) 10/05/18 05:45 MPV 8.1 fl (7.5-11.1) 10/05/18 05:45 Sodium 143 mmol/L (136-145) 10/05/18 05:45 Potassium 4.4 mmol/L (3.5-5.1) 10/05/18 05:45 Chloride 109 mmol/L (98-107) H 10/05/18 05:45 Carbon Dioxide 28 mmol/L (21-32) 10/05/18 05:45 Anion Gap 5 MMOL/L (8-16) L 10/05/18 05:45 BUN 18 mg/dL (7-18) 10/05/18 05:45 Creatinine 1.2 mg/dL (0.55-1.3) 10/05/18 05:45 Creat Clearance w eGFR > 60 (>60) 10/05/18 05:45 Random Glucose 84 mg/dL (74-106) 10/05/18 05:45 Calcium 8.3 mg/dL (8.5-10.1) L 10/05/18 05:45 Total Bilirubin 0.2 mg/dL (0.2-1) 10/05/18 05:45 AST 15 U/L (15-37) 10/05/18 05:45 ALT 22 U/L (13-61) 10/05/18 05:45 Alkaline Phosphatase 64 U/L (45-117) 10/05/18 05:45 Total Protein 6.1 g/dl (6.4-8.2) L 10/05/18 05:45 Albumin 3.2 g/dl (3.4-5.0) L 10/05/18 05:45 RPR Titer Nonreactive (NONREACTIVE) 10/05/18 05:45 Labs noted Assessment: 10/06/18 15:37 Withdrawal sx Plan: Continue detox
[2018-10-06] MEDS: chlordiazePOXIDE 5 MG CAPSULE PO SCH ×2 (17:35→22:31)
[2018-10-06] MEDS: THIAMINE HCL 100 MG TABLET (FP) PO SCH (22:31)
[2018-10-06] MEDS: MELATONIN 5 MG TABLETS PO PRN (22:32)
[2018-10-07] MEDS: chlordiazePOXIDE 5 MG CAPSULE PO SCH ×2 (06:12→10:51)
[2018-10-07] MEDS: PRENATAL VITAMINS W/ FOLIC ACID TABLET (FP) PO SCH (10:51)
[2018-10-07] MEDS: METHADONE HCL 5 MG TABLET (FOR DETOX USE ONLY) PO SCH (10:51)
[2018-10-07] MEDS: NICOTINE 21 MG/24 HOURS TOPICAL PATCH TD SCH (10:52)
--- NOTE | 2018-10-07 16:36 | PN ---
BHS Progress Note (SOAP) Subjective: Anxious, interrupted sleep Objective: 10/07/18 16:34 Last Vital Signs Temp Pulse Resp BP Pulse Ox 96.7 F L 80 18 120/67 10/07/18 13:18 10/07/18 13:18 10/07/18 13:18 10/07/18 13:18 Laboratory Tests 10/05/18 10/05/18 10/05/18 05:45 05:45 05:45 WBC 5.7 RBC 4.15 Hgb 12.0 Hct 37.2 MCV 89.7 MCH 28.9 MCHC 32.2 RDW 12.9 Plt Count 234 MPV 8.1 Sodium 143 Potassium 4.4 Chloride 109 H Carbon Dioxide 28 Anion Gap 5 L BUN 18 Creatinine 1.2 Creat Clearance w eGFR > 60 Random Glucose 84 Calcium 8.3 L Total Bilirubin 0.2 AST 15 ALT 22 Alkaline Phosphatase 64 Total Protein 6.1 L Albumin 3.2 L RPR Titer Nonreactive Labs reviewed Assessment: 10/07/18 16:35 Withdrawal symptoms Plan: Continue detox Encouraged PO water intake
[2018-10-07] MEDS: chlordiazePOXIDE HCL 10 MG CAPSULE PO SCH ×2 (17:37→22:42)
[2018-10-07] MEDS: THIAMINE HCL 100 MG TABLET (FP) PO SCH (22:42)
[2018-10-08] MEDS: chlordiazePOXIDE HCL 10 MG CAPSULE PO SCH ×2 (04:38→10:23)
[2018-10-08] MEDS ORDERED: METHADONE HCL 10 MG TABLET (FOR DETOX USE ONLY) PO SCH (10:00)
--- NOTE | 2018-10-08 10:07 | PN ---
BHS Progress Note (SOAP) Subjective: sleep better at night feeling better today no tremor no body aches less sweat no gi distress discuss aftercare with staff Objective: 10/08/18 10:07 Vital Signs Temperature 98.5 F 10/08/18 09:49 Pulse Rate 69 10/08/18 09:49 Respiratory Rate 16 10/08/18 09:49 Blood Pressure 105/60 10/08/18 09:49 O2 Sat by Pulse Oximetry (%) Laboratory Last Values WBC 5.7 K/mm3 (4.0-10.0) 10/05/18 05:45 RBC 4.15 M/mm3 (4.00-5.60) 10/05/18 05:45 Hgb 12.0 GM/dL (11.7-16.9) 10/05/18 05:45 Hct 37.2 % (35.4-49) 10/05/18 05:45 MCV 89.7 fl (80-96) 10/05/18 05:45 MCH 28.9 pg (25.7-33.7) 10/05/18 05:45 MCHC 32.2 g/dl (32.0-35.9) 10/05/18 05:45 RDW 12.9 % (11.9-15.9) 10/05/18 05:45 Plt Count 234 K/MM3 (134-434) 10/05/18 05:45 MPV 8.1 fl (7.5-11.1) 10/05/18 05:45 Sodium 143 mmol/L (136-145) 10/05/18 05:45 Potassium 4.4 mmol/L (3.5-5.1) 10/05/18 05:45 Chloride 109 mmol/L (98-107) H 10/05/18 05:45 Carbon Dioxide 28 mmol/L (21-32) 10/05/18 05:45 Anion Gap 5 MMOL/L (8-16) L 10/05/18 05:45 BUN 18 mg/dL (7-18) 10/05/18 05:45 Creatinine 1.2 mg/dL (0.55-1.3) 10/05/18 05:45 Creat Clearance w eGFR > 60 (>60) 10/05/18 05:45 Random Glucose 84 mg/dL (74-106) 10/05/18 05:45 Calcium 8.3 mg/dL (8.5-10.1) L 10/05/18 05:45 Total Bilirubin 0.2 mg/dL (0.2-1) 10/05/18 05:45 AST 15 U/L (15-37) 10/05/18 05:45 ALT 22 U/L (13-61) 10/05/18 05:45 Alkaline Phosphatase 64 U/L (45-117) 10/05/18 05:45 Total Protein 6.1 g/dl (6.4-8.2) L 10/05/18 05:45 Albumin 3.2 g/dl (3.4-5.0) L 10/05/18 05:45 RPR Titer Nonreactive (NONREACTIVE) 10/05/18 05:45 lab noted Assessment: 10/08/18 10:07 mild withdrawal sx Plan: medically supervised detox
[2018-10-08] MEDS: PRENATAL VITAMINS W/ FOLIC ACID TABLET (FP) PO SCH (10:22)
[2018-10-08] MEDS: NICOTINE 21 MG/24 HOURS TOPICAL PATCH TD SCH (10:22)
[2018-10-08] MEDS: THIAMINE HCL 100 MG TABLET (FP) PO SCH (22:22)
[2018-10-08] MEDS: MELATONIN 5 MG TABLETS PO PRN (22:22)
[2018-10-09] MEDS ORDERED: METHADONE HCL 5 MG TABLET (FOR DETOX USE ONLY) PO SCH (06:00)
[2018-10-09 06:18] VITALS: BP 142/90; PULSE 81; TEMP 96.9
--- NOTE | 2018-10-09 12:02 | DS ---
[facility] Detox Discharge Summary Admission Date: 10/04/18 Discharge Date: 10/09/18 - History Present History: Alcohol Dependence, Opioid Dependence Additional Comments: 53 years old male admitted on 10/04/18 for alcohol and opiate withdrawal stabilization completed detox regimen tolerated well alert no acute distress patient came to [facility] 8+ times for detox refuses aftercare strong recommend utilizes [facility] for medical mental and addiction issues - Physical Exam Results Vital Signs: Vital Signs Temperature 96.9 F L 10/09/18 06:17 Pulse Rate 81 10/09/18 06:17 Respiratory Rate 18 10/09/18 06:17 Blood Pressure 142/90 10/09/18 06:17 O2 Sat by Pulse Oximetry (%) Pertinent Admission Physical Exam Findings: alcohol and opiate withdrawal sx Vital Signs Temperature 96.9 F L 10/09/18 06:17 Pulse Rate 81 10/09/18 06:17 Respiratory Rate 18 10/09/18 06:17 Blood Pressure 142/90 10/09/18 06:17 O2 Sat by Pulse Oximetry (%) Laboratory Last Values WBC 5.7 K/mm3 (4.0-10.0) 10/05/18 05:45 RBC 4.15 M/mm3 (4.00-5.60) 10/05/18 05:45 Hgb 12.0 GM/dL (11.7-16.9) 10/05/18 05:45 Hct 37.2 % (35.4-49) 10/05/18 05:45 MCV 89.7 fl (80-96) 10/05/18 05:45 MCH 28.9 pg (25.7-33.7) 10/05/18 05:45 MCHC 32.2 g/dl (32.0-35.9) 10/05/18 05:45 RDW 12.9 % (11.9-15.9) 10/05/18 05:45 Plt Count 234 K/MM3 (134-434) 10/05/18 05:45 MPV 8.1 fl (7.5-11.1) 10/05/18 05:45 Sodium 143 mmol/L (136-145) 10/05/18 05:45 Potassium 4.4 mmol/L (3.5-5.1) 10/05/18 05:45 Chloride 109 mmol/L (98-107) H 10/05/18 05:45 Carbon Dioxide 28 mmol/L (21-32) 10/05/18 05:45 Anion Gap 5 MMOL/L (8-16) L 10/05/18 05:45 BUN 18 mg/dL (7-18) 10/05/18 05:45 Creatinine 1.2 mg/dL (0.55-1.3) 10/05/18 05:45 Creat Clearance w eGFR > 60 (>60) 10/05/18 05:45 Random Glucose 84 mg/dL (74-106) 10/05/18 05:45 Calcium 8.3 mg/dL (8.5-10.1) L 10/05/18 05:45 Total Bilirubin 0.2 mg/dL (0.2-1) 10/05/18 05:45 AST 15 U/L (15-37) 10/05/18 05:45 ALT 22 U/L (13-61) 10/05/18 05:45 Alkaline Phosphatase 64 U/L (45-117) 10/05/18 05:45 Total Protein 6.1 g/dl (6.4-8.2) L 10/05/18 05:45 Albumin 3.2 g/dl (3.4-5.0) L 10/05/18 05:45 RPR Titer Nonreactive (NONREACTIVE) 10/05/18 05:45 lab noted - Treatment Hospital Course: Detox Protocol Followed, Detoxed Safely, Responded well, Discharged Condition Good, Rehab Referral Accepted Patient has Accepted a Rehab Referral to: [facility] - Medication Discharge Medications: Ambulatory Orders NK [No Known Home Medication] 02/05/18 - Diagnosis (1) Alcohol dependence with uncomplicated withdrawal Status: Acute (2) Opioid dependence with withdrawal Status: Acute (3) Substance induced mood disorder Status: Suspected (4) Nicotine dependence Status: Acute Qualifiers: Nicotine product type: cigarettes Substance use status: in withdrawal Qualified Code(s): F17.213 - Nicotine dependence, cigarettes, with withdrawal - AMA Did Patient Leave Against Medical Advice: No
== END 2018-10-09 08:30 | disposition home or self-care (01) | DRG 773 ==
LOC: YASAS 09:16 → Y3N 13:48
PROC: HZ2ZZZZ Detoxification Services for Substance Abuse Treatment (ICD-10-PCS; principal; 2018-10-04)
DX: F11.23 Opioid dependence with withdrawal (principal); F10.230 Alcohol dependence with withdrawal, uncomplicated; F14.20 Cocaine dependence, uncomplicated; F17.213 Nicotine dependence, cigarettes, with withdrawal; F19.24 Other psychoactive substance dependence with psychoactive substance-induced mood disorder; E86.0 Dehydration; Z91.013 Allergy to seafood
CPT/HCPCS: 36415; 80053; 85027; 86593

== ENCOUNTER 2018-11-03 08:55 | Inpatient (IN) | payer OTHER ==
[2018-11-03 09:30] VITALS: BMI 22.8
--- NOTE | 2018-11-03 11:48 | HP ---
COWS - Scale Resting Pulse: 0= [place] 80 or Below Sweatin= Chills/Flushing Restless Observation: 1= Difficult to Sit Still Pupil Size: 0= Normal to Room Light Bone or Joint Aches: 1= Mild Discomfort Runny Nose/ Eye Tearin= Runny Nose/Eyes GI Upset > 30mins: 2= Nausea/Diarrhea Tremor Observation: 1= Tremor [place], Not Seen Yawning Observation: 1= 1-2x During Session Anxiety or Irritability: 2=Irritable/Anxious Goose Flesh Skin: 0=Smooth Skin COWS Score: 11 CIWA Score Nausea/Vomitin Muscle Tremors: 4-Moderate,w/Arms Extend Anxiety: 4-Mod. Anxious/Guarded Agitation: 1-Slight > Activity Paroxysmal Sweats: No Perspiration Orientation: 1-Uncertain about Date Tacttile Disturbances: 0-None Auditory Disturbances: 0-None Visual Disturbances: 0-None Headache: 2-Mild CIWA-Ar Total Score: 14 - Admission Criteria OASAS Guidelines: Admission for Medically Managed Detox: Requires at least one of the followin. CIWA greater than 12 2. Seizures within the past 24 hours 3. Delirium tremens within the past 24 hours 4. Hallucinations within the past 24 hours 5. Acute intervention needed for co occurring medical disorder 6. Acute intervention needed for co occurring psychiatric disorder 7. Severe withdrawal that cannot be handled at a lower level of care (continued vomiting, continued diarrhea, abnormal vital signs) requiring intravenous medication and/or fluids 8. Patient presents the following: CIWA greater than 12 Admission Criteria Met: Admission criteria met Admission ROS S - HPI Chief Complaint: I need to stop, I need help, I'm drinking too much Allergies/Adverse Reactions: Allergies Allergy/AdvReac Type Severity Reaction Status Date / Time shrimp Allergy Severe Hives Verified 11/03/18 10:44 No Known Drug Allergies Allergy Unknown Verified 11/03/18 10:44 History of Present Illness: 53 yo gentleman here for detox from alcohol and opiates - denies seizures but does have black outs. Last here in September but did not f/u with outpatient rehab. Encourage patient to consider methadone program and rehab after detox. Exam Limitations: Clinical Condition - Ebola screening Have you traveled outside of the country in the last 21 days: No (N) Have you had contact with anyone from an Ebola affected area: No Have you been sick,other than usual withdrawal symptoms: No Do you have a fever: No Patient History - Patient Medical History Hx Anemia: No Hx Asthma: No Hx Chronic Obstructive Pulmonary Disease (COPD): No Hx Cancer: No Hx Cardiac Disorders: No Hx Congestive Heart Failure: No Hx Hypertension: No Hx Hypercholesterolemia: No Hx Pacemaker: No HX Cerebrovascular Accident: No Hx Seizures: No Hx Dementia: No Hx Diabetes: No Hx Gastrointestinal Disorders: No Hx Liver Disease: No Hx Genitourinary Disorders: No Hx Sexually Transmitted Disorders: No Hx Renal Disease (ESRD): No Hx Thyroid Disease: No Hx Human Immunodeficiency Virus (HIV): No (last 08/09 negative) Hx Hepatitis C: No Hx Depression: No Hx Suicide Attempt: No (denies) Hx Bipolar Disorder: No Hx Schizophrenia: No - Patient Surgical History Past Surgical History: No Hx Neurologic Surgery: No Hx Cataract Extraction: No Hx Cardiac Surgery: No Hx Lung Surgery: No Hx Breast Surgery: No Hx Breast Biopsy: No Hx Abdominal Surgery: No Hx Appendectomy: No Hx Cholecystectomy: No Hx Genitourinary Surgery: No Hx Section: No Hx Orthopedic Surgery: No Anesthesia Reaction: No - PPD History Previous Implant?: Yes Documented Results: Negative w/o proof Implanted On Prior R Admission?: No Date: 06/14/18 Results: 0 mm PPD to be Administered?: No - Smoking Cessation Smoking history: Current every day smoker Have you smoked in the past 12 months: Yes Aproximately how many cigarettes per day: 20 Cigars Per Day: 0 Hx Chewing Tobacco Use: No Initiated information on smoking cessation: Yes 'Breaking Loose' booklet given: 11/03/18 (give on floor) - Substance & Tx. History Hx Alcohol Use: Yes Hx Substance Use: Yes Substance Use Type: Alcohol, Heroin Hx Substance Use Treatment: Yes (detox, rehab) - Substances Abused Heroin Route: Inhalation Frequency: Daily Amount used: 4 BAGS Age of first use: 39 Date of Last Use: 11/03/18 Alcohol Route: Oral Frequency: Daily Amount used: 1-2 PINT [place] Age of first use: 17 Date of Last Use: 11/03/18 cocaine Route: Smoking Frequency: Daily Amount used: $50 Age of first use: 17 Date of Last Use: 11/02/18 Family Disease History - Family Disease History Family Disease History: Other: Father (ALCOHOLISM- CIRRHOSIS OF LIVER), Mother (living - healthy ), Sister (three - living -healthy) Admission Physical Exam [facility] - Vital Signs Vital Signs: Vital Signs - 24 hr 11/03/18 09:25 Temperature 98.2 F Pulse Rate 76 Respiratory 20 Rate Blood Pressure 145/86 - Physical General Appearance: Yes: Nourished, Appropriately Dressed, Moderate Distress, Tremorous, Irritable, Anxious HEENTM: Yes: EOMI, Hearing grossly Normal, Normocephalic, Normal Voice, Pharynx Normal, Nasal Congestion Respiratory: Yes: Normal Breath Sounds, No Respiratory Distress Neck: Yes: No masses,lesions,Nodules, Supple Breast: Yes: Breast Exam Deferred Cardiology: Yes: Regular Rhythm, Regular Rate Abdominal: Yes: Flat Genitourinary: Yes: Within Normal Limits Back: Yes: Normal Inspection Musculoskeletal: Yes: full range of Motion, Gait Steady Extremities: Yes: Normal Inspection, Non-Tender Neurological: Yes: Alert, Motor Strength 5/5, Normal Mood/Affect, Normal Response Integumentary: Yes: Normal Color, Warm Lymphatic: Yes: Within Normal Limits - Diagnostic (1) Opioid dependence with withdrawal Current Visit: Yes Status: Chronic (2) Alcohol dependence with uncomplicated withdrawal Current Visit: Yes Status: Chronic (3) Cocaine abuse Current Visit: Yes Status: Chronic (4) Nicotine dependence Current Visit: Yes Status: Acute Qualifiers: Nicotine product type: cigarettes Substance use status: in withdrawal Qualified Code(s): F17.213 - Nicotine dependence, cigarettes, with withdrawal Cleared for Admission [facility] - Detox or Rehab [facility] Level of Care: Medically Managed Detox Regimen/Protocol: Methadone/Librium [facility] Breath Alcohol Content Breath Alcohol Content: 0 Urine Drug Screen - Results Drug Screen Negative: No Urine Drug Screen Results: ANNE-MARIE-Cocaine, OPI-Opiates
[2018-11-03] MEDS ORDERED: guaiFENesin/D-METHORPHAN HB 10 ML UNIT-DOSE CUPS PO PRN (11:50)
[2018-11-03] MEDS ORDERED: IBUPROFEN 400 MG TABLET (FP) PO PRN (11:50)
[2018-11-03] MEDS ORDERED: MAG HYDROX/AL HYDROX/SIMETH 30 ML UNIT-DOSE CUP PO PRN (11:50)
[2018-11-03] MEDS ORDERED: MENTHOL/PHENOL 1 EACH UD MM PRN (11:50)
[2018-11-03] MEDS ORDERED: MAGNESIUM CITRATE 300 ML BOTTLE PO PRN (11:50)
[2018-11-03] MEDS ORDERED: ACETAMINOPHEN 325 MG TABLET (FP) PO PRN (11:50)
[2018-11-03] MEDS ORDERED: LOPERAMIDE HCL 2 MG CAPSULE PO PRN (11:50)
[2018-11-03] MEDS ORDERED: P-EPHED 60MG/TRIPROLIDI 2.5MG TABLET PO PRN (11:50)
[2018-11-03] MEDS ORDERED: MAGNESIUM HYDROX 2400MG/30ML ORAL SUSPENSION 30 ML CUP PO PRN (11:50)
[2018-11-03] MEDS ORDERED: chlordiazePOXIDE HCL 25 MG CAPSULE PO PRN (11:50)
[2018-11-03] MEDS ORDERED: METHADONE HCL 10 MG TABLET (FOR DETOX USE ONLY) PO ONE ×2 (13:30→23:00)
[2018-11-03] MEDS: chlordiazePOXIDE HCL 25 MG CAPSULE PO SCH ×2 (17:43→22:59)
[2018-11-03] MEDS ORDERED: MELATONIN 5 MG TABLETS PO PRN (22:00)
[2018-11-03] MEDS: THIAMINE HCL 100 MG TABLET (FP) PO SCH (22:59)
[2018-11-04] MEDS: chlordiazePOXIDE HCL 25 MG CAPSULE PO SCH ×4 (05:06→22:07)
[2018-11-04] MEDS ORDERED: METHADONE HCL 10 MG TABLET (FOR DETOX USE ONLY) PO SCH (10:00)
[2018-11-04] MEDS: PRENATAL VITAMINS W/ FOLIC ACID TABLET (FP) PO SCH (10:25)
[2018-11-04 10:44] LABS: HEMATOCRIT 38.5 % (35.4-49); HEMOGLOBIN 12.4 GM/dL (11.7-16.9); MCH 28.8 pg (25.7-33.7); MCHC 32.1 g/dl (32.0-35.9); MEAN CELL VOLUME 89.7 fl (80-96); MEAN PLT VOLUME 8.3 fl (7.5-11.1); PLATELET COUNT 218 K/MM3 (134-434); WHITE BLOOD COUNT 5.3 K/mm3 (4.0-10.0)
[2018-11-04 10:57] LABS: ALBUMIN 2.8 g/dl (3.4-5.0); ALK PHOS 73 U/L (45-117); ANION GAP 7 MMOL/L (8-16); BILIRUBIN,TOTAL 0.2 mg/dL (0.2-1); BLOOD UREA NITROGEN 19 mg/dL (7-18); CALCIUM 8.4 mg/dL (8.5-10.1); CHLORIDE 111 mmol/L (98-107); CO2 26 mmol/L (21-32); CREATININE 1.1 mg/dL (0.55-1.3); GLUCOSE,RANDOM 103 mg/dL (74-106); POTASSIUM 3.3 mmol/L (3.5-5.1); SGOT/AST 13 U/L (15-37); SGPT/ALT 20 U/L (13-61); SODIUM 144 mmol/L (136-145); TOT PROT 5.4 g/dl (6.4-8.2)
--- NOTE | 2018-11-04 16:08 | PN ---
[facility] CIWA - CIWA Score Nausea/Vomitin Muscle Tremors: 4-Moderate,w/Arms Extend Anxiety: 4-Mod. Anxious/Guarded Agitation: 3 Paroxysmal Sweats: 3 Orientation: 0-Oriented Tacttile Disturbances: 1-Very Mild Itch/Numbness Auditory Disturbances: 0-None Visual Disturbances: 0-None Headache: 0-None Present CIWA-Ar Total Score: 17 BHS COWS - Scale Resting Pulse: 0= [place] 80 or Below Sweatin= Chills/Flushing Restless Observation: 3= Extraneous Movement Pupil Size: 0= Normal to Room Light Bone or Joint Aches: 2= Severe Diffuse Aches Runny Nose/ Eye Tearin= Runny Nose/Eyes GI Upset > 30mins: 3= Vomiting/Diarrhea Tremor Observation of Outstretched Hands: 2= Slight Tremor Visible Yawning Observation: 1= 1-2x During Session Anxiety or Irritability: 2=Irritable/Anxious Goose Flesh Skin: 0=Smooth Skin COWS Score: 16 S Progress Note (SOAP) Subjective: Denies any symptoms. Patient is anxious and restless Objective: 11/04/18 16:06 Last Vital Signs Temp Pulse Resp BP Pulse Ox 97.3 F L 64 16 112/72 11/04/18 14:15 11/04/18 14:15 11/04/18 14:15 11/04/18 14:15 Laboratory Tests 11/04/18 11/04/18 11/04/18 07:50 07:50 07:50 WBC 5.3 RBC 4.30 Hgb 12.4 Hct 38.5 MCV 89.7 MCH 28.8 MCHC 32.1 RDW 13.0 Plt Count 218 MPV 8.3 Sodium 144 Potassium 3.3 L Chloride 111 H Carbon Dioxide 26 Anion Gap 7 L BUN 19 H Creatinine 1.1 Creat Clearance w eGFR > 60 Random Glucose 103 Calcium 8.4 L Total Bilirubin 0.2 AST 13 L ALT 20 Alkaline Phosphatase 73 Total Protein 5.4 L Albumin 2.8 L RPR Titer HIV 1&2 Antibody Screen Negative HIV P24 Antigen Negative 11/04/18 07:50 WBC RBC Hgb Hct MCV MCH MCHC RDW Plt Count MPV Sodium Potassium Chloride Carbon Dioxide Anion Gap BUN Creatinine Creat Clearance w eGFR Random Glucose Calcium Total Bilirubin AST ALT Alkaline Phosphatase Total Protein Albumin RPR Titer Nonreactive HIV 1&2 Antibody Screen HIV P24 Antigen Labs reviewed: Carolyn 3.3 Assessment: 11/04/18 16:07 Withdrawal symptoms Noted with hypokalemia Plan: Continue detox Hypokalemia: K Dur 40 Meq PO x 2 doses, repeat serum K+ level in AM
[2018-11-04] MEDS ORDERED: POTASSIUM CHLORIDE TABS 20 MEQ TABLET.ER (FP) PO ONE ×2 (16:09→21:00)
[2018-11-04] MEDS: THIAMINE HCL 100 MG TABLET (FP) PO SCH (22:07)
[2018-11-05] MEDS: chlordiazePOXIDE HCL 25 MG CAPSULE PO SCH ×2 (06:01→10:36)
[2018-11-05] MEDS: METHADONE HCL 5 MG TABLET (FOR DETOX USE ONLY) PO SCH (10:36)
[2018-11-05] MEDS: PRENATAL VITAMINS W/ FOLIC ACID TABLET (FP) PO SCH (10:36)
--- NOTE | 2018-11-05 12:30 | PN ---
[facility] CIWA - CIWA Score Nausea/Vomitin-Mild Nausea/No Vomiting Muscle Tremors: 3 Anxiety: 2 Agitation: 1-Slight > Activity Paroxysmal Sweats: 1-Minimal Palms Moist Orientation: 0-Oriented Tacttile Disturbances: 0-None Auditory Disturbances: 0-None Visual Disturbances: 0-None Headache: 2-Mild CIWA-Ar Total Score: 10 BHS COWS - Scale Resting Pulse: 0= [place] 80 or Below Sweatin= Chills/Flushing Restless Observation: 0= Sits Still Pupil Size: 0= Normal to Room Light Bone or Joint Aches: 2= Severe Diffuse Aches Runny Nose/ Eye Tearin= Nasal Congestion GI Upset > 30mins: 2= Nausea/Diarrhea Tremor Observation of Outstretched Hands: 2= Slight Tremor Visible Yawning Observation: 1= 1-2x During Session Anxiety or Irritability: 1=Feels Anxious/Irritable Goose Flesh Skin: 0=Smooth Skin COWS Score: 10 [facility] Progress Note (SOAP) Subjective: body aches muscle cramping tremor sweating Objective: 11/05/18 12:29 Vital Signs Temperature 97.3 F L 11/05/18 09:25 Pulse Rate 63 11/05/18 09:25 Respiratory Rate 18 11/05/18 09:25 Blood Pressure 115/68 11/05/18 09:25 O2 Sat by Pulse Oximetry (%) Laboratory Last Values WBC 5.3 K/mm3 (4.0-10.0) 11/04/18 07:50 RBC 4.30 M/mm3 (4.00-5.60) 11/04/18 07:50 Hgb 12.4 GM/dL (11.7-16.9) 11/04/18 07:50 Hct 38.5 % (35.4-49) 11/04/18 07:50 MCV 89.7 fl (80-96) 11/04/18 07:50 MCH 28.8 pg (25.7-33.7) 11/04/18 07:50 MCHC 32.1 g/dl (32.0-35.9) 11/04/18 07:50 RDW 13.0 % (11.9-15.9) 11/04/18 07:50 Plt Count 218 K/MM3 (134-434) 11/04/18 07:50 MPV 8.3 fl (7.5-11.1) 11/04/18 07:50 Sodium 144 mmol/L (136-145) 11/04/18 07:50 Potassium 4.0 mmol/L (3.5-5.1) 11/05/18 08:15 Chloride 111 mmol/L (98-107) H 11/04/18 07:50 Carbon Dioxide 26 mmol/L (21-32) 11/04/18 07:50 Anion Gap 7 MMOL/L (8-16) L 11/04/18 07:50 BUN 19 mg/dL (7-18) H 11/04/18 07:50 Creatinine 1.1 mg/dL (0.55-1.3) 11/04/18 07:50 Creat Clearance w eGFR > 60 (>60) 11/04/18 07:50 Random Glucose 103 mg/dL (74-106) 11/04/18 07:50 Calcium 8.4 mg/dL (8.5-10.1) L 11/04/18 07:50 Total Bilirubin 0.2 mg/dL (0.2-1) 11/04/18 07:50 AST 13 U/L (15-37) L 11/04/18 07:50 ALT 20 U/L (13-61) 11/04/18 07:50 Alkaline Phosphatase 73 U/L (45-117) 11/04/18 07:50 Total Protein 5.4 g/dl (6.4-8.2) L 11/04/18 07:50 Albumin 2.8 g/dl (3.4-5.0) L 11/04/18 07:50 RPR Titer Nonreactive (NONREACTIVE) 11/04/18 07:50 HIV 1&2 Antibody Screen Negative 11/04/18 07:50 HIV P24 Antigen Negative 11/04/18 07:50 lab noted Assessment: 11/05/18 12:30 withdrawal sx Plan: continue detox
[2018-11-05] MEDS: chlordiazePOXIDE 5 MG CAPSULE PO SCH ×2 (17:01→22:14)
[2018-11-05] MEDS: THIAMINE HCL 100 MG TABLET (FP) PO SCH (22:14)
[2018-11-06] MEDS: chlordiazePOXIDE 5 MG CAPSULE PO SCH ×2 (06:44→10:39)
[2018-11-06] MEDS: PRENATAL VITAMINS W/ FOLIC ACID TABLET (FP) PO SCH (10:39)
[2018-11-06] MEDS: METHADONE HCL 5 MG TABLET (FOR DETOX USE ONLY) PO SCH (10:39)
--- NOTE | 2018-11-06 15:49 | PN ---
[facility] Progress Note (SOAP) Subjective: Runny Nose, Fatigue. Objective: PATIENT A & O X 2 (UNCERTAIN ABOUT CURRENT DAY / DATE). IN NO ACUTE DISTRESS. 11/06/18 15:47 Vital Signs Temperature 98.4 F 11/06/18 13:08 Pulse Rate 74 11/06/18 13:08 Respiratory Rate 18 11/06/18 13:08 Blood Pressure 118/71 11/06/18 13:08 O2 Sat by Pulse Oximetry (%) Laboratory Tests 11/04/18 11/04/18 11/04/18 07:50 07:50 07:50 WBC 5.3 RBC 4.30 Hgb 12.4 Hct 38.5 MCV 89.7 MCH 28.8 MCHC 32.1 RDW 13.0 Plt Count 218 MPV 8.3 Sodium 144 Potassium 3.3 L Chloride 111 H Carbon Dioxide 26 Anion Gap 7 L BUN 19 H Creatinine 1.1 Creat Clearance w eGFR > 60 Random Glucose 103 Calcium 8.4 L Total Bilirubin 0.2 AST 13 L ALT 20 Alkaline Phosphatase 73 Total Protein 5.4 L Albumin 2.8 L RPR Titer HIV 1&2 Antibody Screen Negative HIV P24 Antigen Negative 11/04/18 11/05/18 07:50 08:15 WBC RBC Hgb Hct MCV MCH MCHC RDW Plt Count MPV Sodium Potassium 4.0 Chloride Carbon Dioxide Anion Gap BUN Creatinine Creat Clearance w eGFR Random Glucose Calcium Total Bilirubin AST ALT Alkaline Phosphatase Total Protein Albumin RPR Titer Nonreactive HIV 1&2 Antibody Screen HIV P24 Antigen LABS NOTED. REPEAT K LEVEL FROM YESTERDAY NOTED TO BE WITHIN NORMAL RANGE. 11/06/18 15:48 Assessment: 11/06/18 15:48 WITHDRAWAL SYMPTOMS. Plan: CONTINUE DETOX. INCREASE DAILY PO FLUID INTAKE.
[2018-11-06] MEDS: chlordiazePOXIDE HCL 10 MG CAPSULE PO SCH ×2 (17:30→22:25)
[2018-11-06] MEDS: THIAMINE HCL 100 MG TABLET (FP) PO SCH (22:25)
[2018-11-07 06:04] VITALS: BP 128/75; PULSE 72; TEMP 96.6
[2018-11-07] MEDS: chlordiazePOXIDE HCL 10 MG CAPSULE PO SCH (06:05)
--- NOTE | 2018-11-07 08:33 | DS ---
[facility] Detox Discharge Summary Admission Date: 11/03/18 Discharge Date: 11/07/18 - History Present History: Alcohol Dependence, Opioid Dependence Additional Comments: 53 years old male admitted on 11/03/18 fo alcohol and opiate withdrawal stabilization completed detox regimen [facility] - Physical Exam Results Vital Signs: Vital Signs Temperature 96.6 F L 11/07/18 06:04 Pulse Rate 72 11/07/18 06:04 Respiratory Rate 18 11/07/18 06:04 Blood Pressure 128/75 11/07/18 06:04 O2 Sat by Pulse Oximetry (%) Pertinent Admission Physical Exam Findings: alcohol and opiate withdrawal sx Laboratory Last Values WBC 5.3 K/mm3 (4.0-10.0) 11/04/18 07:50 RBC 4.30 M/mm3 (4.00-5.60) 11/04/18 07:50 Hgb 12.4 GM/dL (11.7-16.9) 11/04/18 07:50 Hct 38.5 % (35.4-49) 11/04/18 07:50 MCV 89.7 fl (80-96) 11/04/18 07:50 MCH 28.8 pg (25.7-33.7) 11/04/18 07:50 MCHC 32.1 g/dl (32.0-35.9) 11/04/18 07:50 RDW 13.0 % (11.9-15.9) 11/04/18 07:50 Plt Count 218 K/MM3 (134-434) 11/04/18 07:50 MPV 8.3 fl (7.5-11.1) 11/04/18 07:50 Sodium 144 mmol/L (136-145) 11/04/18 07:50 Potassium 4.0 mmol/L (3.5-5.1) 11/05/18 08:15 Chloride 111 mmol/L (98-107) H 11/04/18 07:50 Carbon Dioxide 26 mmol/L (21-32) 11/04/18 07:50 Anion Gap 7 MMOL/L (8-16) L 11/04/18 07:50 BUN 19 mg/dL (7-18) H 11/04/18 07:50 Creatinine 1.1 mg/dL (0.55-1.3) 11/04/18 07:50 Creat Clearance w eGFR > 60 (>60) 11/04/18 07:50 Random Glucose 103 mg/dL (74-106) 11/04/18 07:50 Calcium 8.4 mg/dL (8.5-10.1) L 11/04/18 07:50 Total Bilirubin 0.2 mg/dL (0.2-1) 11/04/18 07:50 AST 13 U/L (15-37) L 11/04/18 07:50 ALT 20 U/L (13-61) 11/04/18 07:50 Alkaline Phosphatase 73 U/L (45-117) 11/04/18 07:50 Total Protein 5.4 g/dl (6.4-8.2) L 11/04/18 07:50 Albumin 2.8 g/dl (3.4-5.0) L 11/04/18 07:50 RPR Titer Nonreactive (NONREACTIVE) 11/04/18 07:50 HIV 1&2 Antibody Screen Negative 11/04/18 07:50 HIV P24 Antigen Negative 11/04/18 07:50 lab noted - Treatment Hospital Course: Detox Protocol Followed, Detoxed Safely, Responded well, Discharged Condition Good, Rehab Referral Accepted Patient has Accepted a Rehab Referral to: [facility] [place] - Medication Discharge Medications: Ambulatory Orders NK [No Known Home Medication] 02/05/18 - Diagnosis (1) Alcohol dependence with uncomplicated withdrawal Status: Acute (2) Opioid dependence with withdrawal Status: Acute (3) Nicotine dependence Status: Acute Qualifiers: Nicotine product type: cigarettes Substance use status: in withdrawal Qualified Code(s): F17.213 - Nicotine dependence, cigarettes, with withdrawal (4) Substance induced mood disorder Status: Suspected - AMA Did Patient Leave Against Medical Advice: No
[2018-11-07] MEDS: PRENATAL VITAMINS W/ FOLIC ACID TABLET (FP) PO SCH (09:03)
[2018-11-07] MEDS ORDERED: METHADONE HCL 5 MG TABLET (FOR DETOX USE ONLY) PO ONE (10:00)
[2018-11-07] MEDS ORDERED: METHADONE HCL 10 MG TABLET (FOR DETOX USE ONLY) PO SCH (10:00)
[2018-11-08] MEDS ORDERED: METHADONE HCL 5 MG TABLET (FOR DETOX USE ONLY) PO SCH (06:00)
== END 2018-11-07 09:15 | disposition home or self-care (01) | DRG 773 ==
LOC: YASAS 08:55 → Y3N 13:23
PROC: HZ2ZZZZ Detoxification Services for Substance Abuse Treatment (ICD-10-PCS; principal; 2018-11-03)
DX: F11.23 Opioid dependence with withdrawal (principal); F10.230 Alcohol dependence with withdrawal, uncomplicated; F14.10 Cocaine abuse, uncomplicated; F17.213 Nicotine dependence, cigarettes, with withdrawal; F19.24 Other psychoactive substance dependence with psychoactive substance-induced mood disorder; E87.6 Hypokalemia; Z91.013 Allergy to seafood
CPT/HCPCS: 36415; 80053; 84132; 85027; 86593; 87389

== ENCOUNTER 2018-11-19 08:43 | Inpatient (IN) | payer OTHER ==
[2018-11-19 09:14] VITALS: BMI 22.7
--- NOTE | 2018-11-19 11:23 | HP ---
[facility] Rehab Assess/Revision - Admission History Admitted to Rehab from: [facility] [place] - Vital signs Vital Signs: Vital Signs Period Temp Pulse Resp BP Sys/Santos Pulse Ox Last 24 Hr 97.7 F 86 18 136/89 - Findings Detox History & Physical reviewed: Yes Concur with findings: Yes Inpatient Rehab Admission - Initial Determination Are CD services needed?: Yes Free of communicable disease: Yes Not in need of hospitalization: Yes - Rehab Admission Criteria Previous failed treatment: Yes Comorbidities: Yes Lacks judgement: Yes
[2018-11-19] MEDS ORDERED: MAG HYDROX/AL HYDROX/SIMETH 30 ML UNIT-DOSE CUP PO PRN (11:26)
[2018-11-19] MEDS ORDERED: MAGNESIUM CITRATE 300 ML BOTTLE PO PRN (11:26)
[2018-11-19] MEDS ORDERED: MENTHOL/PHENOL 1 EACH UD MM PRN (11:26)
[2018-11-19] MEDS ORDERED: NICOTINE POLACRILEX 4 MG GUM BUC PRN (11:26)
[2018-11-19] MEDS ORDERED: ACETAMINOPHEN 325 MG TABLET (FP) PO PRN (11:26)
[2018-11-19] MEDS ORDERED: P-EPHED 60MG/TRIPROLIDI 2.5MG TABLET PO PRN (11:26)
[2018-11-19] MEDS ORDERED: LOPERAMIDE HCL 2 MG CAPSULE PO PRN (11:26)
[2018-11-19] MEDS ORDERED: MAGNESIUM HYDROX 2400MG/30ML ORAL SUSPENSION 30 ML CUP PO PRN (11:26)
[2018-11-19] MEDS ORDERED: guaiFENesin/D-METHORPHAN HB 10 ML UNIT-DOSE CUPS PO PRN (11:26)
[2018-11-19] MEDS ORDERED: IBUPROFEN 400 MG TABLET (FP) PO PRN (11:26)
[2018-11-19 14:52] LABS: HEMATOCRIT 35.4 % (35.4-49); HEMOGLOBIN 12.3 GM/dL (11.7-16.9); MCH 30.8 pg (25.7-33.7); MCHC 34.9 g/dl (32.0-35.9); MEAN CELL VOLUME 88.3 fl (80-96); MEAN PLT VOLUME 7.9 fl (7.5-11.1); PLATELET COUNT 246 K/MM3 (134-434); RDW 12.8 % (11.9-15.9); WHITE BLOOD COUNT 7.7 K/mm3 (4.0-10.0)
[2018-11-19 15:09] LABS: ALBUMIN 3.3 g/dl (3.4-5.0); ALK PHOS 66 U/L (45-117); ANION GAP 8 MMOL/L (8-16); BILIRUBIN,TOTAL 0.3 mg/dL (0.2-1); BLOOD UREA NITROGEN 25 mg/dL (7-18); CALCIUM 8.6 mg/dL (8.5-10.1); CHLORIDE 108 mmol/L (98-107); CO2 28 mmol/L (21-32); CREATININE 1.6 mg/dL (0.55-1.3); GLUCOSE,RANDOM 100 mg/dL (74-106); POTASSIUM 3.6 mmol/L (3.5-5.1); SGOT/AST 20 U/L (15-37); SGPT/ALT 25 U/L (13-61); SODIUM 144 mmol/L (136-145); TOT PROT 6.2 g/dl (6.4-8.2)
[2018-11-19] MEDS ORDERED: MELATONIN 5 MG TABLETS PO PRN (22:00)
[2018-11-19] MEDS: THIAMINE HCL 100 MG TABLET (FP) PO SCH (22:07)
[2018-11-20] MEDS: NICOTINE 21 MG/24 HOURS TOPICAL PATCH TD SCH (11:11)
[2018-11-20] MEDS: PRENATAL VITAMINS W/ FOLIC ACID TABLET (FP) PO SCH (11:11)
--- NOTE | 2018-11-20 15:52 | EKG ---
Test Reason : Blood Pressure : / mmHG Vent. Rate : 078 BPM Atrial Rate : 078 BPM P-R Int : 144 ms QRS Dur : 090 ms QT Int : 396 ms P-R-T Axes : 075 054 032 degrees QTc Int : 451 ms NORMAL SINUS RHYTHM NORMAL ECG WHEN COMPARED WITH ECG OF 19-NOV-2018 12:20, PREVIOUS ECG HAS UNDETERMINED RHYTHM, NEEDS REVIEW Confirmed by Pro Amador ([id number]) on 11/20/2018 3:51:55 PM Referred By: Confirmed By:Pro Amador
[2018-11-20] MEDS: THIAMINE HCL 100 MG TABLET (FP) PO SCH (22:10)
[2018-11-21] MEDS: PRENATAL VITAMINS W/ FOLIC ACID TABLET (FP) PO SCH (10:57)
[2018-11-21] MEDS: NICOTINE 21 MG/24 HOURS TOPICAL PATCH TD SCH (10:57)
[2018-11-21] MEDS: hydrOXYzine PAMOATE 50 MG CAPSULE (FP) PO PRN ×2 (15:10→21:32)
[2018-11-21] MEDS ORDERED: cloNIDine HCL 0.1 MG TABLET PO ONE (15:35)
--- NOTE | 2018-11-21 15:47 | PN ---
[facility] COWS - Scale Resting Pulse: 2= [place] 101-120 Sweatin= Chills/Flushing Restless Observation: 1= Difficult to Sit Still Pupil Size: 2= Moderately Dilated Bone or Joint Aches: 1= Mild Discomfort Runny Nose/ Eye Tearin= None GI Upset > 30mins: 0= None Tremor Observation of Outstretched Hands: 0= None Yawning Observation: 0= None Anxiety or Irritability: 2=Irritable/Anxious Goose Flesh Skin: 3=Piloerection COWS Score: 12 [facility] Progress Note (SOAP) Subjective: PATIENT C/O ANXIETY, RESTLESSNESS AND CHILLS. Objective: 11/21/18 15:44 Vital Signs Temperature 98.6 F 11/21/18 06:30 Pulse Rate 82 11/21/18 06:30 Respiratory Rate 18 11/21/18 06:30 Blood Pressure 149/98 11/21/18 06:30 O2 Sat by Pulse Oximetry (%) Laboratory Tests 11/19/18 11/19/18 11/19/18 11:30 11:30 11:30 WBC 7.7 RBC 4.00 Hgb 12.3 Hct 35.4 MCV 88.3 MCH 30.8 MCHC 34.9 RDW 12.8 Plt Count 246 MPV 7.9 Sodium 144 Potassium 3.6 Chloride 108 H Carbon Dioxide 28 Anion Gap 8 BUN 25 H Creatinine 1.6 H Creat Clearance w eGFR 45.27 Random Glucose 100 Calcium 8.6 Total Bilirubin 0.3 AST 20 ALT 25 Alkaline Phosphatase 66 Total Protein 6.2 L Albumin 3.3 L RPR Titer Nonreactive PE: ALERT AND ORIENTED X 3 SKIN WARM, + GOOSEFLESH CAR +TACHYCARDIC RESP NO ADVENTITIOUS BS EXT FULL ROM +ANXIETY/RESTLESSNESS Assessment: 11/21/18 15:45 WITHDRAWAL SX Plan: START CLONIDINE 0.1MG BID CONTINUE VISTARIL PRN PATIENT WOULD LIKE TO BE CONNECTED TO [facility] AND REFERRED TO COUNSELOR FOR REFERRAL. ONCE PATIENT CONNECTED, WILL START SUBOXONE.
[2018-11-21] MEDS: cloNIDine HCL 0.1 MG TABLET PO SCH (21:32)
[2018-11-21] MEDS: THIAMINE HCL 100 MG TABLET (FP) PO SCH (21:32)
[2018-11-22] MEDS: PRENATAL VITAMINS W/ FOLIC ACID TABLET (FP) PO SCH (10:25)
[2018-11-22] MEDS: cloNIDine HCL 0.1 MG TABLET PO SCH ×3 (10:25→22:22)
[2018-11-22] MEDS: NICOTINE 21 MG/24 HOURS TOPICAL PATCH TD SCH (10:25)
[2018-11-22] MEDS: THIAMINE HCL 100 MG TABLET (FP) PO SCH (22:22)
[2018-11-23 07:23] VITALS: BP 148/97; PULSE 66; TEMP 98.4
[2018-11-23] MEDS: cloNIDine HCL 0.1 MG TABLET PO SCH (10:22)
[2018-11-23] MEDS: NICOTINE 21 MG/24 HOURS TOPICAL PATCH TD SCH (10:22)
[2018-11-23] MEDS: PRENATAL VITAMINS W/ FOLIC ACID TABLET (FP) PO SCH (10:22)
[2018-11-23] MEDS: hydrOXYzine PAMOATE 50 MG CAPSULE (FP) PO PRN (10:22)
--- NOTE | 2018-11-23 15:23 | PN ---
BHS COWS - Scale Resting Pulse: 2= [place] 101-120 Sweatin= Chills/Flushing Restless Observation: 0= Sits Still Pupil Size: 1= Pupils >than Normal Bone or Joint Aches: 1= Mild Discomfort Runny Nose/ Eye Tearin= None GI Upset > 30mins: 2= Nausea/Diarrhea Tremor Observation of Outstretched Hands: 0= None Yawning Observation: 0= None Anxiety or Irritability: 2=Irritable/Anxious Goose Flesh Skin: 3=Piloerection COWS Score: 12 [facility] Progress Note (SOAP) Subjective: PATIENT C/O OPIOD CRAVINGS, MILD BODY ACHES, CHILLS AND DIARRHEA. Objective: 11/23/18 15:19 Laboratory Tests 11/19/18 11/19/18 11/19/18 11:30 11:30 11:30 WBC 7.7 RBC 4.00 Hgb 12.3 Hct 35.4 MCV 88.3 MCH 30.8 MCHC 34.9 RDW 12.8 Plt Count 246 MPV 7.9 Sodium 144 Potassium 3.6 Chloride 108 H Carbon Dioxide 28 Anion Gap 8 BUN 25 H Creatinine 1.6 H Creat Clearance w eGFR 45.27 Random Glucose 100 Calcium 8.6 Total Bilirubin 0.3 AST 20 ALT 25 Alkaline Phosphatase 66 Total Protein 6.2 L Albumin 3.3 L RPR Titer Nonreactive Vital Signs Temperature 98.4 F 11/23/18 07:22 Pulse Rate 66 11/23/18 07:22 Respiratory Rate 18 11/23/18 07:22 Blood Pressure 148/97 11/23/18 07:22 O2 Sat by Pulse Oximetry (%) PE: ALERT AND ORIENTED X 3 SKIN + GOOSEFLESH, MOIST EYES: EOMS INTACT BL, PUPILS 2MM B/L EXT FULL ROM, AMB AD THUY +ANXIETY Assessment: 11/23/18 15:21 WITHDRAWAL SX Plan: WILL START SUBOXONE 2MG X ONE TODAY THEN 2MG BID STARTING TOMORROW PATIENT CONNECTED TO [facility] PROGRAM ENCOURAGE ORAL FLUIDS CONTINUE TO MONITOR CLINICALLY
[2018-11-23] MEDS ORDERED: BUPRENORPHINE/NALOXONE 2 MG/0.5 MG FILM PACKET SL ONE (15:40)
--- NOTE | 2018-11-23 16:36 | PN ---
[facility] Progress Note Note: NOTIFIED BY RN PATIENT REQUESTED TO SIGN OUT AMA AND DECIDED NOT TO TAKE SUBOXONE FOR WITHDRAWAL SX ORDERED. SPREAD CUTTER SPOKE WITH PATIENT AND PATIENT STATED HE WILL FOLLOW UP WITH [facility] ON HIS OWN AND DID NOT WANT TO STAY ANY LONGER IN REHAB. SPREAD CUTTER ENCOURAGED PATIENT TO COMPLETE REHAB AND TO STAY UNTIL TOMORROW TO SPEAK WITH COUNSELOR AND DISCUSS OTHER AFTERCARE OPTIONS BUT PATIENT REFUSED. PATIENT STATED " I WILL BE ALRIGHT. I WANT TO GO HOME." PATIENT CONTINUED WITH AMA PROCESS DESPITE INTERVENTION. Vital Signs Temperature 98.4 F 11/23/18 07:22 Pulse Rate 66 11/23/18 07:22 Respiratory Rate 18 11/23/18 07:22 Blood Pressure 148/97 11/23/18 07:22 O2 Sat by Pulse Oximetry (%)
[2018-11-24] MEDS ORDERED: BUPRENORPHINE/NALOXONE 2 MG/0.5 MG FILM PACKET SL SCH (10:00)
== END 2018-11-23 16:10 | disposition left against medical advice (07) | DRG 770 ==
LOC: YASAS 08:43 → Y3W 11:40
PROVIDERS: ADMIT Psychiatry & Neurology Psychiatry; ATTEND Psychiatry & Neurology Psychiatry
PROC: HZ42ZZZ Group Counseling for Substance Abuse Treatment, Cognitive-Behavioral (ICD-10-PCS; principal; 2018-11-19)
DX: F11.23 Opioid dependence with withdrawal (principal); F10.230 Alcohol dependence with withdrawal, uncomplicated; F14.20 Cocaine dependence, uncomplicated; F17.210 Nicotine dependence, cigarettes, uncomplicated; F19.24 Other psychoactive substance dependence with psychoactive substance-induced mood disorder
CPT/HCPCS: 36415; 80053; 85027; 86593; 93005; 93010; J0735

== ENCOUNTER 2019-02-08 08:11 | Inpatient (IN) | payer OTHER ==
[2019-02-08 08:41] VITALS: BMI 23.3
--- NOTE | 2019-02-08 09:16 | HP ---
COWS - Scale Resting Pulse: 1= [place] 81-100 Sweatin= Chills/Flushing Restless Observation: 1= Difficult to Sit Still Pupil Size: 1= Pupils >than Normal Bone or Joint Aches: 2= Severe Diffuse Aches Runny Nose/ Eye Tearin= Runny Nose/Eyes GI Upset > 30mins: 2= Nausea/Diarrhea Tremor Observation: 2= Slight Tremor Visible Yawning Observation: 2= >3x During Session Anxiety or Irritability: 2=Irritable/Anxious Goose Flesh Skin: 0=Smooth Skin COWS Score: 16 CIWA Score Nausea/Vomitin Muscle Tremors: 2 Anxiety: 2 Agitation: 2 Paroxysmal Sweats: 1-Minimal Palms Moist Orientation: 0-Oriented Tacttile Disturbances: 1-Very Mild Itch/Numbness Auditory Disturbances: 1-Very Mild Visual Disturbances: 0-None Headache: 2-Mild CIWA-Ar Total Score: 13 - Admission Criteria OASAS Guidelines: Admission for Medically Managed Detox: Requires at least one of the followin. CIWA greater than 12 2. Seizures within the past 24 hours 3. Delirium tremens within the past 24 hours 4. Hallucinations within the past 24 hours 5. Acute intervention needed for co occurring medical disorder 6. Acute intervention needed for co occurring psychiatric disorder 7. Severe withdrawal that cannot be handled at a lower level of care (continued vomiting, continued diarrhea, abnormal vital signs) requiring intravenous medication and/or fluids 8. Admission ROS S - HPI Chief Complaint: i need help to stop using heroin,alcohol,cocaine Allergies/Adverse Reactions: Allergies Allergy/AdvReac Type Severity Reaction Status Date / Time shrimp Allergy Severe Hives Verified 02/08/19 08:36 No Known Drug Allergies Allergy Unknown Verified 02/08/19 08:36 History of Present Illness: this 53 years old male with heroin,cocaine and alcohol dependence,seeking detox, withdrawal symptom multiple admissions in detox,last 11/03/18 to 11/07/18 rehab 11/19/18 to 11/23/18 [facility] not completed nicotine dependence 1/2 pack ,do not want nicotine replacement longest period of sobriety 2 year Exam Limitations: No Limitations - Ebola screening Have you traveled outside of the country in the last 21 days: No (N) Have you had contact with anyone from an Ebola affected area: No Do you have a fever: No - Review of Systems Constitutional: Chills, Loss of Appetite, Malaise, Night Sweats, Changes in sleep, Weakness EENT: reports: Tearing, Nose Congestion Respiratory: reports: No Symptoms reported Cardiac: reports: No Symptoms Reported GI: reports: Nausea, Poor Appetite, Abdominal cramping : reports: No Symptoms Reported Integumentary: reports: Dryness Neuro: reports: Headache, Tremors Endocrine: reports: No Symptoms Reported Hematology: reports: No Symptoms Reported Psychiatric: reports: No Sypmtoms Reported, Judgement Intact, Mood/Affect Appropiate, Orientated x3 Other Systems: Reviewed and Negative Patient History - Patient Medical History Hx Anemia: No Hx Asthma: No Hx Chronic Obstructive Pulmonary Disease (COPD): No Hx Cancer: No Hx Cardiac Disorders: No Hx Congestive Heart Failure: No Hx Hypertension: No Hx Hypercholesterolemia: No Hx Pacemaker: No HX Cerebrovascular Accident: No Hx Seizures: No Hx Dementia: No Hx Diabetes: No Hx Gastrointestinal Disorders: No Hx Liver Disease: No Hx Genitourinary Disorders: No Hx Sexually Transmitted Disorders: No Hx Renal Disease (ESRD): No Hx Thyroid Disease: No Hx Human Immunodeficiency Virus (HIV): No (last 08/09 negative) Hx Hepatitis C: No Hx Depression: No Hx Suicide Attempt: No Hx Bipolar Disorder: No Hx Schizophrenia: No Other Medical History: no suicidal,no homicidal - Patient Surgical History Past Surgical History: No Hx Neurologic Surgery: No Hx Cataract Extraction: No Hx Cardiac Surgery: No Hx Lung Surgery: No Hx Breast Surgery: No Hx Breast Biopsy: No Hx Abdominal Surgery: No Hx Appendectomy: No Hx Cholecystectomy: No Hx Genitourinary Surgery: No Hx Section: No Hx Orthopedic Surgery: No Anesthesia Reaction: No - PPD History Previous Implant?: Yes Documented Results: Negative w/proof Date: 06/14/18 Results: 0 mm PPD to be Administered?: No - Smoking Cessation Smoking history: Current every day smoker Have you smoked in the past 12 months: Yes Aproximately how many cigarettes per day: 10 Cigars Per Day: 0 Hx Chewing Tobacco Use: No Initiated information on smoking cessation: Yes 'Breaking Loose' booklet given: 02/08/19 - Substance & Tx. History Hx Alcohol Use: Yes Hx Substance Use: Yes Substance Use Type: Alcohol, Cocaine, Heroin Hx Substance Use Treatment: Yes ([facility] 11/03/18 to 11/07/18.rehab 12/20/18 to 11/10 not completed) - Substances abused Alcohol Substance route: Oral Frequency: Daily Amount used: 2 PINTS VODKA Age of first use: 17 Date of last use: 02/07/19 Heroin Other (specify): SNIFF Frequency: Daily Amount used: 10 BAGS Age of first use: 24 Date of last use: 02/07/19 Cocaine Substance route: Smoking Frequency: 1-2 times per week Amount used: 200$ Age of first use: 17 Date of last use: 02/07/19 Family Disease History - Family Disease History Family Disease History: Other: Father (ALCOHOLISM- CIRRHOSIS OF LIVER), Mother (living - healthy ), Sister (three - living -healthy) Admission Physical Exam S - Vital Signs Vital Signs: Vital Signs - 24 hr 02/08/19 08:37 Temperature 97.9 F Pulse Rate 82 Respiratory 18 Rate Blood Pressure 105/63 - Physical General Appearance: Yes: Moderate Distress, Tremorous, Irritable, Sweating, Anxious HEENTM: Yes: Normal ENT Inspection, BRUCE, Pharynx Normal Respiratory: Yes: Within Normal Limits, Lungs Clear, No Respiratory Distress Neck: Yes: Within Normal Limits, Supple, Trachea in good position Breast: Yes: Within Normal Limits Cardiology: Yes: Within Normal Limits, Regular Rhythm, Regular Rate, S1, S2 Abdominal: Yes: Within Normal Limits, Normal Bowel Sounds, Non Tender, Soft Genitourinary: Yes: Within Normal Limits Back: Yes: Normal Inspection, Muscle Spasm Musculoskeletal: Yes: full range of Motion, Back pain, Muscle Pain Extremities: Yes: Within Normal Limits, Tremors Neurological: Yes: 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 intact, Fully Oriented, Alert, Motor Strength 5/5 Integumentary: Yes: Dry Lymphatic: Yes: Within Normal Limits - Diagnostic (1) Opioid dependence with withdrawal Current Visit: No Status: Acute (2) Alcohol dependence with uncomplicated withdrawal Current Visit: No Status: Acute (3) Nicotine dependence Current Visit: No Status: Acute Qualifiers: Nicotine product type: cigarettes Substance use status: uncomplicated Qualified Code(s): F17.210 - Nicotine dependence, cigarettes, uncomplicated (4) Syncope Current Visit: No Status: Acute (5) Cocaine dependence Current Visit: No Status: Chronic Qualifiers: Substance use status: uncomplicated Qualified Code(s): F14.20 - Cocaine dependence, uncomplicated Cleared for Admission S - Detox or Rehab [facility] Level of Care: Medically Managed Detox Regimen/Protocol: Methadone/Librium Inpatient Rehab Admission - Rehab Decision to Admit Inpatient rehab admission?: No
[2019-02-08] MEDS ORDERED: IBUPROFEN 400 MG TABLET (FP) PO PRN (09:22)
[2019-02-08] MEDS ORDERED: MAG HYDROX/AL HYDROX/SIMETH 30 ML UNIT-DOSE CUP PO PRN (09:22)
[2019-02-08] MEDS ORDERED: ACETAMINOPHEN 325 MG TABLET (FP) PO PRN ×2 (09:22)
[2019-02-08] MEDS ORDERED: MAGNESIUM CITRATE 300 ML BOTTLE PO PRN (09:22)
[2019-02-08] MEDS ORDERED: MAGNESIUM HYDROX 2400MG/30ML ORAL SUSPENSION 30 ML CUP PO PRN (09:22)
[2019-02-08] MEDS ORDERED: hydrOXYzine PAMOATE 25 MG CAPSULE (FP) PO PRN (09:22)
[2019-02-08] MEDS ORDERED: METHOCARBAMOL 500 MG TABLET PO PRN (09:22)
[2019-02-08] MEDS ORDERED: cloNIDine HCL 0.1 MG TABLET PO PRN (09:22)
[2019-02-08] MEDS ORDERED: MELATONIN 5 MG TABLETS PO PRN (09:22)
[2019-02-08] MEDS ORDERED: MENTHOL/PHENOL 1 EACH UD MM PRN (09:22)
[2019-02-08] MEDS ORDERED: BISMUTH SUBSALICYLATE 262 MG/15 ML BTL PO PRN (09:22)
[2019-02-08] MEDS ORDERED: chlordiazePOXIDE HCL 25 MG CAPSULE PO PRN (09:26)
[2019-02-08] MEDS ORDERED: METHADONE HCL 10 MG TABLET (FOR DETOX USE ONLY) PO ONE ×2 (09:55→23:00)
[2019-02-08] MEDS: PRENATAL VITAMINS W/ FOLIC ACID TABLET (FP) PO SCH (11:06)
[2019-02-08] MEDS: chlordiazePOXIDE HCL 25 MG CAPSULE PO SCH ×3 (11:06→22:47)
[2019-02-08 14:57] LABS: HEMATOCRIT 37.2 % (35.4-49); HEMOGLOBIN 12.6 GM/dL (11.7-16.9); MCH 30.5 pg (25.7-33.7); MEAN CELL VOLUME 89.8 fl (80-96); MEAN PLT VOLUME 7.9 fl (7.5-11.1); PLATELET COUNT 221 K/MM3 (134-434); RBC 4.14 M/mm3 (4.00-5.60); RDW 12.8 % (11.9-15.9); WHITE BLOOD COUNT 7.1 K/mm3 (4.0-10.0)
[2019-02-08 15:10] LABS: ALBUMIN 3.3 g/dl (3.4-5.0); ALK PHOS 65 U/L (45-117); ANION GAP 3 MMOL/L (8-16); BILIRUBIN,TOTAL 0.2 mg/dL (0.2-1); BLOOD UREA NITROGEN 19 mg/dL (7-18); CALCIUM 8.8 mg/dL (8.5-10.1); CHLORIDE 108 mmol/L (98-107); CO2 29 mmol/L (21-32); CREATININE 1.2 mg/dL (0.55-1.3); GLUCOSE,RANDOM 116 mg/dL (74-106); SGOT/AST 22 U/L (15-37); SGPT/ALT 29 U/L (13-61); SODIUM 140 mmol/L (136-145); TOT PROT 6.4 g/dl (6.4-8.2)
[2019-02-08] MEDS: THIAMINE HCL 100 MG TABLET (FP) PO SCH (22:47)
[2019-02-09] MEDS: chlordiazePOXIDE HCL 25 MG CAPSULE PO SCH ×4 (06:47→23:55)
[2019-02-09] MEDS ORDERED: METHADONE HCL 10 MG TABLET (FOR DETOX USE ONLY) PO ONE (10:00)
[2019-02-09] MEDS: PRENATAL VITAMINS W/ FOLIC ACID TABLET (FP) PO SCH (11:14)
--- NOTE | 2019-02-09 17:14 | PN ---
S CIWA - CIWA Score Nausea/Vomitin-No Nausea/No Vomiting Muscle Tremors: 2 Anxiety: 2 Agitation: 0-Normal Activity Paroxysmal Sweats: 4-Forehead w/Sweat Beads Orientation: 0-Oriented Tacttile Disturbances: 0-None Auditory Disturbances: 0-None Visual Disturbances: 0-None Headache: 2-Mild CIWA-Ar Total Score: 10 S COWS - Scale Resting Pulse: 0= [place] 80 or Below Sweatin= Beads of Sweat on Face Restless Observation: 0= Sits Still Pupil Size: 0= Normal to Room Light Bone or Joint Aches: 1= Mild Discomfort Runny Nose/ Eye Tearin= None GI Upset > 30mins: 0= None Tremor Observation of Outstretched Hands: 2= Slight Tremor Visible Yawning Observation: 1= 1-2x During Session Anxiety or Irritability: 2=Irritable/Anxious Goose Flesh Skin: 0=Smooth Skin COWS Score: 9 S Progress Note (SOAP) Subjective: sweats mild discomfort headache Objective: 02/09/19 17:13 Vital Signs 02/09/19 02/09/19 10:00 14:39 Temperature 96.9 F L 97.9 F Pulse Rate 59 L 63 Respiratory 18 18 Rate Blood Pressure 134/80 135/77 Laboratory Last Values WBC 7.1 K/mm3 (4.0-10.0) 02/08/19 09:20 RBC 4.14 M/mm3 (4.00-5.60) 02/08/19 09:20 Hgb 12.6 GM/dL (11.7-16.9) 02/08/19 09:20 Hct 37.2 % (35.4-49) 02/08/19 09:20 MCV 89.8 fl (80-96) 02/08/19 09:20 MCH 30.5 pg (25.7-33.7) 02/08/19 09:20 MCHC 34.0 g/dl (32.0-35.9) 02/08/19 09:20 RDW 12.8 % (11.9-15.9) 02/08/19 09:20 Plt Count 221 K/MM3 (134-434) 02/08/19 09:20 MPV 7.9 fl (7.5-11.1) 02/08/19 09:20 Sodium 140 mmol/L (136-145) 02/08/19 09:20 Potassium 4.0 mmol/L (3.5-5.1) 02/08/19 09:20 Chloride 108 mmol/L (98-107) H 02/08/19 09:20 Carbon Dioxide 29 mmol/L (21-32) 02/08/19 09:20 Anion Gap 3 MMOL/L (8-16) L 02/08/19 09:20 BUN 19 mg/dL (7-18) H 02/08/19 09:20 Creatinine 1.2 mg/dL (0.55-1.3) 02/08/19 09:20 Creat Clearance w eGFR 63.09 (>60) 02/08/19 09:20 Random Glucose 116 mg/dL (74-106) H 02/08/19 09:20 Calcium 8.8 mg/dL (8.5-10.1) 02/08/19 09:20 Total Bilirubin 0.2 mg/dL (0.2-1) 02/08/19 09:20 AST 22 U/L (15-37) 02/08/19 09:20 ALT 29 U/L (13-61) 02/08/19 09:20 Alkaline Phosphatase 65 U/L (45-117) 02/08/19 09:20 Total Protein 6.4 g/dl (6.4-8.2) 02/08/19 09:20 Albumin 3.3 g/dl (3.4-5.0) L 02/08/19 09:20 RPR Titer Nonreactive (NONREACTIVE) 02/08/19 09:20 Labs noted Assessment: 02/09/19 17:13 AOX3 no distress full rom Ambulating in the unit withdrawal symptoms 02/09/19 17:14 Plan: continue detox increase fluids continue to monitor
[2019-02-09] MEDS: THIAMINE HCL 100 MG TABLET (FP) PO SCH (23:38)
[2019-02-10] MEDS: chlordiazePOXIDE HCL 25 MG CAPSULE PO SCH (05:38)
[2019-02-10] MEDS ORDERED: METHADONE HCL 10 MG TABLET (FOR DETOX USE ONLY) PO ONE (10:00)
[2019-02-10] MEDS: chlordiazePOXIDE HCL 10 MG CAPSULE PO SCH ×3 (10:52→23:39)
[2019-02-10] MEDS: PRENATAL VITAMINS W/ FOLIC ACID TABLET (FP) PO SCH (10:52)
[2019-02-10] MEDS ORDERED: chlordiazePOXIDE HCL 10 MG CAPSULE PO PRN (11:00)
--- NOTE | 2019-02-10 15:55 | PN ---
[facility] CIWA - CIWA Score Nausea/Vomitin-Mild Nausea/No Vomiting Muscle Tremors: 3 Anxiety: 3 Agitation: 3 Paroxysmal Sweats: 3 Orientation: 0-Oriented Tacttile Disturbances: 0-None Auditory Disturbances: 0-None Visual Disturbances: 0-None Headache: 0-None Present CIWA-Ar Total Score: 13 BHS COWS - Scale Resting Pulse: 1= HI 81-100 Sweatin= Chills/Flushing Restless Observation: 3= Extraneous Movement Pupil Size: 0= Normal to Room Light Bone or Joint Aches: 2= Severe Diffuse Aches Runny Nose/ Eye Tearin= Runny Nose/Eyes GI Upset > 30mins: 3= Vomiting/Diarrhea Tremor Observation of Outstretched Hands: 2= Slight Tremor Visible Yawning Observation: 0= None Anxiety or Irritability: 2=Irritable/Anxious Goose Flesh Skin: 0=Smooth Skin COWS Score: 16 BHS Progress Note (SOAP) Subjective: Tremor, sweating, chills, interrupted sleep Objective: 02/10/19 15:51 Last Vital Signs Temp Pulse Resp BP Pulse Ox 97.6 F 82 18 138/99 02/10/19 14:28 02/10/19 14:28 02/10/19 14:28 02/10/19 14:28 Elevated b/p: on clonidine prn Laboratory Tests 02/08/19 02/08/19 02/08/19 09:20 09:20 09:20 WBC 7.1 RBC 4.14 Hgb 12.6 Hct 37.2 MCV 89.8 MCH 30.5 MCHC 34.0 RDW 12.8 Plt Count 221 MPV 7.9 Sodium 140 Potassium 4.0 Chloride 108 H Carbon Dioxide 29 Anion Gap 3 L BUN 19 H Creatinine 1.2 Creat Clearance w eGFR 63.09 Random Glucose 116 H Calcium 8.8 Total Bilirubin 0.2 AST 22 ALT 29 Alkaline Phosphatase 65 Total Protein 6.4 Albumin 3.3 L RPR Titer Nonreactive Labs reviewed: serum glucose level 116 02/10/19 15:54 Assessment: 02/10/19 15:52 Withdrawal symptoms Noted with mild hyperglycemia and elevated blood pressure Plan: Continue detox Encouraged PO water hydration Hyperglycemia: most likely r/t withdrawal, repeat fasting glucose Elevated blood pressure: continue clonidine prn
[2019-02-10] MEDS: THIAMINE HCL 100 MG TABLET (FP) PO SCH (23:38)
[2019-02-11] MEDS: chlordiazePOXIDE HCL 10 MG CAPSULE PO SCH (05:59)
[2019-02-11] MEDS ORDERED: METHADONE HCL 10 MG TABLET (FOR DETOX USE ONLY) PO ONE (10:00)
[2019-02-11 10:44] VITALS: BP 124/77; PULSE 76; TEMP 98.1
[2019-02-11] MEDS ORDERED: chlordiazePOXIDE HCL 10 MG CAPSULE PO SCH (11:00)
[2019-02-11] MEDS: PRENATAL VITAMINS W/ FOLIC ACID TABLET (FP) PO SCH (11:47)
--- NOTE | 2019-02-11 12:39 | DS ---
[facility] Detox Discharge Summary Admission Date: 02/08/19 Discharge Date: 02/11/19 - History Present History: Alcohol Dependence, Opioid Dependence - Physical Exam Results Vital Signs: Vital Signs Temperature 98.1 F 02/11/19 10:44 Pulse Rate 76 02/11/19 10:44 Respiratory Rate 16 02/11/19 10:44 Blood Pressure 124/77 02/11/19 10:44 O2 Sat by Pulse Oximetry (%) - Treatment Hospital Course: Detox Protocol Followed, Detoxed Safely, Responded well, Discharged Condition Good, Rehab Referral Accepted - Medication Discharge Medications: Ambulatory Orders NK [No Known Home Medication] 02/05/18 - Diagnosis (1) Opioid dependence Current Visit: Yes Status: Chronic Qualifiers: Substance use status: uncomplicated Qualified Code(s): F11.20 - Opioid dependence, uncomplicated (2) Alcohol dependence Current Visit: Yes Status: Chronic Qualifiers: Substance use status: uncomplicated Qualified Code(s): F10.20 - Alcohol dependence, uncomplicated (3) Nicotine dependence Current Visit: No Status: Chronic Qualifiers: Nicotine product type: cigarettes Substance use status: uncomplicated Qualified Code(s): F17.210 - Nicotine dependence, cigarettes, uncomplicated - AMA Did Patient Leave Against Medical Advice: No
--- NOTE | 2019-02-11 12:41 | PN ---
[facility] Progress Note Note: PATIENT TO COMPLETE DETOX TOMORROW. PATIENT STATES HE FEELS WELL AND DENIES WITHDRAWAL SYMPTOMS. PATIENT STATES HE WILL GO TO [facility] AND MAKE HIS OWN APPT. PATIENT MEDICALLY STABLE AND DENIES SI/HI. PATIENT GIVEN D/C INSTRUCTIONS BY NURSING STAFF. Vital Signs Temperature 98.1 F 02/11/19 10:44 Pulse Rate 76 02/11/19 10:44 Respiratory Rate 16 02/11/19 10:44 Blood Pressure 124/77 02/11/19 10:44 O2 Sat by Pulse Oximetry (%)
[2019-02-12] MEDS ORDERED: METHADONE HCL 5 MG TABLET (FOR DETOX USE ONLY) PO ONE (06:00)
== END 2019-02-11 12:46 | disposition home or self-care (01) | DRG 773 ==
LOC: YASAS 08:11 → Y6N 09:45
PROVIDERS: ADMIT Surgery; ATTEND Surgery
PROC: HZ2ZZZZ Detoxification Services for Substance Abuse Treatment (ICD-10-PCS; principal; 2019-02-08)
DX: F11.23 Opioid dependence with withdrawal (principal); F10.230 Alcohol dependence with withdrawal, uncomplicated; F14.20 Cocaine dependence, uncomplicated; F17.213 Nicotine dependence, cigarettes, with withdrawal; I10 Essential (primary) hypertension; R73.9 Hyperglycemia, unspecified; Z91.013 Allergy to seafood; Z59.0 Homelessness
CPT/HCPCS: 36415; 80053; 82947; 85027; 86593; J0735

== ENCOUNTER 2019-09-14 01:36 | Inpatient (IN) | payer SELFPAY ==
[2019-09-14 02:15] VITALS: BMI 24.3
--- NOTE | 2019-09-14 03:09 | HP ---
"COWS - Scale Resting Pulse: 0= AR 80 or Below Sweatin=Flushed/Facial Moisture Restless Observation: 0= Sits Still Pupil Size: 1= Pupils >than Normal Bone or Joint Aches: 0= None Runny Nose/ Eye Tearin= Nasal Congestion GI Upset > 30mins: 1= Stomach Cramp (Mild nausea, increased bowel sounds) Tremor Observation: 2= Slight Tremor Visible Yawning Observation: 1= 1-2x During Session Anxiety or Irritability: 1=Feels Anxious/Irritable Goose Flesh Skin: 0=Smooth Skin COWS Score: 9 CIWA Score Nausea/Vomitin-Mild Nausea/No Vomiting Muscle Tremors: 4-Moderate,w/Arms Extend Anxiety: 3 Agitation: 0-Normal Activity Paroxysmal Sweats: No Perspiration Orientation: 2-Disoriented Date<2 days Tacttile Disturbances: 1-Very Mild Itch/Numbness Auditory Disturbances: 0-None Visual Disturbances: 0-None Headache: 0-None Present CIWA-Ar Total Score: 11 - Admission Criteria OASAS Guidelines: Admission for Medically Managed Detox: Requires at least one of the followin. CIWA greater than 12 2. Seizures within the past 24 hours 3. Delirium tremens within the past 24 hours 4. Hallucinations within the past 24 hours 5. Acute intervention needed for co occurring medical disorder 6. Acute intervention needed for co occurring psychiatric disorder 7. Severe withdrawal that cannot be handled at a lower level of care (continued vomiting, continued diarrhea, abnormal vital signs) requiring intravenous medication and/or fluids 8. Patient presents the following: Acute intervention needed for co-occurring med or psych disorder (Poly-substance use. Benefits of treatment outweigh the risks of withholding treatment.) Admission Criteria Met: Admission criteria met Admitting History and Physical - Smoking History Smoking history: Current every day smoker Have you smoked in the past 12 months: Yes Aproximately how many cigarettes per day: 10 - Alcohol/Substance Use Hx Alcohol Use: Yes Admission ROS BHS - HPI Chief Complaint: Here for detox from alcohol and drugs. Allergies/Adverse Reactions: Allergies Allergy/AdvReac Type Severity Reaction Status Date / Time shrimp Allergy Severe Hives Verified 02/08/19 08:36 No Known Drug Allergies Allergy Unknown Verified 02/08/19 08:36 History of Present Illness: 54 yo present w/ heroin and alcohol withdrawal, seeking detox Last detox 02/11/19: States relapsed 2 months after last detox. MAURICIO: 0.0 UTox: + ANNE-MARIE/FEN/MOP Denies seizures, blackouts, overdoses. Alcohol use began at age 17. Currently drinks 2 qts/day x 3 years. Last drink about 10: 00 pm Heroin use began at age 21. Uses approx 6 bags/day, nasally. Last used about 10 pm. No Narcan kit. Reviewed the importance of narcan kit and states will consider at discharge. Has never been on MAT. Cocaine use began at age 17. Currently smokes 2 gms/day Denies nicotine use. Stopped 1 month ago. PMHx: Denies significant PMH MHHx: Denies depression. Denies thoughts of harming self or others SHx: Homeless. Unemployed. Denies legal problems. Search Terms: Nikita Esther, 1965 Search Date: 09/14/2019 03:08:27 AM The Drug Utilization Report below displays all of the controlled substance prescriptions, if any, that your patient has filled in the last twelve months. The information displayed on this report is compiled from pharmacy submissions to the Department, and accurately reflects the information as submitted by the pharmacies. This report was requested by: Myra Lemon | Reference #: [id number] There are no results for the search terms that you entered. Exam Limitations: No Limitations - Ebola screening Have you traveled outside of the country in the last 21 days: No Have you had contact with anyone from an Ebola affected area: No Have you been sick,other than usual withdrawal symptoms: No Do you have a fever: No - Review of Systems Constitutional: Chills, Weight Stable EENT: reports: Nose Congestion Respiratory: reports: No Symptoms reported Cardiac: reports: No Symptoms Reported : reports: No Symptoms Reported Musculoskeletal: reports: No Symptoms Reported Integumentary: reports: No Symptoms Reported Neuro: reports: Tremors Endocrine: reports: Increased Thirst Hematology: reports: No Symptoms Reported Psychiatric: reports: Judgement Intact, Orientated x3 (Missed date by 2 days), Anxious Patient History - Patient Medical History Hx Anemia: No Hx Asthma: No Hx Chronic Obstructive Pulmonary Disease (COPD): No Hx Cancer: No Hx Cardiac Disorders: No Hx Congestive Heart Failure: No Hx Hypertension: No Hx Hypercholesterolemia: No Hx Pacemaker: No HX Cerebrovascular Accident: No Hx Seizures: No Hx Dementia: No Hx Diabetes: No Hx Gastrointestinal Disorders: No Hx Liver Disease: No Hx Genitourinary Disorders: No Hx Sexually Transmitted Disorders: No Hx Renal Disease (ESRD): No Hx Thyroid Disease: No Hx Human Immunodeficiency Virus (HIV): No (last 08/09 negative) Hx Hepatitis C: No Hx Depression: No Hx Suicide Attempt: No Hx Bipolar Disorder: No Hx Schizophrenia: No - Patient Surgical History Past Surgical History: No Hx Neurologic Surgery: No Hx Cataract Extraction: No Hx Cardiac Surgery: No Hx Lung Surgery: No Hx Breast Surgery: No Hx Breast Biopsy: No Hx Abdominal Surgery: No Hx Appendectomy: No Hx Cholecystectomy: No Hx Genitourinary Surgery: No Hx Section: No Hx Orthopedic Surgery: No Anesthesia Reaction: No - PPD History Previous Implant?: Yes Documented Results: Negative w/proof Implanted On Prior [facility] Admission?: Yes Date: 06/14/18 Results: 0 mm PPD to be Administered?: No - Smoking Cessation Smoking history: Former smoker Have you smoked in the past 12 months: Yes Aproximately how many cigarettes per day: 0 (Stopped 1 month ago) Cigars Per Day: 0 Hx Chewing Tobacco Use: No Initiated information on smoking cessation: Yes 'Breaking Loose' booklet given: 09/14/19 - Substance & Tx. History Hx Alcohol Use: Yes Hx Substance Use: Yes Substance Use Type: Alcohol, Cocaine, Heroin, Opiates Hx Substance Use Treatment: Yes (detox, rehabs) - Substances abused Alcohol Substance route: Oral Frequency: Daily Amount used: 2 PINTS VODKA Age of first use: 17 Date of last use: 02/07/19 Heroin Other (specify): SNIFF Frequency: Daily Amount used: 10 BAGS Age of first use: 24 Date of last use: 02/07/19 Cocaine Substance route: Smoking Frequency: 1-2 times per week Amount used: 200$ Age of first use: 17 Date of last use: 02/07/19 Admission Physical Exam BHS - Vital Signs Vital Signs: Vital Signs - 24 hr 09/14/19 02:10 Temperature 98.1 F Pulse Rate 79 Respiratory 18 Rate Blood Pressure 136/80 - Physical General Appearance: Yes: Mild Distress, Tremorous, Anxious HEENTM: Yes: EOMI, Hearing grossly Normal, Normocephalic, Normal Voice, BRUCE ( Pupils = 3 mm), Pharynx Normal Respiratory: Yes: Lungs Clear (Pulse Ox = 99 %), Normal Breath Sounds, No Respiratory Distress Neck: Yes: No masses,lesions,Nodules, Supple Breast: Yes: Breast Exam Deferred Cardiology: Yes: Regular Rhythm, S1, S2, Murmur Abdominal: Yes: Non Tender, Flat, Soft, Increased Bowel Sounds Genitourinary: Yes: Within Normal Limits Back: Yes: Normal Inspection Musculoskeletal: Yes: full range of Motion, Gait Steady Extremities: Yes: Normal Capillary Refill (Peripheral pulses +), Other ( Thickened, flaky, elongated toe nails. Dry flaky skin on feet.) Neurological: Yes: procedures analyst II-XII NML intact, Alert, Motor Strength 5/5 Integumentary: Yes: Normal Color, Warm, Other (Decreased skin turgor;) Lymphatic: Yes: Within Normal Limits - Diagnostic (1) Cardiac murmur Current Visit: Yes Status: Acute (2) Alcohol dependence with uncomplicated withdrawal Current Visit: No Status: Acute (3) Opioid dependence with withdrawal Current Visit: Yes Status: Acute (4) Nicotine dependence Current Visit: No Status: Chronic Qualifiers: Nicotine product type: cigarettes Substance use status: in remission Qualified Code(s): F17.211 - Nicotine dependence, cigarettes, in remission Comment: Stopped smoking July 2019 Cleared for Admission [facility] - Detox or Rehab [facility] Level of Care: Medically Managed Detox Regimen/Protocol: Methadone/Valium Claeared for Rehab Admission: No Breathalyzer - Breathalyzer Breathalyzer: 0 Urine Drug Screen - Test Device Lot number: [id number] Expiration date: 05/22/21 - Control Is test valid?: Yes - Results Drug screen NEGATIVE: No Urine drug screen results: ANNE-MARIE-Cocaine, FEN-Fentanyl, MOP-Opiates Inpatient Rehab Admission - Rehab Decision to Admit Inpatient rehab admission?: No"
[2019-09-14] MEDS ORDERED: MENTHOL/PHENOL 1 EACH UD MM PRN (04:18)
[2019-09-14] MEDS ORDERED: BISMUTH SUBSALICYLATE 524 MG/30 ML UD PO PRN (04:18)
[2019-09-14] MEDS ORDERED: METHOCARBAMOL 500 MG TABLET PO PRN (04:18)
[2019-09-14] MEDS ORDERED: IBUPROFEN 400 MG TABLET (FP) PO PRN (04:18)
[2019-09-14] MEDS ORDERED: MELATONIN 5 MG TABLETS PO PRN (04:18)
[2019-09-14] MEDS ORDERED: MAGNESIUM HYDROXIDE 400 MG/5 ML SUSPENSION PO PRN (04:18)
[2019-09-14] MEDS ORDERED: diazePAM 5 MG TABLET PO PRN (04:18)
[2019-09-14] MEDS ORDERED: MAGNESIUM CITRATE 300 ML BOTTLE PO PRN (04:18)
[2019-09-14] MEDS ORDERED: MAG HYDROX/AL HYDROX/SIMETH 30 ML UNIT-DOSE CUP PO PRN (04:18)
[2019-09-14] MEDS ORDERED: NICOTINE POLACRILEX 2 MG GUM BUC PRN (04:18)
[2019-09-14] MEDS ORDERED: ACETAMINOPHEN 325 MG TABLET (FP) PO PRN ×2 (04:18)
[2019-09-14] MEDS: diazePAM 5 MG TABLET PO SCH ×3 (06:22→22:50)
[2019-09-14] MEDS ORDERED: METHADONE HCL 10 MG TABLET (FOR DETOX USE ONLY) PO ONE (10:00)
[2019-09-14] MEDS: TOLNAFTATE 1% CREAM 15 GM TUBE TP SCH ×2 (12:12→22:51)
[2019-09-14] MEDS: PRENATAL VITAMINS W/ FOLIC ACID TABLET (FP) PO SCH (12:12)
--- NOTE | 2019-09-14 16:25 | PN ---
[facility] CIWA - CIWA Score Nausea/Vomitin-No Nausea/No Vomiting Muscle Tremors: 3 Anxiety: 3 Agitation: 1-Slight > Activity Paroxysmal Sweats: 3 Orientation: 0-Oriented Tacttile Disturbances: 1-Very Mild Itch/Numbness Auditory Disturbances: 0-None Visual Disturbances: 0-None Headache: 0-None Present CIWA-Ar Total Score: 11 S COWS - Scale Resting Pulse: 1= [place] 81-100 Sweatin= Chills/Flushing Restless Observation: 0= Sits Still Pupil Size: 0= Normal to Room Light Bone or Joint Aches: 0= None Runny Nose/ Eye Tearin= None GI Upset > 30mins: 0= None Tremor Observation of Outstretched Hands: 2= Slight Tremor Visible Yawning Observation: 1= 1-2x During Session Anxiety or Irritability: 2=Irritable/Anxious Goose Flesh Skin: 0=Smooth Skin COWS Score: 7 [facility] Progress Note (SOAP) Subjective: Sweating, Tremors, Anxious. Objective: PATIENT A & O X 3. IN NO ACUTE DISTRESS. 09/14/19 16:27 Vital Signs Temperature 97.1 F L 09/14/19 13:44 Pulse Rate 86 09/14/19 13:44 Respiratory Rate 16 09/14/19 13:44 Blood Pressure 100/59 L 09/14/19 13:44 O2 Sat by Pulse Oximetry (%) RESULTS OF DETOX ADMISSION LABS PENDING. Assessment: 09/14/19 16:29 WITHDRAWAL SYMPTOMS. Plan: CONTINUE DETOX.
[2019-09-14] MEDS ORDERED: THIAMINE HCL 100 MG TABLET (FP) PO SCH (22:00)
[2019-09-15] MEDS ORDERED: diazePAM 5 MG TABLET PO SCH (06:00)
[2019-09-15] MEDS ORDERED: METHADONE HCL 5 MG TABLET (FOR DETOX USE ONLY) PO ONE (10:00)
[2019-09-15] MEDS: PRENATAL VITAMINS W/ FOLIC ACID TABLET (FP) PO SCH (11:05)
[2019-09-15] MEDS: TOLNAFTATE 1% CREAM 15 GM TUBE TP SCH (11:05)
[2019-09-15 12:15] LABS: HEMATOCRIT 38.4 % (35.4-49); HEMOGLOBIN 13.1 GM/dL (11.7-16.9); MCH 30.2 pg (25.7-33.7); MCHC 34.2 g/dl (32.0-35.9); MEAN CELL VOLUME 88.5 fl (80-96); MEAN PLT VOLUME 7.6 fl (7.5-11.1); PLATELET COUNT 284 K/MM3 (134-434); RBC 4.34 M/mm3 (4.00-5.60); RDW 12.7 % (11.9-15.9); WHITE BLOOD COUNT 8.8 K/mm3 (4.0-10.0)
[2019-09-15 12:37] LABS: ALBUMIN 2.9 g/dl (3.4-5.0); BILIRUBIN,TOTAL 0.3 mg/dL (0.2-1); BLOOD UREA NITROGEN 13.6 mg/dL (7-18); CALCIUM 8.6 mg/dL (8.5-10.1); CREATININE 0.9 mg/dL (0.55-1.3); POTASSIUM 3.7 mmol/L (3.5-5.1)
[2019-09-15] MEDS ORDERED: cloNIDine HCL 0.1 MG TABLET PO PRN (13:47)
--- NOTE | 2019-09-15 13:48 | PN ---
[facility] CIWA - CIWA Score Nausea/Vomitin-Mild Nausea/No Vomiting Muscle Tremors: 4-Moderate,w/Arms Extend Anxiety: 2 Agitation: 2 Paroxysmal Sweats: 3 Orientation: 0-Oriented Tacttile Disturbances: 0-None Auditory Disturbances: 0-None Visual Disturbances: 0-None Headache: 0-None Present CIWA-Ar Total Score: 12 S COWS - Scale Resting Pulse: 0= [place] 80 or Below Sweatin= Chills/Flushing Restless Observation: 3= Extraneous Movement Pupil Size: 0= Normal to Room Light Bone or Joint Aches: 2= Severe Diffuse Aches Runny Nose/ Eye Tearin= None GI Upset > 30mins: 2= Nausea/Diarrhea Tremor Observation of Outstretched Hands: 2= Slight Tremor Visible Yawning Observation: 0= None Anxiety or Irritability: 2=Irritable/Anxious Goose Flesh Skin: 0=Smooth Skin COWS Score: 12 [facility] Progress Note (SOAP) Subjective: Feels ok, medication working ok Objective: 09/15/19 13:44 Last Vital Signs Temp Pulse Resp BP Pulse Ox 98.1 F 68 18 159/113 H 09/15/19 06:35 09/15/19 06:35 09/15/19 06:35 09/15/19 06:35 Elevated b/p 159/113 noted; refused repeat vs (denies htn) Laboratory Tests 09/15/19 09/15/19 09/15/19 07:35 07:35 07:35 WBC 8.8 RBC 4.34 Hgb 13.1 Hct 38.4 MCV 88.5 MCH 30.2 MCHC 34.2 RDW 12.7 Plt Count 284 D MPV 7.6 Sodium 143 Potassium 3.7 Chloride 110 H Carbon Dioxide 28 Anion Gap 5 L BUN 13.6 Creatinine 0.9 Est GFR (CKD-EPI)AfAm 111.05 Est GFR (CKD-EPI)NonAf 95.81 Random Glucose 86 Calcium 8.6 Total Bilirubin 0.3 AST 10 L ALT 16 Alkaline Phosphatase 62 Total Protein 6.0 L Albumin 2.9 L HIV 1&2 Antibody Screen Negative HIV P24 Antigen Negative Labs reviewed: albumin 2.9 (low), total protein 6.0 (low) Assessment: 09/15/19 13:46 Withdrawal sxs Noted with elevated b/p and hypoalbuminemia Plan: Continue detox Encouraged PO water intake Elevated b/p: (denies htn), most likely from withdrawal, monitor b/p, start clonidine 0.1mg PO q8h prn if b/p > 140/90 Hypoalbuminemia: encouraged diet, start ensure 1 cup PO TID
--- NOTE | 2019-09-15 17:00 | PN ---
[facility] Progress Note Note: patient did not want to continue treatment,,all attempts to convince patient to stay with no avail,risk of relapsing is high,patient signed releasea ama, advise to call 911 if any problem
--- NOTE | 2019-09-15 17:02 | DS ---
[facility] Detox Discharge Summary Admission Date: 09/14/19 Discharge Date: 09/15/19 - History Present History: Alcohol Dependence, Opioid Dependence Additional Comments: patient left ama - Physical Exam Results Vital Signs: Vital Signs Temperature 98.1 F 09/15/19 06:35 Pulse Rate 68 09/15/19 06:35 Respiratory Rate 18 09/15/19 06:35 Blood Pressure 159/113 H 09/15/19 06:35 O2 Sat by Pulse Oximetry (%) Pertinent Admission Physical Exam Findings: withdrawal signs and symptom - Medication Discharge Medications: Ambulatory Orders NK [No Known Home Medication] 02/05/18 - Diagnosis (1) Opioid dependence with withdrawal Current Visit: Yes Status: Acute (2) Alcohol dependence with uncomplicated withdrawal Current Visit: No Status: Acute (3) Nicotine dependence Current Visit: No Status: Chronic Qualifiers: Nicotine product type: cigarettes Substance use status: in remission Qualified Code(s): F17.211 - Nicotine dependence, cigarettes, in remission - AMA Did Patient Leave Against Medical Advice: Yes
[2019-09-15 17:55] VITALS: BP 148/70; PULSE 80; TEMP 97.7
[2019-09-16] MEDS ORDERED: diazePAM 5 MG TABLET PO ONE (06:00)
[2019-09-16] MEDS ORDERED: METHADONE HCL 10 MG TABLET (FOR DETOX USE ONLY) PO ONE (10:00)
[2019-09-17] MEDS ORDERED: METHADONE HCL 5 MG TABLET (FOR DETOX USE ONLY) PO ONE (06:00)
== END 2019-09-15 17:17 | disposition left against medical advice (07) | DRG 770 ==
LOC: YASAS 01:36 → Y6N 03:42
PROVIDERS: ADMIT Surgery; ATTEND Surgery
PROC: HZ2ZZZZ Detoxification Services for Substance Abuse Treatment (ICD-10-PCS; principal; 2019-09-14)
DX: F10.230 Alcohol dependence with withdrawal, uncomplicated (principal); F11.23 Opioid dependence with withdrawal; F17.210 Nicotine dependence, cigarettes, uncomplicated; E88.09 Other disorders of plasma-protein metabolism, not elsewhere classified; R01.1 Cardiac murmur, unspecified; R03.0 Elevated blood-pressure reading, without diagnosis of hypertension
CPT/HCPCS: 36415; 80053; 85027; 87389

== ENCOUNTER 2020-04-23 12:47 | Inpatient (IN) | payer OTHER ==
[2020-04-23 13:08] VITALS: BMI 21.6
--- NOTE | 2020-04-23 13:18 | PDOC ---
History of Present Illness - General Chief Complaint: Overdose Stated Complaint: Overdose Time Seen by Provider: 04/23/20 13:16 - History of Present Illness Initial Comments: 54y/o M w/ history of mutiple opioid-related OD admissions p/w acute overdose on inhaled heroin. Reports he snorted heroin this morning, threw up, and then passed out. Does not recall getting to the hospital. He was given naloxone by EMS and responded well to naloxone. Denies cough, CP, SOB. Takes no meds. PMH uto from pt PSH uto from pt SHx snorts heroin (ukn amount) and smokes cigarettes (ukn amount per day). denies EtOH, meth, marijuana use Lives in a group home. ROS negative. PE: lean male, somnolent but arousable in NAD AA/O x3. Follows commands. Neuro: moves all extremities Eyes miotic but reactive Lungs: CTAB Heart: normal rate, regular rhythm w/o murmurs ABD: +RLQ tenderness, -CVA tenderness Assessment: 54yo male PMH multiple opioid OD p/w acute opioid intoxication. Responded well to naloxone . Plan: CXR (aspiration) CBC (infection, aspiration, appy) CMP (electrolyte) POCUS (ABD) genital exam (RLQ pain) interested in inpatient detox 04/23/20 13:49 Past History - Medical History Allergies/Adverse Reactions: Allergies Allergy/AdvReac Type Severity Reaction Status Date / Time shrimp Allergy Severe Hives Verified 04/23/20 13:15 Home Medications: Ambulatory Orders Folic Acid - 1 mg PO DAILY tablet 04/24/20 Multivitamins [Multivit ([facility] Formulary)] 1 tab PO DAILY tab 04/24/20 Thiamine HCl [Vitamin B1 -] 100 mg PO DAILY tablet 04/24/20 Anemia: No Asthma: No Cancer: No Cardiac Disorders: No CVA: No COPD: No CHF: No Dementia: No Diabetes: No GI Disorders: No Disorders: No HTN: No Hypercholesterolemia: No Kidney Stones: No Liver Disease: No Seizures: No Thyroid Disease: No - Surgical History Abdominal Surgery: No Appendectomy: No Cardiac Surgery: No Cholecystectomy: No Lung Surgery: No Neurologic Surgery: No Orthopedic Surgery: No - Reproductive History Testicular Surgery: No - Psycho-Social/Smoking History Smoking History: Current every day smoker Have you smoked in the past 12 months: Yes Number of Cigarettes Smoked Daily: 10 Cigars Per Day: 0 Information on smoking cessation initiated: Yes 'Breaking Loose' booklet given: 09/14/19 - Substance Abuse Hx (Audit-C & DAST Scrn) How often the patient has a drink containing alcohol: Never Score: In Men: 4 or > Positive; In Women: 3 or > Positive: 0 Screen Result (Pos requires Nsg. Audit-10AR): Negative In the last yr the pt used illegal drug/Rx for NonMed reason: Yes Score: Yes response is considered Positive: 1 Screen Result (Positive result requires Nsg. DAST-10): Positive *Physical Exam - Vital Signs Last Vital Signs Temp Pulse Resp BP Pulse Ox 98.3 F 79 16 147/106 H 97 04/23/20 13:04 04/23/20 13:04 04/23/20 13:04 04/23/20 13:04 04/23/20 13:04 ED Treatment Course - LABORATORY CBC & Chemistry Diagram: 04/24/20 05:40 04/24/20 05:40 Discharge - Discharge Information Problems reviewed: Yes Clinical Impression/Diagnosis: Heroin overdose Qualifiers: Encounter type: subsequent encounter Condition: Stable Disposition: AGAINST MEDICAL ADVICE - Follow up/Referral - Patient Discharge Instructions - Post Discharge Activity
[2020-04-23] MEDS ORDERED: SODIUM CHLORIDE 0.9% 500 ML INFUS.BAG IV ONE (14:13)
[2020-04-23 14:46] LABS: BASO % 0.3 % (0-2.0); EOS % 2.3 % (0-4.5); HEMATOCRIT 36.5 % (35.4-49); HEMOGLOBIN 12.1 GM/dL (11.7-16.9); LYMPH % 20.1 % (8-40); MCH 29.7 pg (25.7-33.7); MCHC 33.3 g/dl (32.0-35.9); MEAN CELL VOLUME 89.2 fl (80-96); MEAN PLT VOLUME 6.8 fl (7.5-11.1); MONO % 7.1 % (3.8-10.2); NEUT % 70.2 % (42.8-82.8); PLATELET COUNT 226 K/MM3 (134-434); RBC 4.08 M/mm3 (4.00-5.60); RDW 13.2 % (11.9-15.9); WHITE BLOOD COUNT 7.7 K/mm3 (4.0-10.0)
[2020-04-23 15:04] LABS: URINE APPEARANCE CLEAR; URINE BILIRUBIN NEGATIVE (NEGATIVE); URINE COLOR YELLOW; URINE GLUCOSE (UA) NEGATIVE (NEGATIVE); URINE KETONE NEGATIVE (NEGATIVE); URINE LEUK ESTERASE NEGATIVE (NEGATIVE); URINE NITRITE NEGATIVE (NEGATIVE); URINE PROTEIN NEGATIVE (NEGATIVE)
[2020-04-23 15:07] LABS: ALBUMIN 3.2 g/dl (3.4-5.0); BILIRUBIN,TOTAL 0.2 mg/dL (0.2-1); BLOOD UREA NITROGEN 12.9 mg/dL (7-18); CALCIUM 8.8 mg/dL (8.5-10.1); CREATININE 1.2 mg/dL (0.55-1.3); POTASSIUM 3.6 mmol/L (3.5-5.1); TOT PROT 6.3 g/dl (6.4-8.2)
--- NOTE | 2020-04-23 15:40 | PDOC ---
Documentation entered by Sarah Davis SCRIBE, acting as scribe for Erma Parada MD. Erma Parada MD: This documentation has been prepared by the Sohan rosas Nirvannie, SCRIBE, under my direction and personally reviewed by me in its entirety. I confirm that the documentation accurately reflects all work, treatment, procedures, and medical decision making performed by me. Attending Attestation - Resident Resident Name: Dante Moss - ED Attending Attestation I have performed the following: I have examined & evaluated the patient, The case was reviewed & discussed with the resident, I agree w/resident's findings & plan, Exceptions are as noted - HPI HPI: 04/23/20 14:54 The patient is a 54 year old male with a significant past medical history of heroin abuse (multiple ODs) who presents to the ED with possible heroin overdose. Per patient, he snorted heroin this morning, had an episode of emesis, then syncopizied. Patient is unaware of how he was brought to the hospital. Colette ross was given Narcan twice en route. - Physicial Exam PE: 04/23/20 15:33 Agree with resident exam. Patient is sommulent but arousable to loud voice. No external signs of trauma. Abdomen is soft, non distended, + mild suprapubic tenderness. 04/23/20 15:34 - Medical Decision Making 04/23/20 15:38 Agree with resident exam. Pt presents to the Ed intoxicated after abusing heroin. Given narcan in the field. No signs of trauma. Will continue to monitor and hold for sobriety. Discharge - Discharge Information Problems reviewed: Yes Clinical Impression/Diagnosis: Heroin overdose Condition: Stable Disposition: AGAINST MEDICAL ADVICE - Follow up/Referral - Patient Discharge Instructions - Post Discharge Activity
[2020-04-23] MEDS ORDERED: NALOXONE HCL 0.4 MG/ML VIAL ONE ×2 (17:47→19:44)
[2020-04-23] MEDS ORDERED: NALOXONE HCL 0.4 MG/ML VIAL IVPUSH ONE (18:15)
[2020-04-23] MEDS ORDERED: ONDANSETRON 4 MG/2 ML VIAL IVPUSH ONE (18:15)
--- NOTE | 2020-04-23 19:18 | PDOC ---
*Physical Exam - Vital Signs Last Vital Signs Temp Pulse Resp BP Pulse Ox 98.3 F 65 17 138/98 100 04/23/20 13:04 04/23/20 17:50 04/23/20 17:50 04/23/20 17:40 04/23/20 17:50 - Physical Exam 04/23/20 19:12 Gen: sleepy, arousable heent: pupils 2mm neck: supple heart: +s1s2 reg lungs: cta b/l abd: soft, nt/nd +bs ext: no c/c/e ED Treatment Course - LABORATORY CBC & Chemistry Diagram: 04/23/20 14:20 04/23/20 14:20 - ADDITIONAL ORDERS Additional order review: Laboratory Results 04/23/20 04/23/20 04/23/20 14:53 14:31 14:20 Sodium 144 Potassium 3.6 Chloride 108 H Carbon Dioxide 29 Anion Gap 6 L BUN 12.9 Creatinine 1.2 Est GFR (CKD-EPI)AfAm 78.43 Est GFR (CKD-EPI)NonAf 67.67 POC Glucometer 111 Random Glucose 96 Calcium 8.8 Total Bilirubin 0.2 AST 21 ALT 24 Alkaline Phosphatase 72 Total Protein 6.3 L Albumin 3.2 L Urine Color Yellow Urine Appearance Clear Urine pH 6.0 Ur Specific [place] 1.021 Urine Protein Negative Urine Glucose (UA) Negative Urine Ketones Negative Urine Blood Negative Urine Nitrite Negative Urine Bilirubin Negative Urine Urobilinogen 1.0 Ur Leukocyte Esterase Negative 04/23/20 04/23/20 14:31 14:20 RBC 4.08 MCV 89.2 MCHC 33.3 RDW 13.2 MPV 6.8 L D Neutrophils % 70.2 Lymphocytes % 20.1 Monocytes % 7.1 Eosinophils % 2.3 Basophils % 0.3 POC Glucometer 111 - Medications Given in the ED: ED Medications Discontinued Medications Generic Name Dose Route Start Last Admin Trade Name Freq PRN Reason Stop Dose Admin Naloxone HCl 0.4 mg 04/23/20 18:15 04/23/20 17:50 Narcan - IVPUSH 04/23/20 18:16 0.4 mg ONCE ONE Administration Ondansetron HCl 4 mg 04/23/20 18:15 04/23/20 17:50 Zofran Injection IVPUSH 04/23/20 18:16 4 mg ONCE ONE Administration Sodium Chloride 1,000 ml 04/23/20 14:13 04/23/20 14:34 Normal Saline - IV 04/23/20 14:14 1,000 ml ONCE ONE Administration Medical Decision Making - Medical Decision Making 04/23/20 19:18 a/p: 54yo male signed out for heroin od -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
[2020-04-23] MEDS ORDERED: NALOXONE HCL 0.4 MG/ML VIAL IVPUSH PRN (19:38)
--- NOTE | 2020-04-23 19:39 | PDOC ---
*Physical Exam - Vital Signs Last Vital Signs Temp Pulse Resp BP Pulse Ox 98.3 F 64 13 148/100 98 04/23/20 13:04 04/23/20 19:20 04/23/20 19:20 04/23/20 19:20 04/23/20 19:20 ED Treatment Course - LABORATORY CBC & Chemistry Diagram: 04/23/20 14:20 04/23/20 14:20 - ADDITIONAL ORDERS Additional order review: Laboratory Results 04/23/20 04/23/20 04/23/20 14:53 14:31 14:20 Sodium 144 Potassium 3.6 Chloride 108 H Carbon Dioxide 29 Anion Gap 6 L BUN 12.9 Creatinine 1.2 Est GFR (CKD-EPI)AfAm 78.43 Est GFR (CKD-EPI)NonAf 67.67 POC Glucometer 111 Random Glucose 96 Calcium 8.8 Total Bilirubin 0.2 AST 21 ALT 24 Alkaline Phosphatase 72 Total Protein 6.3 L Albumin 3.2 L Urine Color Yellow Urine Appearance Clear Urine pH 6.0 Ur Specific [place] 1.021 Urine Protein Negative Urine Glucose (UA) Negative Urine Ketones Negative Urine Blood Negative Urine Nitrite Negative Urine Bilirubin Negative Urine Urobilinogen 1.0 Ur Leukocyte Esterase Negative 04/23/20 04/23/20 14:31 14:20 RBC 4.08 MCV 89.2 MCHC 33.3 RDW 13.2 MPV 6.8 L D Neutrophils % 70.2 Lymphocytes % 20.1 Monocytes % 7.1 Eosinophils % 2.3 Basophils % 0.3 POC Glucometer 111 - Medications Given in the ED: ED Medications Discontinued Medications Generic Name Dose Route Start Last Admin Trade Name Jenny PRN Reason Stop Dose Admin Naloxone HCl 0.4 mg 04/23/20 18:15 04/23/20 17:50 Narcan - IVPUSH 04/23/20 18:16 0.4 mg ONCE ONE Administration Ondansetron HCl 4 mg 04/23/20 18:15 04/23/20 17:50 Zofran Injection IVPUSH 04/23/20 18:16 4 mg ONCE ONE Administration Sodium Chloride 1,000 ml 04/23/20 14:13 04/23/20 14:34 Normal Saline - IV 04/23/20 14:14 1,000 ml ONCE ONE Administration Medical Decision Making - Medical Decision Making 04/23/20 19:00 Pt received on s/o from Dr. Moss. Pt hx of OUD here for overdose. Plan to admit. 04/23/20 20:16 D/w Dr. Reyes who accepts the patient for admission. 04/23/20 21:18 EKG shows 61 bpm, NSR, nml axis, nml intervals, QTc 448, no ST elevation. Discharge - Discharge Information Problems reviewed: Yes Clinical Impression/Diagnosis: Heroin overdose Condition: Fair - Admission Yes - Follow up/Referral - Patient Discharge Instructions - Post Discharge Activity COWS - Scale Resting Pulse: 0= IN 80 or Below Pupil Size: 0= Normal to Room Light
[2020-04-23 19:57] LABS: METHADONE, UR NEGATIVE ng/ml (CUTOFF=300); URINE AMPHETAMINES NEGATIVE ng/ml (CUTOFF=500); URINE BENZODIAZEPINES NEGATIVE ng/ml (CUTOFF=200)
[2020-04-23 20:01] LABS: URINE BARBITURATES NEGATIVE ng/ml (CUTOFF=200)
[2020-04-23 20:03] LABS: COCAINE, UR POSITIVE ng/ml (CUTOFF=300)
[2020-04-23 20:04] LABS: OPIATES, URI POSITIVE ng/ml (CUTOFF=300); PHENCYCLIDINE,URINE POSITIVE ng/ml (CUTOFF=25)
--- NOTE | 2020-04-23 20:22 | PN ---
Teaching Attending Note Name of Resident: Eveline Reyes ATTENDING PHYSICIAN STATEMENT I saw and evaluated the patient. I reviewed the resident's note and discussed the case with the resident. I agree with the resident's findings and plan as documented. SUBJECTIVE: Patient is a 54 year old man with a PMH of Polysubstance abuse (Cocaine, Heroin, Alcohol), Tobacco use and Multiple episodes of heroin overdose who presents to the ER with possible heroin overdose. Per patient, he snorted heroin this morning, vomited and had an episode of syncope. Patient is unaware of how he was brought to the hospital. Patient was given Narcan twice en route. Lives in a Al[place] and is unemployed. Denies SOB, chest pain, head strike, dysuria, palpitations or diarrhea. No sick contacts or recent travels. Family history is unremarkable. OBJECTIVE: Somnolent but arousable Vital Signs Period Temp Pulse Resp BP Sys/Santos Pulse Ox Last 24 Hr 98.3 F 64-79 5-17 138-149/95-106 92-100 HEENT: No Jaundice, eye redness or discharge, PERRLA, EOMI. Normocephalic, atraumatic. External ears are normal and hearing is grossly intact. No nasal discharge. Neck: Supple, nontender. No palpable adenopathy or thyromegaly. No JVD Chest: Good effort. Clear to auscultation and percussion. Heart: Regular. No S3, rub or murmur Abdomen: Not distended, soft, nontender and no HSM. No rebound or guarding. Normal bowel sounds. Ext: Peripheral pulses intact. No leg edema. Skin: Warm and dry. No petechiae, rash or ecchymosis. Neuro: Somnolent but arousable. Oriented x3. CN 2-12 grossly intact. Sensation grossly intact in all four extremities and DTR are symmetric. Gait not tested for safety reasons. Psych: Appropriate mood and affect. Good insight. Home Medications Medication Instructions Recorded NK [No Known Home Medication] 02/05/18 Abnormal Lab Results 04/23/20 04/23/20 04/23/20 14:20 14:20 14:53 MPV 6.8 L D Chloride 108 H Anion Gap 6 L Total Protein 6.3 L Albumin 3.2 L Opiates Screen Positive A* Phencyclidine Screen Positive A* Cocaine Screen Positive A* Current Medications Generic Name Dose Route Start Last Admin Trade Name Freq PRN Reason Stop Dose Admin Chlordiazepoxide HCl 25 mg 04/23/20 22:32 Librium - PO 04/24/20 22:33 Q8H JASPREET Chlordiazepoxide HCl 10 mg 04/26/20 00:00 Librium - PO 04/27/20 00:00 Q12H PRN Signs/symptoms of Withdrawal Chlordiazepoxide HCl 10 mg 04/23/20 22:32 Librium - PO 04/24/20 22:31 Q8H PRN Signs/symptoms of Withdrawal Chlordiazepoxide HCl 15 mg 04/25/20 05:00 Librium - PO 04/25/20 21:01 Q8H JASPREET Chlordiazepoxide HCl 10 mg 04/26/20 05:00 Librium - PO 04/26/20 21:01 Q8H JASPREET Chlordiazepoxide HCl 10 mg 04/27/20 05:00 Librium - PO 04/27/20 05:01 ONCE ONE Enoxaparin Sodium 40 mg 04/24/20 10:00 Lovenox - SQ DAILY [facility] Folic Acid 1 mg 04/24/20 10:00 Folic Acid - PO DAILY [facility] Sodium Chloride 1,000 mls @ 75 mls/hr 04/23/20 23:30 Normal Saline - IV ASDIR [facility] Multivitamins/Minerals/Vitamin C 1 tab 04/24/20 10:00 Tab-A-Vit - PO DAILY [facility] Naloxone HCl 0.4 mg 04/23/20 19:38 04/23/20 19:47 Narcan - IVPUSH 0.4 mg ONCE PRN Administration WITHDRAWAL(CONT SUBST) Thiamine HCl 100 mg 04/24/20 10:00 Vitamin B1 - PO DAILY [facility] ASSESSMENT AND PLAN: 1. Heroin overdose/Polysubstance abuse - Noted to be somnolent but arousable on arrival. ER staff prescribed multiple doses of Narcan, Zofran and IV NS for the patient. CXR shows increased interstitial markings most marked in the RLL and elevated right hemidiaphragm. Urine toxicology showed opiates, phencyclidine and cocaine. EKG shows NSR at 61/minute and QTc [address]-T wave changes. Will admit to telemetry and monitor for drug withdrawal and continue Narcan PRN. Implement [facility] librium alcohol withdrawal protocol and do neurochecks. Implement seizure, fall and aspiration precautions. Treat with IV Banana bag, thiamine and folic acid. Monitor and replete electrolytes (Ca,Mg,K,P). Counseled patient about abstaining from illicit drugs/alcohol. Will consult facility practice specialist and refer to alcohol/drug detox upon discharge. Viral testing for COVID-19 ordered and patient placed on airborne, droplet and contact isolation. Will continue comprehensive care for all of patients comorbid conditions. 2. Hypoalbuminemia - Possibly due to combined effects of malnutrition and inflammation associated with comorbid conditions. Will ensure adequate dietary protein intake and also consult cmv driver. 3. Tobacco Use Counseled on risks associated with tobacco use. We will provide patient all the necessary assistance to facilitate smoking cessation and prescribe Nicotine patch. 4. DVT prophylaxis - Lovenox 40 mg SQ q 24 hours. 5. Advance directives - Full code
[2020-04-23] MEDS ORDERED: chlordiazePOXIDE HCL 10 MG CAPSULE PO PRN (22:32)
--- NOTE | 2020-04-23 22:57 | HP ---
CHIEF COMPLAINT: resp depression/ heroin overdose PCP: none HISTORY OF PRESENT ILLNESS: 54 y.o. M PMH polysubstance abuse (heroin, EtOH, cocaine, PCP, nicotine) BIBEMS for lethargy, respiratory depression 2/2 heroin overdose. The patient was initially unable to provide a history to ED staff but his sister was present at bedside. Patient has had multiple overdoses in the past, multiple narcan administrations. In the ED IV 4mg Narcan was administered x 2 after which patient became alert, respirations improved. On my exam patient appears more awake, responsive to questions. Fully oriented. Pt was admitted for most recent detox w/ valium for EtOH withdrawal at [facility] 08/2019 however patient left AMA. On this visit patient says he is amenable to detox and potentially rehab after completing detox. ROS: + diaphoretic Currently denies chest pain/ sob/ TORIBIO/ N/V/D/constipation/ chills/ myalgias ER course was notable for: (1) Narcan 4mg IV x 2 (2) 1L NS (3) Zofran 4mg IV (4) EKG: NSR rate 61bpm. No ST-T wave chanegs. Qtc 448. Recent Travel: denies PAST MEDICAL HISTORY: as per hpi PAST SURGICAL HISTORY: denies Social History: Lives in long-term. Uninsured. Smoking: daily Alcohol: denies but have been in detox in the recent past for etoh wd Drugs: heroin (3-4 bags daily, snorts has never injected). Denies PCP or cocaine use however + u-tox Allergies shrimp Allergy (Severe, Verified 04/23/20 13:15) Hives HOME MEDICATIONS: Home Medications Medication Instructions Recorded NK [No Known Home Medication] 02/05/18 REVIEW OF SYSTEMS CONSTITUTIONAL: diaphoresis Absent: fever, chills, generalized weakness, malaise, loss of appetite, weight change HEENT: Absent: rhinorrhea, nasal congestion, throat pain, throat swelling, difficulty swallowing, mouth swelling, ear pain, eye pain, visual changes CARDIOVASCULAR: Absent: chest pain, syncope, palpitations, irregular heart rate, lightheadedness, peripheral edema RESPIRATORY: Absent: cough, shortness of breath, dyspnea with exertion, orthopnea, wheezing, stridor, hemoptysis GASTROINTESTINAL: Absent: abdominal pain, abdominal distension, nausea, vomiting, diarrhea, constipation, melena, hematochezia GENITOURINARY: Absent: dysuria, frequency, urgency, hesitancy, hematuria, flank pain, genital pain MUSCULOSKELETAL: Absent: myalgia, arthralgia, joint swelling, back pain, neck pain SKIN: Absent: rash, itching, pallor HEMATOLOGIC/IMMUNOLOGIC: Absent: easy bleeding, easy bruising, lymphadenopathy, frequent infections ENDOCRINE: Absent: unexplained weight gain, unexplained weight loss, heat intolerance, cold intolerance NEUROLOGIC: Absent: headache, focal weakness or paresthesias, dizziness, unsteady gait, seizure, mental status changes, bladder or bowel incontinence PSYCHIATRIC: Absent: anxiety, depression, suicidal or homicidal ideation, hallucinations. PHYSICAL EXAMINATION Vital Signs - 24 hr 04/23/20 04/23/20 04/23/20 13:04 13:32 16:02 Temperature 98.3 F Pulse Rate 79 Pulse Rate [ 74 Apical] Respiratory 16 16 Rate Blood Pressure 147/106 H Blood Pressure 149/95 139/101 H [Right Arm] O2 Sat by Pulse 97 97 Oximetry (%) 04/23/20 04/23/20 04/23/20 17:40 17:50 19:20 Temperature Pulse Rate Pulse Rate [ 67 65 64 Apical] Respiratory 5 L 17 13 Rate Blood Pressure Blood Pressure 138/98 148/100 [Right Arm] O2 Sat by Pulse 92 L 100 98 Oximetry (%) 04/23/20 22:11 Temperature 98.6 F Pulse Rate Pulse Rate [ 69 Apical] Respiratory 16 Rate Blood Pressure Blood Pressure 136/86 [Right Arm] O2 Sat by Pulse 97 Oximetry (%) GENERAL: Awake, alert, and fully oriented, in no acute distress. HEENT: NCAT. Conjunctiva injected. LUNGS: CTABL. No wheezes, and no crackles. No accessory muscle use. HEART: RRR, normal S1 and S2 without murmur, rub or gallop. ABDOMEN: Soft, ntnd, + bowel sounds, no guarding, no rebound, no masses. EXTREMITIES: 2+ pulses, warm, well-perfused. No calf tenderness. No peripheral edema. NEUROLOGICAL: Cranial nerves II-XII intact. Normal speech. Normal gait. PSYCHIATRIC: Appropriate mood and affect. SKIN: Warm, dry, no rashes or lesions noted Laboratory Results - last 24 hr 04/23/20 04/23/20 04/23/20 14:20 14:20 14:31 WBC 7.7 RBC 4.08 Hgb 12.1 Hct 36.5 MCV 89.2 MCH 29.7 MCHC 33.3 RDW 13.2 Plt Count 226 D MPV 6.8 L D Absolute Neuts (auto) 5.4 Neutrophils % 70.2 Lymphocytes % 20.1 Monocytes % 7.1 Eosinophils % 2.3 Basophils % 0.3 Nucleated RBC % 0 Sodium 144 Potassium 3.6 Chloride 108 H Carbon Dioxide 29 Anion Gap 6 L BUN 12.9 Creatinine 1.2 Est GFR (CKD-EPI)AfAm 78.43 Est GFR (CKD-EPI)NonAf 67.67 POC Glucometer 111 Random Glucose 96 Calcium 8.8 Total Bilirubin 0.2 AST 21 ALT 24 Alkaline Phosphatase 72 Total Protein 6.3 L Albumin 3.2 L Urine Color Urine Appearance Urine pH Ur Specific [place] Urine Protein Urine Glucose (UA) Urine Ketones Urine Blood Urine Nitrite Urine Bilirubin Urine Urobilinogen Ur Leukocyte Esterase Opiates Screen Methadone Screen Barbiturate Screen Phencyclidine Screen Ur Amphetamines Screen MDMA (Ecstasy) Screen Benzodiazepines Screen Cocaine Screen U Marijuana (THC) Screen Alcohol, Quantitative 04/23/20 04/23/20 04/23/20 14:53 14:53 19:25 WBC RBC Hgb Hct MCV MCH MCHC RDW Plt Count MPV Absolute Neuts (auto) Neutrophils % Lymphocytes % Monocytes % Eosinophils % Basophils % Nucleated RBC % Sodium Potassium Chloride Carbon Dioxide Anion Gap BUN Creatinine Est GFR (CKD-EPI)AfAm Est GFR (CKD-EPI)NonAf POC Glucometer Random Glucose Calcium Total Bilirubin AST ALT Alkaline Phosphatase Total Protein Albumin Urine Color Yellow Urine Appearance Clear Urine pH 6.0 Ur Specific [place] 1.021 Urine Protein Negative Urine Glucose (UA) Negative Urine Ketones Negative Urine Blood Negative Urine Nitrite Negative Urine Bilirubin Negative Urine Urobilinogen 1.0 Ur Leukocyte Esterase Negative Opiates Screen Positive A* Methadone Screen Negative Barbiturate Screen Negative Phencyclidine Screen Positive A* Ur Amphetamines Screen Negative MDMA (Ecstasy) Screen Negative Benzodiazepines Screen Negative Cocaine Screen Positive A* U Marijuana (THC) Screen Negative Alcohol, Quantitative < 3 ASSESSMENT/PLAN: 54 y.o. M PMH polysubstance abuse (heroin, EtOH, cocaine, PCP, nicotine) BIBEMS for lethargy, respiratory depression. Admitted for heroin overdose. #Heroin overdose -s/p 2 doses 4mg IV narcan w/ improvement of respiratory status -not requiring O2 supplementation at this time; cont to monitor -COWS score 7 on my exam -Addiction medicine Dr. Huggins consulted -monitor for signs of withdrawal #EtOH abuse -alcohol level negative -librium moderate protocol -CIWA checks -multivitamin, folic acid, thiamine -fall, aspiration, seizure precautions #PCP use -monitor for signs of aggression -patient denies taking however + utox #FEN -NS @75cc/hr -monitor & replete lytes prn -regular diet #PPX -lovenox 40sq daily #Dispo med surg Visit type - Emergency Visit Emergency Visit: Yes ED Registration Date: 04/23/20 Care time: The patient presented to the Emergency Department on the above date and was hospitalized for further evaluation of their emergent condition. - New Patient This patient is new to me today: Yes Date on this admission: 04/24/20 - Critical Care Critical Care patient: No ATTENDING PHYSICIAN STATEMENT I saw and evaluated the patient. I reviewed the resident's note and discussed the case with the resident. I agree with the resident's findings and plan as documented. SUBJECTIVE: OBJECTIVE: ASSESSMENT AND PLAN:
[2020-04-23] MEDS ORDERED: chlordiazePOXIDE HCL 25 MG CAPSULE ONE (23:29)
[2020-04-23] MEDS ORDERED: SODIUM CHLORIDE 1,000 ML IV SCH (23:30)
[2020-04-23] MEDS: chlordiazePOXIDE HCL 25 MG CAPSULE PO SCH (23:38)
[2020-04-24 06:12] LABS: HEMATOCRIT 35.6 % (35.4-49); HEMOGLOBIN 11.9 GM/dL (11.7-16.9); MCH 29.6 pg (25.7-33.7); MCHC 33.4 g/dl (32.0-35.9); MEAN CELL VOLUME 88.9 fl (80-96); MEAN PLT VOLUME 7.3 fl (7.5-11.1); PLATELET COUNT 238 K/MM3 (134-434); RBC 4.01 M/mm3 (4.00-5.60); RDW 12.9 % (11.9-15.9); WHITE BLOOD COUNT 6.7 K/mm3 (4.0-10.0)
[2020-04-24 06:24] LABS: ALBUMIN 2.7 g/dl (3.4-5.0); BILIRUBIN,TOTAL 0.5 mg/dL (0.2-1); BLOOD UREA NITROGEN 14.6 mg/dL (7-18); CALCIUM 8.2 mg/dL (8.5-10.1); PHOSPHOROUS 3.4 mg/dL (2.5-4.9); POTASSIUM 3.5 mmol/L (3.5-5.1); TOT PROT 5.5 g/dl (6.4-8.2)
[2020-04-24] MEDS ORDERED: chlordiazePOXIDE HCL 25 MG CAPSULE ONE (06:42)
[2020-04-24] MEDS: chlordiazePOXIDE HCL 25 MG CAPSULE PO SCH (06:44)
[2020-04-24] MEDS ORDERED: FOLIC ACID 1 MG TABLET (FP) PO SCH (10:00)
[2020-04-24] MEDS ORDERED: MULTIVITAMINS (DAILY MVI) TABLET (FP) PO SCH (10:00)
[2020-04-24] MEDS ORDERED: THIAMINE HCL 100 MG TABLET (FP) PO SCH (10:00)
[2020-04-24] MEDS ORDERED: ENOXAPARIN NA (PORCINE) 40 MG/0.4 ML DISP.SYRIN SQ SCH (10:00)
--- NOTE | 2020-04-24 10:43 | EKG ---
Test Reason : Blood Pressure : / mmHG Vent. Rate : 061 BPM Atrial Rate : 061 BPM P-R Int : 148 ms QRS Dur : 088 ms QT Int : 446 ms P-R-T Axes : 078 036 033 degrees QTc Int : 448 ms NORMAL SINUS RHYTHM NORMAL ECG WHEN COMPARED WITH ECG OF 23-APR-2020 13:03, NO SIGNIFICANT CHANGE WAS FOUND Confirmed by WINSOME ANGULO MD ([id number]) on 04/24/2020 10:42:43 AM Referred By: Confirmed By:WINSOME ANGULO MD
[2020-04-24 14:12] VITALS: BP 145/87; PULSE 75; TEMP 98.6
--- NOTE | 2020-04-24 15:00 | DS ---
Physical Exam: SUBJECTIVE: Patient seen and examined at bedside this morning. Patient admitted overnight after heroin overdose. Received Narcan on the field. Consulted digital advertising specialist, Dr. Crocker, recommended transfer to [facility] for evaluation and possible detox. Patient has initially been agreeable for transfer, but then changed his mind. EMS came in twice, but eventually patient opted to sign for AMA as he refuses to go to [facility]. OBJECTIVE: Vital Signs Temperature 98.6 F 04/24/20 14:09 Pulse Rate 75 04/24/20 14:09 Respiratory Rate 18 04/24/20 14:09 Blood Pressure 145/87 04/24/20 14:09 O2 Sat by Pulse Oximetry (%) 96 04/24/20 10:25 PHYSICAL EXAM GENERAL: Awake, alert, and fully oriented, in no acute distress. HEENT: NCAT. Conjunctiva injected. LUNGS: CTABL. No wheezes, and no crackles. No accessory muscle use. HEART: RRR, normal S1 and S2 without murmur, rub or gallop. ABDOMEN: Soft, ntnd, + bowel sounds, no guarding, no rebound, no masses. EXTREMITIES: 2+ pulses, warm, well-perfused. No calf tenderness. No peripheral edema. NEUROLOGICAL: Cranial nerves II-XII intact. Normal speech. Normal gait. PSYCHIATRIC: Appropriate mood and affect. SKIN: Warm, dry, no rashes or lesions noted LABS Laboratory Results - last 24 hr 04/23/20 04/23/20 04/23/20 14:20 14:53 14:53 WBC RBC Hgb Hct MCV MCH MCHC RDW Plt Count MPV Sodium 144 Potassium 3.6 Chloride 108 H Carbon Dioxide 29 Anion Gap 6 L BUN 12.9 Creatinine 1.2 Est GFR (CKD-EPI)AfAm 78.43 Est GFR (CKD-EPI)NonAf 67.67 Random Glucose 96 Calcium 8.8 Phosphorus Magnesium Total Bilirubin 0.2 AST 21 ALT 24 Alkaline Phosphatase 72 Total Protein 6.3 L Albumin 3.2 L Urine Color Yellow Urine Appearance Clear Urine pH 6.0 Ur Specific [place] 1.021 Urine Protein Negative Urine Glucose (UA) Negative Urine Ketones Negative Urine Blood Negative Urine Nitrite Negative Urine Bilirubin Negative Urine Urobilinogen 1.0 Ur Leukocyte Esterase Negative Opiates Screen Positive A* Methadone Screen Negative Barbiturate Screen Negative Phencyclidine Screen Positive A* Ur Amphetamines Screen Negative MDMA (Ecstasy) Screen Negative Benzodiazepines Screen Negative Cocaine Screen Positive A* U Marijuana (THC) Screen Negative Alcohol, Quantitative 04/23/20 04/24/20 04/24/20 19:25 05:40 05:40 WBC 6.7 RBC 4.01 Hgb 11.9 Hct 35.6 MCV 88.9 MCH 29.6 MCHC 33.4 RDW 12.9 Plt Count 238 MPV 7.3 L Sodium 144 Potassium 3.5 Chloride 110 H Carbon Dioxide 26 Anion Gap 7 L BUN 14.6 Creatinine 1.0 Est GFR (CKD-EPI)AfAm 97.77 Est GFR (CKD-EPI)NonAf 84.35 Random Glucose 90 Calcium 8.2 L Phosphorus 3.4 Magnesium 2.0 Total Bilirubin 0.5 AST 18 ALT 18 Alkaline Phosphatase 52 Total Protein 5.5 L Albumin 2.7 L Urine Color Urine Appearance Urine pH Ur Specific [place] Urine Protein Urine Glucose (UA) Urine Ketones Urine Blood Urine Nitrite Urine Bilirubin Urine Urobilinogen Ur Leukocyte Esterase Opiates Screen Methadone Screen Barbiturate Screen Phencyclidine Screen Ur Amphetamines Screen MDMA (Ecstasy) Screen Benzodiazepines Screen Cocaine Screen U Marijuana (THC) Screen Alcohol, Quantitative < 3 HOSPITAL COURSE: Date of Admission:04/23/20 Date of Discharge: 04/24/20 54 y.o. M PMH polysubstance abuse (heroin, EtOH, cocaine, PCP, nicotine) BIBEMS for lethargy, respiratory depression. Admitted for heroin overdose. #Polysubstance abuse (Heroin, Narcan, PCP) -s/p 2 doses 4mg IV narcan w/ improvement of respiratory status -not requiring O2 supplementation at this time; cont to monitor -extracorporeal circulation specialist, Dr. Crocker, consulted, recommended transfer to [facility] for detox Patient refused to go to [facility] with EMS, and signed out AMA. Minutes to complete discharge: 40 Discharge Summary Problems reviewed: Yes Reason For Visit: COCAINE DEPENDENCE,OPIOD DEPENDENCE, OVERDOSE OF Current Active Problems Heroin overdose (Acute) Condition: Stable - Instructions Diet, Activity, Other Instructions: Your visit You were admitted to the hospital because you passed out likely caused by the heroin use. You were given Narcan and you improved. You are now stable for discharge to [facility] for detox. Follow up Please follow up with your primary care doctor within 1 week. Additional info Please call 911 or go to the ED if with any worsening fevers, chills, headache, dizziness, chest pain, shortness of breath, belly pain or any new concerns noted Referrals: [facility] [place] [facility] [place] [Provider Group] Disposition: AGAINST MEDICAL ADVICE - Home Medications Comprehensive Discharge Medication List: Ambulatory Orders Folic Acid - 1 mg PO DAILY tablet 04/24/20 Multivitamins [Multivit ([facility] Form[facility])] 1 tab PO DAILY tab 04/24/20 Thiamine HCl [Vitamin B1 -] 100 mg PO DAILY tablet 04/24/20 This patient is new to me today: Yes Date on this admission: 04/24/20 Emergency Visit: Yes ED Registration Date: 04/23/20 Care time: The patient presented to the Emergency Department on the above date and was hospitalized for further evaluation of their emergent condition. Critical Care patient: No - Discharge Referral Referred to [facility] Med [facility] No ATTENDING PHYSICIAN STATEMENT I saw and evaluated the patient. I reviewed the resident's note and discussed the case with the resident. I agree with the resident's findings and plan as documented. SUBJECTIVE: OBJECTIVE: ASSESSMENT AND PLAN:
[2020-04-25] MEDS ORDERED: chlordiazePOXIDE 5 MG CAPSULE PO SCH (05:00)
[2020-04-26] MEDS ORDERED: chlordiazePOXIDE HCL 10 MG CAPSULE PO PRN
[2020-04-26] MEDS ORDERED: chlordiazePOXIDE HCL 10 MG CAPSULE PO SCH (05:00)
[2020-04-27] MEDS ORDERED: chlordiazePOXIDE HCL 10 MG CAPSULE PO ONE (05:00)
--- NOTE | 2020-04-27 10:14 | EKG ---
Test Reason : Blood Pressure : / mmHG Vent. Rate : 067 BPM Atrial Rate : 067 BPM P-R Int : 154 ms QRS Dur : 086 ms QT Int : 412 ms P-R-T Axes : 076 044 011 degrees QTc Int : 435 ms NORMAL SINUS RHYTHM NORMAL ECG WHEN COMPARED WITH ECG OF 19-NOV-2018 12:23, NO SIGNIFICANT CHANGE WAS FOUND Confirmed by Rach Wynn ([id number]) on 04/27/2020 10:13:54 AM Referred By: Confirmed By:Rach Wynn
== END 2020-04-24 19:04 | disposition left against medical advice (07) | DRG 862 ==
LOC: JER 12:47 → JERBED 19:08 → J6WEST-2 04-24 10:00
PROVIDERS: ADMIT Internal Medicine
DX: T40.1X Poisoning by and adverse effect of heroin (principal); E46 Unspecified protein-calorie malnutrition; E88.09 Other disorders of plasma-protein metabolism, not elsewhere classified; F14.20 Cocaine dependence, uncomplicated; F10.10 Alcohol abuse, uncomplicated; Y92.89 Other specified places as the place of occurrence of the external cause; F17.210 Nicotine dependence, cigarettes, uncomplicated; F11.23 Opioid dependence with withdrawal
CPT/HCPCS: 36415; 71045-TC-FY; 80053; 80307; 81003; 82962; 83735; 84100; 85025; 85027; 93005; 93010; 99285-25; U0003

== ENCOUNTER 2021-01-08 08:36 | Inpatient (IN) | payer OTHER ==
[2021-01-08 09:16] VITALS: BMI 22.4
[2021-01-08] MEDS ORDERED: MAGNESIUM HYDROX 2400MG/30ML ORAL SUSPENSION 30 ML CUP PO PRN (10:53)
[2021-01-08] MEDS ORDERED: IBUPROFEN 400 MG TABLET (FP) PO PRN (10:53)
[2021-01-08] MEDS ORDERED: MENTHOL/PHENOL 1 EACH UD MM PRN (10:53)
[2021-01-08] MEDS ORDERED: ONDANSETRON *ODT* 4 MG TABLET SL PRN (10:53)
[2021-01-08] MEDS ORDERED: METHOCARBAMOL 500 MG TABLET PO PRN (10:53)
[2021-01-08] MEDS ORDERED: NICOTINE POLACRILEX 2 MG GUM BUC PRN (10:53)
[2021-01-08] MEDS ORDERED: BISMUTH SUBSALICYLATE 524 MG/30 ML UD PO PRN (10:53)
[2021-01-08] MEDS ORDERED: chlordiazePOXIDE HCL 25 MG CAPSULE PO PRN (10:53)
[2021-01-08] MEDS ORDERED: cloNIDine HCL 0.1 MG TABLET PO PRN (10:53)
[2021-01-08] MEDS ORDERED: MAG HYDROX/AL HYDROX/SIMETH 30 ML UNIT-DOSE CUP PO PRN (10:53)
[2021-01-08] MEDS ORDERED: MAGNESIUM CITRATE 300 ML BOTTLE PO PRN (10:53)
[2021-01-08] MEDS ORDERED: ACETAMINOPHEN 325 MG TABLET (FP) PO PRN ×2 (10:53)
[2021-01-08] MEDS ORDERED: METHADONE HCL 10 MG TABLET (FOR DETOX USE ONLY) PO ONE (11:45)
[2021-01-08] MEDS: chlordiazePOXIDE HCL 25 MG CAPSULE PO SCH ×3 (12:32→23:08)
[2021-01-08] MEDS: PRENATAL VITAMINS W/ FOLIC ACID TABLET (FP) PO SCH (12:37)
[2021-01-08 14:19] LABS: HEMATOCRIT 37.1 % (35.4-49); HEMOGLOBIN 12.6 GM/dL (11.7-16.9); MCHC 33.8 g/dl (32.0-35.9); MEAN CELL VOLUME 88.6 fl (80-96); MEAN PLT VOLUME 7.7 fl (7.5-11.1); PLATELET COUNT 240 K/MM3 (134-434); RBC 4.19 M/mm3 (4.00-5.60); RDW 12.6 % (11.9-15.9); WHITE BLOOD COUNT 7.3 K/mm3 (4.0-10.0)
[2021-01-08 14:20] LABS: POTASSIUM 3.7 mmol/L (3.5-5.1)
[2021-01-08 14:23] LABS: ALBUMIN 3.3 g/dl (3.4-5.0); BLOOD UREA NITROGEN 24.4 mg/dL (7-18)
[2021-01-08 14:26] LABS: CREATININE 1.2 mg/dL (0.55-1.3)
[2021-01-08 14:28] LABS: BILIRUBIN,TOTAL 0.2 mg/dL (0.2-1); TOT PROT 6.6 g/dl (6.4-8.2)
[2021-01-08] MEDS: hydrOXYzine PAMOATE 25 MG CAPSULE (FP) PO SCH ×3 (14:58→23:08)
[2021-01-08] MEDS: MELATONIN 5 MG TABLETS PO SCH (23:08)
[2021-01-08] MEDS: THIAMINE HCL 100 MG TABLET (FP) PO SCH (23:08)
[2021-01-09] MEDS: hydrOXYzine PAMOATE 25 MG CAPSULE (FP) PO SCH ×5 (05:24→22:50)
[2021-01-09] MEDS: chlordiazePOXIDE HCL 25 MG CAPSULE PO SCH ×4 (05:24→22:51)
[2021-01-09] MEDS ORDERED: METHADONE HCL 5 MG TABLET (FOR DETOX USE ONLY) ONE (08:32)
[2021-01-09] MEDS ORDERED: METHADONE HCL 10 MG TABLET (FOR DETOX USE ONLY) ONE (08:32)
[2021-01-09] MEDS ORDERED: METHADONE (DETOX) 20 MG, METHADONE (DETOX) 5 MG PO ONE (10:00)
[2021-01-09] MEDS: NICOTINE 14 MG/24 HOURS TOPICAL PATCH TD SCH (11:14)
[2021-01-09] MEDS: PRENATAL VITAMINS W/ FOLIC ACID TABLET (FP) PO SCH (11:14)
[2021-01-09] MEDS ORDERED: PNEUMOCOCCAL 23 VACCINE 0.5 ML VIAL IM ONE (12:00)
[2021-01-09] MEDS ORDERED: FLU VACCINE (FLULAVAL) PF 60 MCG/0.5 ML SYRINGE 2020-2021 IM ONE (12:00)
[2021-01-09] MEDS ORDERED: PNEUMOC 13-VAL CONJ-DIP CRM/PF 0.5 ML DISP.SYRIN IM ONE (12:00)
[2021-01-09] MEDS ORDERED: MASKS NR ONE (22:49)
[2021-01-09] MEDS: THIAMINE HCL 100 MG TABLET (FP) PO SCH (22:50)
[2021-01-09] MEDS: MELATONIN 5 MG TABLETS PO SCH (22:50)
[2021-01-10] MEDS: chlordiazePOXIDE HCL 25 MG CAPSULE PO SCH ×4 (06:08→22:55)
[2021-01-10] MEDS: hydrOXYzine PAMOATE 25 MG CAPSULE (FP) PO SCH ×5 (06:09→22:54)
[2021-01-10] MEDS ORDERED: METHADONE HCL 10 MG TABLET (FOR DETOX USE ONLY) PO ONE (10:00)
[2021-01-10] MEDS: NICOTINE 14 MG/24 HOURS TOPICAL PATCH TD SCH (10:58)
[2021-01-10] MEDS: PRENATAL VITAMINS W/ FOLIC ACID TABLET (FP) PO SCH (10:58)
[2021-01-10] MEDS ORDERED: cloNIDine HCL 0.1 MG TABLET PO PRN (12:09)
[2021-01-10] MEDS: MELATONIN 5 MG TABLETS PO SCH (22:54)
[2021-01-10] MEDS: THIAMINE HCL 100 MG TABLET (FP) PO SCH (22:54)
[2021-01-11] MEDS ORDERED: chlordiazePOXIDE HCL 10 MG CAPSULE PO PRN
[2021-01-11] MEDS: hydrOXYzine PAMOATE 25 MG CAPSULE (FP) PO SCH ×5 (06:38→22:31)
[2021-01-11] MEDS: chlordiazePOXIDE HCL 10 MG CAPSULE PO SCH ×4 (06:39→22:30)
[2021-01-11] MEDS ORDERED: METHADONE HCL 5 MG TABLET (FOR DETOX USE ONLY) ONE (09:27)
[2021-01-11] MEDS ORDERED: METHADONE HCL 10 MG TABLET (FOR DETOX USE ONLY) ONE (09:28)
[2021-01-11] MEDS ORDERED: METHADONE (DETOX) 10 MG, METHADONE (DETOX) 5 MG PO ONE (10:00)
[2021-01-11] MEDS: NICOTINE 14 MG/24 HOURS TOPICAL PATCH TD SCH (11:06)
[2021-01-11] MEDS: PRENATAL VITAMINS W/ FOLIC ACID TABLET (FP) PO SCH (11:06)
[2021-01-11] MEDS: THIAMINE HCL 100 MG TABLET (FP) PO SCH (22:30)
[2021-01-11] MEDS: MELATONIN 5 MG TABLETS PO SCH (22:31)
[2021-01-12] MEDS: hydrOXYzine PAMOATE 25 MG CAPSULE (FP) PO SCH ×5 (06:45→23:15)
[2021-01-12] MEDS: chlordiazePOXIDE HCL 10 MG CAPSULE PO SCH ×2 (06:45→18:22)
[2021-01-12] MEDS ORDERED: METHADONE HCL 10 MG TABLET (FOR DETOX USE ONLY) PO ONE (10:00)
[2021-01-12] MEDS: PRENATAL VITAMINS W/ FOLIC ACID TABLET (FP) PO SCH (10:15)
[2021-01-12] MEDS: NICOTINE 14 MG/24 HOURS TOPICAL PATCH TD SCH (10:18)
[2021-01-12] MEDS: THIAMINE HCL 100 MG TABLET (FP) PO SCH (23:14)
[2021-01-12] MEDS: MELATONIN 5 MG TABLETS PO SCH (23:15)
[2021-01-13] MEDS ORDERED: chlordiazePOXIDE HCL 10 MG CAPSULE PO ONE (05:00)
[2021-01-13] MEDS ORDERED: METHADONE HCL 5 MG TABLET (FOR DETOX USE ONLY) PO ONE (06:00)
[2021-01-13] MEDS: hydrOXYzine PAMOATE 25 MG CAPSULE (FP) PO SCH (06:01)
[2021-01-13 09:18] VITALS: BP 146/98; PULSE 87; TEMP 98.3
== END 2021-01-13 09:15 | disposition home or self-care (01) | DRG 773 ==
LOC: YASAS 08:36 → Y6N 11:38
PROVIDERS: ADMIT Allergy & Immunology; ATTEND Allergy & Immunology
PROC: HZ2ZZZZ Detoxification Services for Substance Abuse Treatment (ICD-10-PCS; principal; 2021-01-08)
DX: F11.23 Opioid dependence with withdrawal (principal); F10.230 Alcohol dependence with withdrawal, uncomplicated; F14.20 Cocaine dependence, uncomplicated; F17.211 Nicotine dependence, cigarettes, in remission; F19.24 Other psychoactive substance dependence with psychoactive substance-induced mood disorder; R01.1 Cardiac murmur, unspecified; R73.9 Hyperglycemia, unspecified; R79.89 Other specified abnormal findings of blood chemistry; Z56.0 Unemployment, unspecified; Z59.0 Homelessness
CPT/HCPCS: 36415; 80053; 82962; 84520; 85027; 86780; C9803; J0735; U0003

== ENCOUNTER 2021-03-31 16:36 | Emergency (ER) | payer OTHER ==
[2021-03-31 16:55] VITALS: TEMP 98.6; BMI 19.5
[2021-03-31] MEDS ORDERED: LACTATED RINGERS SOLUTION 1000 ML INFUS.BAG IV ONE (16:59)
[2021-03-31 17:44] LABS: BASO % 0.5 % (0-2.0); EOS % 3.4 % (0-4.5); HEMATOCRIT 36.6 % (35.4-49); HEMOGLOBIN 12.4 GM/dL (11.7-16.9); LYMPH % 33.4 % (8-40); MCH 30.5 pg (25.7-33.7); MCHC 33.9 g/dl (32.0-35.9); MEAN CELL VOLUME 89.8 fl (80-96); MEAN PLT VOLUME 7.5 fl (7.5-11.1); MONO % 9.1 % (3.8-10.2); NEUT % 53.6 % (42.8-82.8); PLATELET COUNT 239 K/MM3 (134-434); RBC 4.08 M/mm3 (4.00-5.60); RDW 13.2 % (11.9-15.9); WHITE BLOOD COUNT 7.7 K/mm3 (4.0-10.0)
[2021-03-31 18:00] LABS: VENOUS BASE EXCESS 3.3 mmol/L (-2-2); VENOUS PCO2 58.9 mmHg (38-52); VENOUS PH 7.337 (7.310-7.410)
[2021-03-31 18:02] LABS: CHLORIDE 110 mmol/L (98-107); SODIUM 146 mmol/L (136-145)
[2021-03-31 18:04] LABS: ALBUMIN 3.5 g/dl (3.4-5.0); ANION GAP 6 MMOL/L (8-16); CALCIUM 8.8 mg/dL (8.5-10.1); CO2 31 mmol/L (21-32); GLUCOSE,RANDOM 71 mg/dL (74-106)
[2021-03-31 18:05] LABS: BLOOD UREA NITROGEN 17.5 mg/dL (7-18)
[2021-03-31 18:07] LABS: SGPT/ALT 30 U/L (13-61)
[2021-03-31 18:08] LABS: SGOT/AST 26 U/L (15-37)
[2021-03-31 18:09] LABS: BILIRUBIN,TOTAL 0.2 mg/dL (0.2-1); TOT PROT 6.7 g/dl (6.4-8.2)
[2021-03-31 18:10] LABS: ALK PHOS 87 U/L (45-117)
[2021-03-31 21:12] VITALS: BP 155/104; PULSE 71
== END 2021-04-01 02:08 | disposition home or self-care (01) ==
LOC: JER 16:36
DX: T40.1X4A Poisoning by heroin, undetermined, initial encounter (principal)
CPT/HCPCS: 36415; 70450-TC; 71045-TC-FY; 72125-TC; 80053; 80307; 82272; 82550; 82553; 82803; 82962; 83605; 84484; 85025; 93005; 93010; 99285-25; C9803; U0003; U0005

== ENCOUNTER 2021-07-21 05:23 | Inpatient (IN) | payer OTHER ==
[2021-07-21 06:14] VITALS: BMI 22.8
[2021-07-21] MEDS ORDERED: ONDANSETRON *ODT* 4 MG TABLET SL PRN (10:01)
[2021-07-21] MEDS ORDERED: ACETAMINOPHEN 325 MG TABLET (FP) PO PRN ×2 (10:01)
[2021-07-21] MEDS ORDERED: MAG HYDROX/AL HYDROX/SIMETH 30 ML UNIT-DOSE CUP PO PRN (10:01)
[2021-07-21] MEDS ORDERED: MENTHOL/PHENOL 1 EACH UD MM PRN (10:01)
[2021-07-21] MEDS ORDERED: IBUPROFEN 400 MG TABLET (FP) PO PRN (10:01)
[2021-07-21] MEDS ORDERED: METHOCARBAMOL 500 MG TABLET PO PRN (10:01)
[2021-07-21] MEDS ORDERED: MAGNESIUM CITRATE 300 ML BOTTLE PO PRN (10:01)
[2021-07-21] MEDS ORDERED: NICOTINE 10 MG CARTRIDGE (INHALER) IH PRN (10:01)
[2021-07-21] MEDS ORDERED: BISMUTH SUBSALICYLATE 524 MG/30 ML PO PRN (10:01)
[2021-07-21] MEDS ORDERED: MAGNESIUM HYDROX 2400MG/30ML ORAL SUSPENSION 30 ML CUP PO PRN (10:01)
[2021-07-21] MEDS ORDERED: cloNIDine HCL 0.1 MG TABLET PO ONE (12:45)
[2021-07-21] MEDS: hydrOXYzine PAMOATE 25 MG CAPSULE (FP) PO SCH ×4 (12:49→22:48)
[2021-07-21 13:52] LABS: HEMATOCRIT 37.9 % (35.4-49); HEMOGLOBIN 12.8 GM/dL (11.7-16.9); MCH 30.8 pg (25.7-33.7); MCHC 33.8 g/dl (32.0-35.9); MEAN CELL VOLUME 91.1 fl (80-96); MEAN PLT VOLUME 8.2 fl (7.5-11.1); PLATELET COUNT 253 10^3/uL (134-434); RBC 4.16 M/mm3 (4.00-5.60); RDW 12.7 % (11.9-15.9); WHITE BLOOD COUNT 5.4 K/mm3 (4.0-10.0)
[2021-07-21 14:06] LABS: ALBUMIN 3.1 g/dl (3.4-5.0); CALCIUM 8.8 mg/dL (8.5-10.1)
[2021-07-21 14:10] LABS: CREATININE 1.2 mg/dL (0.55-1.3)
[2021-07-21 14:11] LABS: BILIRUBIN,TOTAL 0.4 mg/dL (0.2-1); TOT PROT 6.5 g/dl (6.4-8.2)
[2021-07-21] MEDS: THIAMINE HCL 100 MG TABLET (FP) PO SCH (22:48)
[2021-07-21] MEDS: MELATONIN 5 MG TABLETS PO SCH (22:48)
[2021-07-22] MEDS: hydrOXYzine PAMOATE 25 MG CAPSULE (FP) PO SCH ×5 (05:24→22:52)
[2021-07-22] MEDS ORDERED: cloNIDine HCL 0.1 MG TABLET PO PRN (09:30)
[2021-07-22] MEDS ORDERED: diazePAM 5 MG TABLET PO PRN (09:30)
[2021-07-22] MEDS ORDERED: clonazePAM 0.5 MG ODT TABLETS SL PRN (09:30)
[2021-07-22] MEDS ORDERED: methaDONE HCL 10 MG TABLET (FOR DETOX USE ONLY) PO ONE (10:00)
[2021-07-22] MEDS: PRENATAL VITAMINS W/ FOLIC ACID TABLET (FP) PO SCH (10:35)
[2021-07-22] MEDS: diazePAM 5 MG TABLET PO SCH ×3 (10:35→22:52)
[2021-07-22] MEDS: MELATONIN 5 MG TABLETS PO SCH (22:52)
[2021-07-22] MEDS: THIAMINE HCL 100 MG TABLET (FP) PO SCH (22:54)
[2021-07-23] MEDS: hydrOXYzine PAMOATE 25 MG CAPSULE (FP) PO SCH ×5 (06:00→23:07)
[2021-07-23] MEDS: diazePAM 5 MG TABLET PO SCH ×4 (06:00→23:07)
[2021-07-23] MEDS ORDERED: methaDONE HCL 10 MG TABLET (FOR DETOX USE ONLY) ONE (09:36)
[2021-07-23] MEDS: PRENATAL VITAMINS W/ FOLIC ACID TABLET (FP) PO SCH (10:51)
[2021-07-23] MEDS: MELATONIN 5 MG TABLETS PO SCH (23:06)
[2021-07-23] MEDS: THIAMINE HCL 100 MG TABLET (FP) PO SCH (23:07)
[2021-07-24] MEDS: diazePAM 5 MG TABLET PO SCH ×3 (06:34→22:51)
[2021-07-24] MEDS: hydrOXYzine PAMOATE 25 MG CAPSULE (FP) PO SCH ×5 (06:34→22:51)
[2021-07-24] MEDS ORDERED: methaDONE HCL 10 MG TABLET (FOR DETOX USE ONLY) PO ONE (10:00)
[2021-07-24] MEDS: PRENATAL VITAMINS W/ FOLIC ACID TABLET (FP) PO SCH (10:31)
[2021-07-24] MEDS: THIAMINE HCL 100 MG TABLET (FP) PO SCH (22:51)
[2021-07-24] MEDS: MELATONIN 5 MG TABLETS PO SCH (22:51)
[2021-07-25] MEDS: diazePAM 5 MG TABLET PO SCH ×2 (05:57→18:19)
[2021-07-25] MEDS: hydrOXYzine PAMOATE 25 MG CAPSULE (FP) PO SCH ×5 (06:05→22:30)
[2021-07-25] MEDS ORDERED: methaDONE HCL 10 MG TABLET (FOR DETOX USE ONLY) ONE (08:32)
[2021-07-25] MEDS: PRENATAL VITAMINS W/ FOLIC ACID TABLET (FP) PO SCH (10:19)
[2021-07-25] MEDS: THIAMINE HCL 100 MG TABLET (FP) PO SCH (22:30)
[2021-07-25] MEDS: MELATONIN 5 MG TABLETS PO SCH (22:30)
[2021-07-26] MEDS ORDERED: diazePAM 5 MG TABLET PO ONE (06:00)
[2021-07-26] MEDS: hydrOXYzine PAMOATE 25 MG CAPSULE (FP) PO SCH (06:24)
[2021-07-26] MEDS ORDERED: hydrOXYzine PAMOATE 25 MG CAPSULE (FP) PO PRN (08:37)
[2021-07-26] MEDS ORDERED: methaDONE HCL 10 MG TABLET (FOR DETOX USE ONLY) PO ONE (10:00)
[2021-07-26] MEDS: PRENATAL VITAMINS W/ FOLIC ACID TABLET (FP) PO SCH (10:16)
[2021-07-26 17:26] VITALS: BP 114/69; PULSE 75; TEMP 96.6
== END 2021-07-26 18:54 | disposition left against medical advice (07) | DRG 770 ==
LOC: YASAS 05:23 → UNDOADMIN 11:10 → Y3N 11:10
PROVIDERS: ADMIT Allergy & Immunology; ATTEND Allergy & Immunology
PROC: HZ2ZZZZ Detoxification Services for Substance Abuse Treatment (ICD-10-PCS; principal; 2021-07-21)
DX: F11.23 Opioid dependence with withdrawal (principal); F10.230 Alcohol dependence with withdrawal, uncomplicated; F14.20 Cocaine dependence, uncomplicated; F17.210 Nicotine dependence, cigarettes, uncomplicated; F19.24 Other psychoactive substance dependence with psychoactive substance-induced mood disorder; F20.9 Schizophrenia, unspecified; F41.9 Anxiety disorder, unspecified; R01.1 Cardiac murmur, unspecified; Z59.01 Sheltered homelessness
CPT/HCPCS: 36415; 80053; 85027; 86780; C9803; J0735; U0003; U0005

== ENCOUNTER 2021-11-02 05:50 | Inpatient (IN) | payer OTHER ==
[2021-11-02 07:05] VITALS: BMI 22.0
[2021-11-02] MEDS ORDERED: MAGNESIUM CITRATE 300 ML BOTTLE PO PRN (09:41)
[2021-11-02] MEDS ORDERED: ACETAMINOPHEN 325 MG TABLET (FP) PO PRN ×2 (09:41)
[2021-11-02] MEDS ORDERED: MENTHOL/PHENOL 1 EACH UD MM PRN (09:41)
[2021-11-02] MEDS ORDERED: IBUPROFEN 400 MG TABLET (FP) PO PRN (09:41)
[2021-11-02] MEDS ORDERED: MAG HYDROX/AL HYDROX/SIMETH 30 ML UNIT-DOSE CUP PO PRN (09:41)
[2021-11-02] MEDS ORDERED: MAGNESIUM HYDROX 2400MG/30ML ORAL SUSPENSION 30 ML CUP PO PRN (09:41)
[2021-11-02] MEDS: hydrOXYzine PAMOATE 25 MG CAPSULE (FP) PO SCH ×4 (11:00→23:05)
[2021-11-02] MEDS: PRENATAL VITAMINS W/ FOLIC ACID TABLET (FP) PO SCH (11:00)
[2021-11-02] MEDS ORDERED: hydrOXYzine PAMOATE 25 MG CAPSULE (FP) PO ONE (11:20)
[2021-11-02] MEDS: BISMUTH SUBSALICYLATE 262 MG/15 ML BTL PO PRN (14:41)
[2021-11-02] MEDS: ONDANSETRON *ODT* 4 MG TABLET SL PRN (14:42)
[2021-11-02 16:10] LABS: HEMATOCRIT 38.1 % (35.4-49); HEMOGLOBIN 12.4 GM/dL (11.7-16.9); MCHC 32.6 g/dl (32.0-35.9); MEAN CELL VOLUME 89.1 fl (80-96); PLATELET COUNT 318 10^3/uL (134-434); RBC 4.28 M/mm3 (4.00-5.60); RDW 12.9 % (11.9-15.9); WHITE BLOOD COUNT 5.8 K/mm3 (4.0-10.0)
[2021-11-02 16:17] LABS: CALCIUM 9.1 mg/dL (8.5-10.1)
[2021-11-02 16:18] LABS: ALBUMIN 3.1 g/dl (3.4-5.0); BLOOD UREA NITROGEN 27.8 mg/dL (7-18)
[2021-11-02 16:21] LABS: CREATININE 1.4 mg/dL (0.55-1.3)
[2021-11-02 16:23] LABS: BILIRUBIN,TOTAL 0.7 mg/dL (0.2-1); TOT PROT 6.2 g/dl (6.4-8.2)
[2021-11-02] MEDS: MELATONIN 5 MG TABLETS PO SCH (23:05)
[2021-11-02] MEDS: THIAMINE HCL 100 MG TABLET (FP) PO SCH (23:05)
[2021-11-03] MEDS: hydrOXYzine PAMOATE 25 MG CAPSULE (FP) PO SCH ×5 (05:53→22:53)
[2021-11-03] MEDS: PRENATAL VITAMINS W/ FOLIC ACID TABLET (FP) PO SCH (11:25)
[2021-11-03] MEDS: amLODIPine BESYLATE 5 MG TABLET (FP) PO SCH (11:25)
[2021-11-03] MEDS: ONDANSETRON *ODT* 4 MG TABLET SL PRN (13:33)
[2021-11-03] MEDS ORDERED: methaDONE HCL 10 MG TABLET (FOR DETOX USE ONLY) PO ONE (13:34)
[2021-11-03] MEDS ORDERED: TRIMETHOBENZAMIDE HCL 200MG/2ML INJ IM PRN (13:35)
[2021-11-03] MEDS: BISMUTH SUBSALICYLATE 262 MG/15 ML BTL PO PRN (13:35)
[2021-11-03] MEDS ORDERED: methaDONE HCL 10 MG TABLET (FOR DETOX USE ONLY) ONE (14:11)
[2021-11-03] MEDS: MELATONIN 5 MG TABLETS PO SCH (22:53)
[2021-11-03] MEDS: THIAMINE HCL 100 MG TABLET (FP) PO SCH (22:53)
[2021-11-04] MEDS: hydrOXYzine PAMOATE 25 MG CAPSULE (FP) PO SCH ×5 (06:22→22:24)
[2021-11-04] MEDS ORDERED: methaDONE HCL 10 MG TABLET (FOR DETOX USE ONLY) PO ONE (10:00)
[2021-11-04] MEDS: PRENATAL VITAMINS W/ FOLIC ACID TABLET (FP) PO SCH (10:55)
[2021-11-04] MEDS: amLODIPine BESYLATE 5 MG TABLET (FP) PO SCH (10:55)
[2021-11-04] MEDS: METHOCARBAMOL 500 MG TABLET PO PRN (10:55)
[2021-11-04] MEDS ORDERED: amLODIPine BESYLATE 5 MG TABLET (FP) PO SCH (10:56)
[2021-11-04 11:24] LABS: ALBUMIN 2.7 g/dl (3.4-5.0)
[2021-11-04 11:26] LABS: BILIRUBIN,DIRECT 0.1 mg/dL (0.0-0.2)
[2021-11-04 11:28] LABS: TOT PROT 5.5 g/dl (6.4-8.2)
[2021-11-04 11:29] LABS: BILIRUBIN,TOTAL 0.3 mg/dL (0.2-1)
[2021-11-04] MEDS: LISINOPRIL 5 MG TABLET PO SCH (12:18)
[2021-11-04] MEDS: MELATONIN 5 MG TABLETS PO SCH (22:23)
[2021-11-04] MEDS: THIAMINE HCL 100 MG TABLET (FP) PO SCH (22:23)
[2021-11-05] MEDS: hydrOXYzine PAMOATE 25 MG CAPSULE (FP) PO SCH ×5 (06:25→22:02)
[2021-11-05] MEDS: PRENATAL VITAMINS W/ FOLIC ACID TABLET (FP) PO SCH (10:13)
[2021-11-05] MEDS: amLODIPine BESYLATE 10 MG TABLET (FP) PO SCH (10:13)
[2021-11-05] MEDS: LISINOPRIL 5 MG TABLET PO SCH (10:14)
[2021-11-05] MEDS: MELATONIN 5 MG TABLETS PO SCH (22:01)
[2021-11-05] MEDS: THIAMINE HCL 100 MG TABLET (FP) PO SCH (22:02)
[2021-11-06] MEDS: METHOCARBAMOL 500 MG TABLET PO PRN ×2 (05:43→10:46)
[2021-11-06] MEDS: hydrOXYzine PAMOATE 25 MG CAPSULE (FP) PO SCH ×5 (05:43→22:12)
[2021-11-06] MEDS ORDERED: methaDONE HCL 10 MG TABLET (FOR DETOX USE ONLY) PO ONE (10:00)
[2021-11-06] MEDS: amLODIPine BESYLATE 10 MG TABLET (FP) PO SCH (10:46)
[2021-11-06] MEDS: PRENATAL VITAMINS W/ FOLIC ACID TABLET (FP) PO SCH (10:46)
[2021-11-06] MEDS: LISINOPRIL 5 MG TABLET PO SCH (10:47)
[2021-11-06] MEDS: MELATONIN 5 MG TABLETS PO SCH (22:12)
[2021-11-06] MEDS: THIAMINE HCL 100 MG TABLET (FP) PO SCH (22:12)
[2021-11-07] MEDS: hydrOXYzine PAMOATE 25 MG CAPSULE (FP) PO SCH ×2 (06:04→09:44)
[2021-11-07 09:39] VITALS: BP 129/73; PULSE 81; TEMP 98
[2021-11-07] MEDS: amLODIPine BESYLATE 10 MG TABLET (FP) PO SCH (09:43)
[2021-11-07] MEDS: PRENATAL VITAMINS W/ FOLIC ACID TABLET (FP) PO SCH (09:43)
[2021-11-07] MEDS: LISINOPRIL 5 MG TABLET PO SCH (09:43)
== END 2021-11-07 09:40 | disposition home or self-care (01) | DRG 773 ==
LOC: YASAS 05:50 → Y6N 10:32
PROVIDERS: ADMIT Allergy & Immunology; ATTEND Allergy & Immunology
PROC: HZ2ZZZZ Detoxification Services for Substance Abuse Treatment (ICD-10-PCS; principal; 2021-11-02)
DX: F11.23 Opioid dependence with withdrawal (principal); F14.20 Cocaine dependence, uncomplicated; F39 Unspecified mood [affective] disorder; I10 Essential (primary) hypertension; R79.89 Other specified abnormal findings of blood chemistry; Z87.891 Personal history of nicotine dependence; Z59.01 Sheltered homelessness; Z56.0 Unemployment, unspecified
CPT/HCPCS: 36415; 80053; 80076; 85027; 86780; C9803; Q0162; U0003; U0005

== ENCOUNTER 2022-06-09 01:08 | Inpatient (IN) | payer OTHER ==
[2022-06-09 02:29] VITALS: BMI 22.8
[2022-06-09] MEDS ORDERED: MAGNESIUM CITRATE 300 ML BOTTLE PO PRN (07:01)
[2022-06-09] MEDS ORDERED: ONDANSETRON *ODT* 4 MG TABLET SL PRN (07:01)
[2022-06-09] MEDS ORDERED: NICOTINE 10 MG CARTRIDGE (INHALER) IH PRN (07:01)
[2022-06-09] MEDS ORDERED: DICYCLOMINE HCL 10 MG CAPSULE PO PRN (07:01)
[2022-06-09] MEDS ORDERED: LOPERAMIDE HCL 2 MG CAPSULE PO PRN (07:01)
[2022-06-09] MEDS ORDERED: ACETAMINOPHEN 325 MG TABLET (FP) PO PRN ×2 (07:01)
[2022-06-09] MEDS ORDERED: MAG HYDROX/AL HYDROX/SIMETH 30 ML UNIT-DOSE CUP PO PRN (07:01)
[2022-06-09] MEDS ORDERED: MAGNESIUM HYDROX 2400MG/30ML ORAL SUSPENSION 30 ML CUP PO PRN (07:01)
[2022-06-09] MEDS ORDERED: BENZOCAINE/MENTHOL (CHLORASEPTIC ) LOZENGE MM PRN (07:01)
[2022-06-09] MEDS ORDERED: BISMUTH SUBSALICYLATE 524 MG/30 ML PO PRN (07:01)
[2022-06-09] MEDS ORDERED: IBUPROFEN 400 MG TABLET (FP) PO PRN (07:01)
[2022-06-09] MEDS ORDERED: IBUPROFEN 600 MG TABLET (FP) PO PRN (07:01)
[2022-06-09] MEDS: amLODIPine BESYLATE 10 MG TABLET (FP) PO SCH (11:27)
[2022-06-09] MEDS: PRENATAL VITAMINS W/ FOLIC ACID TABLET (FP) PO SCH (11:27)
[2022-06-09] MEDS: LISINOPRIL 5 MG TABLET PO SCH (11:27)
[2022-06-09] MEDS: METHOCARBAMOL 500 MG TABLET PO PRN ×2 (11:27→18:16)
[2022-06-09] MEDS: THIAMINE HCL 100 MG TABLET (FP) PO SCH (23:12)
[2022-06-09] MEDS: MELATONIN 5 MG TABLETS PO SCH (23:12)
[2022-06-10] MEDS ORDERED: diazePAM 5 MG TABLET PO PRN (09:27)
[2022-06-10] MEDS ORDERED: cloNIDine HCL 0.1 MG TABLET PO PRN (09:27)
[2022-06-10] MEDS ORDERED: methaDONE HCL 10 MG TABLET (FOR DETOX USE ONLY) PO ONE (09:45)
[2022-06-10 10:25] LABS: HEMATOCRIT 36.4 % (35.4-49); HEMOGLOBIN 11.9 GM/dL (11.7-16.9); MCH 29.4 pg (25.7-33.7); MCHC 32.6 g/dl (32.0-35.9); MEAN PLT VOLUME 8.2 fl (7.5-11.1); PLATELET COUNT 242 10^3/uL (134-434); RBC 4.04 M/mm3 (4.00-5.60); RDW 13.6 % (11.9-15.9); WHITE BLOOD COUNT 4.3 K/mm3 (4.0-10.0)
[2022-06-10 10:29] LABS: CALCIUM 8.7 mg/dL (8.5-10.1)
[2022-06-10 10:30] LABS: ALBUMIN 3.2 g/dl (3.4-5.0); BLOOD UREA NITROGEN 13.8 mg/dL (7-18)
[2022-06-10 10:35] LABS: BILIRUBIN,TOTAL 0.4 mg/dL (0.2-1); CREATININE 1.1 mg/dL (0.55-1.3); TOT PROT 6.2 g/dl (6.4-8.2)
[2022-06-10] MEDS ORDERED: cloNIDine HCL 0.1 MG TABLET PO ONE (11:07)
[2022-06-10] MEDS: amLODIPine BESYLATE 10 MG TABLET (FP) PO SCH (11:10)
[2022-06-10] MEDS: METHOCARBAMOL 500 MG TABLET PO PRN (11:10)
[2022-06-10] MEDS: PRENATAL VITAMINS W/ FOLIC ACID TABLET (FP) PO SCH (11:10)
[2022-06-10] MEDS: LISINOPRIL 5 MG TABLET PO SCH (11:10)
[2022-06-10] MEDS: diazePAM 5 MG TABLET PO SCH ×3 (11:16→23:34)
[2022-06-10] MEDS: MELATONIN 5 MG TABLETS PO SCH (23:34)
[2022-06-10] MEDS: THIAMINE HCL 100 MG TABLET (FP) PO SCH (23:34)
[2022-06-11] MEDS: diazePAM 5 MG TABLET PO SCH ×4 (06:37→22:54)
[2022-06-11] MEDS: PRENATAL VITAMINS W/ FOLIC ACID TABLET (FP) PO SCH (11:18)
[2022-06-11] MEDS: amLODIPine BESYLATE 10 MG TABLET (FP) PO SCH (13:50)
[2022-06-11] MEDS: LISINOPRIL 5 MG TABLET PO SCH (13:50)
[2022-06-11] MEDS: METHOCARBAMOL 500 MG TABLET PO PRN (22:53)
[2022-06-11] MEDS: MELATONIN 5 MG TABLETS PO SCH (22:53)
[2022-06-11] MEDS: THIAMINE HCL 100 MG TABLET (FP) PO SCH (22:53)
[2022-06-12] MEDS: diazePAM 5 MG TABLET PO SCH ×2 (05:47→15:00)
[2022-06-12 09:48] VITALS: TEMP 97.3
[2022-06-12] MEDS ORDERED: methaDONE HCL 10 MG TABLET (FOR DETOX USE ONLY) PO ONE (10:00)
[2022-06-12] MEDS: PRENATAL VITAMINS W/ FOLIC ACID TABLET (FP) PO SCH (10:40)
[2022-06-12] MEDS: LISINOPRIL 5 MG TABLET PO SCH (10:41)
[2022-06-12] MEDS: amLODIPine BESYLATE 10 MG TABLET (FP) PO SCH (10:41)
[2022-06-12 14:12] VITALS: BP 123/85; PULSE 81; RESP 17
[2022-06-13] MEDS ORDERED: diazePAM 5 MG TABLET PO SCH (06:00)
[2022-06-14] MEDS ORDERED: diazePAM 5 MG TABLET PO ONE (06:00)
[2022-06-14] MEDS ORDERED: methaDONE HCL 10 MG TABLET (FOR DETOX USE ONLY) PO ONE (10:00)
== END 2022-06-12 17:52 | disposition left against medical advice (07) | DRG 770 ==
LOC: YASAS 01:08 → Y6N 09:58
PROVIDERS: ADMIT Allergy & Immunology; ATTEND Surgery
PROC: HZ2ZZZZ Detoxification Services for Substance Abuse Treatment (ICD-10-PCS; principal; 2022-06-09)
DX: F11.23 Opioid dependence with withdrawal (principal); F10.230 Alcohol dependence with withdrawal, uncomplicated; F14.20 Cocaine dependence, uncomplicated; F20.9 Schizophrenia, unspecified; F41.9 Anxiety disorder, unspecified; I10 Essential (primary) hypertension; Z28.310 Unvaccinated for COVID-19; Z28.9 Immunization not carried out for unspecified reason; Z56.0 Unemployment, unspecified; Z59.00 Homelessness unspecified
CPT/HCPCS: 36415; 80053; 85027; 86780; 87811; 93005; 93010; C9803-CS; J0735; U0003; U0005

== ENCOUNTER 2023-01-03 09:41 | Inpatient (IN) | payer OTHER ==
[2023-01-03 10:10] VITALS: BMI 24.3
[2023-01-03] MEDS ORDERED: LOPERAMIDE HCL 2 MG CAPSULE PO PRN (11:20)
[2023-01-03] MEDS ORDERED: IBUPROFEN 400 MG TABLET (FP) PO PRN (11:20)
[2023-01-03] MEDS ORDERED: BISMUTH SUBSALICYLATE 262 MG/15 ML BTL PO PRN (11:20)
[2023-01-03] MEDS ORDERED: ONDANSETRON *ODT* 4 MG TABLET SL PRN (11:20)
[2023-01-03] MEDS ORDERED: BENZOCAINE/MENTHOL (CHLORASEPTIC ) LOZENGE MM PRN (11:20)
[2023-01-03] MEDS ORDERED: guaiFENesin 600 MG TABLET.ER (FP) PO PRN (11:20)
[2023-01-03] MEDS ORDERED: IBUPROFEN 600 MG TABLET (FP) PO PRN (11:20)
[2023-01-03] MEDS ORDERED: MAG HYDROX/AL HYDROX/SIMETH 30 ML UNIT-DOSE CUP PO PRN (11:20)
[2023-01-03] MEDS ORDERED: NALOXONE HCL 0.4 MG/ML VIAL IM PRN (11:20)
[2023-01-03] MEDS ORDERED: ACETAMINOPHEN 325 MG TABLET (FP) PO PRN (11:20)
[2023-01-03] MEDS ORDERED: BENZONATATE 200 MG CAPSULE PO PRN (11:20)
[2023-01-03] MEDS ORDERED: DICYCLOMINE HCL 10 MG CAPSULE PO PRN (11:20)
[2023-01-03] MEDS ORDERED: methaDONE HCL 10 MG TABLET (FOR DETOX USE ONLY) PO ONE (11:20)
[2023-01-03] MEDS ORDERED: NICOTINE 10 MG CARTRIDGE (INHALER) IH PRN (11:20)
[2023-01-03] MEDS ORDERED: NALOXONE HCL (KLOXXADO) 8 MG SPRAY NS PRN (11:20)
[2023-01-03] MEDS ORDERED: POLYETHYLENE GLYCOL (HEALTHYLAX) 3350 17 GM PACKET PO PRN (11:20)
[2023-01-03] MEDS ORDERED: MAGNESIUM HYDROX 2400MG/30ML ORAL SUSPENSION 30 ML CUP PO PRN (11:20)
[2023-01-03] MEDS ORDERED: LISINOPRIL 5 MG TABLET PO SCH (11:22)
[2023-01-03] MEDS ORDERED: PRENATAL VITAMINS W/ FOLIC ACID TABLET (FP) PO ONE (12:15)
[2023-01-03] MEDS ORDERED: methaDONE HCL 10 MG TABLET (FOR DETOX USE ONLY) ONE (12:15)
[2023-01-03] MEDS ORDERED: amLODIPine BESYLATE 5 MG TABLET (FP) ONE (12:15)
[2023-01-03] MEDS: PRENATAL VITAMINS W/ FOLIC ACID TABLET (FP) PO SCH (12:20)
[2023-01-03] MEDS: amLODIPine BESYLATE 10 MG TABLET (FP) PO SCH (12:20)
[2023-01-03] MEDS: METHOCARBAMOL 500 MG TABLET PO PRN (12:40)
[2023-01-03 13:20] LABS: HEMATOCRIT 36.4 % (35.4-49); HEMOGLOBIN 11.9 GM/dL (11.7-16.9); MCH 28.1 pg (25.7-33.7); MCHC 32.7 g/dl (32.0-35.9); MEAN CELL VOLUME 85.9 fl (80-96); MEAN PLT VOLUME 6.9 fl (7.5-11.1); PLATELET COUNT 348 10^3/uL (134-434); RBC 4.23 M/mm3 (4.00-5.60); RDW 13.5 % (11.9-15.9); WHITE BLOOD COUNT 6.1 K/mm3 (4.0-10.0)
[2023-01-03 14:19] LABS: ALBUMIN 2.9 g/dl (3.4-5.0); BLOOD UREA NITROGEN 21.8 mg/dL (7-18)
[2023-01-03 14:22] LABS: CREATININE 1.2 mg/dL (0.55-1.3)
[2023-01-03 14:24] LABS: TOT PROT 6.5 g/dl (6.4-8.2)
[2023-01-03 14:25] LABS: BILIRUBIN,TOTAL 0.2 mg/dL (0.2-1)
[2023-01-03] MEDS: MELATONIN 5 MG TABLETS PO SCH (22:54)
[2023-01-03] MEDS: THIAMINE HCL 100 MG TABLET (FP) PO SCH (22:54)
[2023-01-04] MEDS: LISINOPRIL 5 MG TABLET PO SCH (10:51)
[2023-01-04] MEDS: amLODIPine BESYLATE 10 MG TABLET (FP) PO SCH (10:51)
[2023-01-04] MEDS: PRENATAL VITAMINS W/ FOLIC ACID TABLET (FP) PO SCH (10:51)
[2023-01-04] MEDS: hydrOXYzine PAMOATE 25 MG CAPSULE (FP) PO PRN ×2 (18:31→22:52)
[2023-01-04] MEDS: METHOCARBAMOL 500 MG TABLET PO PRN (18:31)
[2023-01-04] MEDS: cloNIDine HCL 0.1 MG TABLET PO PRN (22:00)
[2023-01-04] MEDS: MELATONIN 5 MG TABLETS PO SCH (22:52)
[2023-01-04] MEDS: THIAMINE HCL 100 MG TABLET (FP) PO SCH (22:52)
[2023-01-05] MEDS ORDERED: methaDONE HCL 10 MG TABLET (FOR DETOX USE ONLY) PO ONE (10:00)
[2023-01-05] MEDS: PRENATAL VITAMINS W/ FOLIC ACID TABLET (FP) PO SCH (10:35)
[2023-01-05] MEDS: amLODIPine BESYLATE 10 MG TABLET (FP) PO SCH (10:35)
[2023-01-05] MEDS: LISINOPRIL 5 MG TABLET PO SCH (10:36)
[2023-01-05] MEDS: MELATONIN 5 MG TABLETS PO SCH (22:41)
[2023-01-05] MEDS: cloNIDine HCL 0.1 MG TABLET PO PRN (22:41)
[2023-01-05] MEDS: METHOCARBAMOL 500 MG TABLET PO PRN (22:41)
[2023-01-05] MEDS: hydrOXYzine PAMOATE 25 MG CAPSULE (FP) PO PRN (22:41)
[2023-01-05] MEDS: THIAMINE HCL 100 MG TABLET (FP) PO SCH (22:41)
[2023-01-06] MEDS: amLODIPine BESYLATE 10 MG TABLET (FP) PO SCH (10:55)
[2023-01-06] MEDS: hydrOXYzine PAMOATE 25 MG CAPSULE (FP) PO PRN (10:55)
[2023-01-06] MEDS: METHOCARBAMOL 500 MG TABLET PO PRN ×2 (10:55→22:17)
[2023-01-06] MEDS: LISINOPRIL 5 MG TABLET PO SCH (10:56)
[2023-01-06] MEDS: PRENATAL VITAMINS W/ FOLIC ACID TABLET (FP) PO SCH (10:56)
[2023-01-06] MEDS ORDERED: diazePAM 5 MG TABLET PO PRN (13:04)
[2023-01-06] MEDS ORDERED: MELATONIN 5 MG TABLETS PO PRN (13:05)
[2023-01-06] MEDS: THIAMINE HCL 100 MG TABLET (FP) PO SCH (22:17)
[2023-01-07] MEDS ORDERED: methaDONE HCL 10 MG TABLET (FOR DETOX USE ONLY) PO ONE (10:00)
[2023-01-07] MEDS: amLODIPine BESYLATE 10 MG TABLET (FP) PO SCH (10:30)
[2023-01-07] MEDS: PRENATAL VITAMINS W/ FOLIC ACID TABLET (FP) PO SCH (10:30)
[2023-01-07] MEDS: LISINOPRIL 5 MG TABLET PO SCH (10:30)
[2023-01-07 22:00] VITALS: BP 143/99; PULSE 66; RESP 17; TEMP 98
== END 2023-01-07 20:55 | disposition left against medical advice (07) | DRG 770 ==
LOC: YASAS 09:41 → Y6N 11:23
PROVIDERS: ADMIT Allergy & Immunology; ATTEND Surgery
PROC: HZ2ZZZZ Detoxification Services for Substance Abuse Treatment (ICD-10-PCS; principal; 2023-01-03)
DX: F11.23 Opioid dependence with withdrawal (principal); F10.230 Alcohol dependence with withdrawal, uncomplicated; F14.20 Cocaine dependence, uncomplicated; F17.210 Nicotine dependence, cigarettes, uncomplicated; F20.9 Schizophrenia, unspecified; F41.9 Anxiety disorder, unspecified; I10 Essential (primary) hypertension; R79.89 Other specified abnormal findings of blood chemistry; Z28.310 Unvaccinated for COVID-19; Z28.9 Immunization not carried out for unspecified reason; Z59.00 Homelessness unspecified
CPT/HCPCS: 36415; 80053; 85027; 86780; C9803-CS; U0003; U0005